=== PATIENT | female | born 2000 | race Caucasian/White ===

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

== ENCOUNTER 2018-01-04 21:30 | Emergency (ER) | payer BC | END 2018-01-04 22:25 | disposition left against medical advice (07) | LOC: ED 21:30 | DX: Z53.9 Procedure and treatment not carried out, unspecified reason (principal) ==

== ENCOUNTER 2018-01-09 15:16 | Emergency (ER) | payer BC ==
[2018-01-09] MEDS ORDERED: BACIGUENT PACKET TP ONE (15:28)
[2018-01-09] MEDS ORDERED: BACIGUENT PACKET ONE (15:31)
[2018-01-09 15:34] VITALS: BP 143/89; PULSE 75; O2SAT 98
--- NOTE | 2018-01-09 15:38 | ERPHSYRPT ---
- History of Present Illness Time Seen by Provider: 01/09/18 15:31 Source: patient Exam Limitations: no limitations Physician History: This is a 17-year-old white female she arrives with complaint of a burn to her distal left fourth finger radial aspect, 4 days ago She states today she was noticing drainage coming from the area feels like it is erythematous. Denies any other complaints. Patient states she burned herself on hot grease at home. Past medical history negative. Past surgical history tendon release left wrist. Social history negative. tetanus history less than 5 years Timing/Duration: day(s) (4 days ago) Severity: moderate Modifying Factors: Improves With: nothing Associated Symptoms: other (burn left fourth distal finger), No nausea, No vomiting, No abdominal pain, No shortness of breath, No heartburn, No diaphoresis, No cough, No chills, No chest pain, No fever, No headaches, No loss of appetite, No malaise, No rash, No syncope, No seizure, No weakness Allergies/Adverse Reactions: No Known Drug Allergies Allergy (Verified 05/28/17 18:19) Hx Tetanus, Diphtheria Vaccination/Date Given: Yes Hx Influenza Vaccination/Date Given: No Hx Pneumococcal Vaccination/Date Given: No - Review of Systems Constitutional: No Fever, No Chills Eyes: No Symptoms Ears, Nose, & Throat: No Symptoms Respiratory: No Cough, No Dyspnea Cardiac: No Chest Pain, No Edema, No Syncope Abdominal/Gastrointestinal: No Abdominal Pain, No Nausea, No Vomiting, No Diarrhea Genitourinary Symptoms: No Dysuria Musculoskeletal: No Back Pain, No Neck Pain Skin: Other (Burn left fourth distal finger 4 days old) Neurological: No Symptoms Psychological: No Symptoms Endocrine: No Symptoms All Other Systems: Reviewed and Negative - Past Medical History Pertinent Past Medical History: Yes Neurological History: No Pertinent History ENT History: No Pertinent History Cardiac History: No Pertinent History Respiratory History: No Pertinent History Endocrine Medical History: No Pertinent History Musculoskeletal History: No Pertinent History GI Medical History: No Pertinent History History: No Pertinent History Psycho-Social History: No Pertinent History Female Reproductive Disorders: No Pertinent History - Past Surgical History Past Surgical History: Yes Neuro Surgical History: No Pertinent History Cardiac: No Pertinent History Respiratory: No Pertinent History Gastrointestinal: Cholecystectomy Genitourinary: No Pertinent History Musculoskeletal: No Pertinent History Female Surgical History: No Pertinent History Other Surgical History: tendon release lt wrist - Social History Smoking Status: Former smoker How long have you smoked: 1yr Exposure to second hand smoke: Yes Drug Use: none Patient Lives Alone: No - Physical Exam General Appearance: no apparent distress, alert Eye Exam: PERRL/EOMI, eyes nml inspection Ears, Nose, Throat Exam: normal ENT inspection, TMs normal, pharynx normal, moist mucous membranes Neck Exam: normal inspection Respiratory Exam: normal breath sounds, lungs clear, No respiratory distress Cardiovascular Exam: regular rate/rhythm, normal heart sounds, normal peripheral pulses Gastrointestinal/Abdomen Exam: soft, normal bowel sounds, No tenderness, No mass Back Exam: normal inspection, normal range of motion, No CVA tenderness, No vertebral tenderness Extremity Exam: normal range of motion, other (left third distal finger with second-degree burn radial aspect previous vesicle has been removed slight erythema to the area.) Neurologic Exam: alert, oriented x 3, cooperative, normal mood/affect, nml cerebellar function, nml station & gait, sensation nml, No motor deficits Skin Exam: other (distal left third finger with second-degree burn mild erythema to the area burn located radial aspect overlying the distal phalanx) SpO2 Interpretation: normal (97%) - Course Nursing assessment & vital signs reviewed: Yes Ordered Tests: Active Orders 24 hr Category Date Time Status Wound Care STAT Care 01/09/18 15:28 Active Medication Summary Generic Name Dose Route Start Last Admin Trade Name Freq PRN Reason Stop Dose Admin Bacitracin Zinc 0.9 gm 01/09/18 15:28 Baciguent Packet TP 01/09/18 15:29 STAT ONE - Progress Progress: improved Progress Note: 01/09/18 15:35 This is a 17-year-old white female she arrives with complaint of a burn to her left third finger which she suffered 4 days ago on hot grease at home. Patient has full range of motion to all extremities. She has an approximately 1.51.5 cm area representing a second-degree burn on the radial aspect of her distal left third finger overlying the distal phalanx. She has mild erythema to the area she does state that she had had some drainage on this earlier today. Patient states that her tetanus is up-to-date last menstrual period approximately one half weeks ago. Will go ahead and have nurses clean the burn area, apply bacitracin and dress the burn area. Will place patient on Bactrim DS one orally twice a day for 10 days. Patient account continue placing bacitracin on the area. Keep area clean. Tylenol as needed for pain. - Departure Time of Disposition: 15:38 Departure Disposition: Home Clinical Impression: Second degree burn of finger of left hand Qualifiers: Encounter type: initial encounter Qualified Code(s): T23.222A - Burn of second degree of single left finger (nail) except thumb, initial encounter Condition: Fair Critical Care Time: No Referrals: DOCTOR,NO FAMILY [Primary Care Provider] - Additional Instructions: Return home. Clean area and apply bacitracin daily. Keep area clean. Bactrim DS as prescribed. Tylenol every 4 hours as needed for pain. Follow-up with your family doctor if symptoms no better in 48 hours become worse or persist longer than one week. Return for acute distress or for severe symptoms. Prescriptions: Smz/Tmp Ds Tablet [Bactrim Ds Tablet] 1 tab PO BID #20 tablet
== END 2018-01-09 15:53 | disposition home or self-care (01) ==
LOC: ED 15:16
DX: T23.222A Burn of second degree of single left finger (nail) except thumb, initial encounter (principal); X12.XXXA Contact with other hot fluids, initial encounter
CPT/HCPCS: 99283; A9270-GY

== ENCOUNTER 2018-02-09 22:04 | Emergency (ER) | payer BC ==
--- NOTE | 2018-02-09 22:56 | ERPHSYRPT ---
- History of Present Illness Time Seen by Provider: 02/09/18 22:51 Historian: patient, other (fiance) Exam Limitations: no limitations Patient Subjective Stated Complaint: Lower right sided abdominal pain Triage Nursing Assessment: Patient ambulated back to ED and transferred self to bed. Patient A+O X 3. Patient complains of lower right sided abdominal pain . Patient has been having pain for 2 days with vomiting and fever. Patient vomited before coming to ED. Patient fever this am was 102.0. Patient states she is having N/V. Abdomen noted to be soft and round with BS X 4. Physician History: The patient is a 17-year-old female with her fianc complaining that she has abdominal pain, nausea, vomiting, and diarrhea. The diarrhea is watery and has been going on for 3 days. The vomiting has been for 2 days. She also has intermittent fevers with temperature of up to 102. Her last menstrual period was December 17. [facility] and the test was negative. Her past medical history is significant for tonsillectomy, cholecystectomy. Timing/Duration: day(s) (2) Activities at Onset: none Quality: aching Abdominal Pain Onset Location: periumbilical Pain Radiation: no radiation Severity of Pain-Max: moderate Severity of Pain-Current: moderate Modifying Factors: Improves With: nothing Associated Symptoms: diarrhea, fever/chills, nausea, vomiting Previous symptoms: no prior history Allergies/Adverse Reactions: No Known Drug Allergies Allergy (Verified 02/09/18 22:22) Hx Tetanus, Diphtheria Vaccination/Date Given: No Hx Influenza Vaccination/Date Given: Yes Hx Pneumococcal Vaccination/Date Given: No Immunizations Up to Date: Yes - Review of Systems Eyes: No Symptoms Ears, Nose, & Throat: No Symptoms Respiratory: No Cough, No Dyspnea Cardiac: No Chest Pain, No Edema, No Syncope Abdominal/Gastrointestinal: Abdominal Pain, Nausea, Vomiting, Diarrhea Genitourinary Symptoms: No Dysuria Musculoskeletal: No Back Pain, No Neck Pain Skin: No Rash Neurological: No Dizziness, No Focal Weakness, No Sensory Changes Psychological: No Symptoms Endocrine: No Symptoms Hematologic/Lymphatic: No Symptoms Immunological/Allergic: No Symptoms All Other Systems: Reviewed and Negative - Past Medical History Pertinent Past Medical History: Yes Neurological History: No Pertinent History ENT History: No Pertinent History Cardiac History: No Pertinent History Respiratory History: No Pertinent History Endocrine Medical History: No Pertinent History Musculoskeletal History: No Pertinent History GI Medical History: No Pertinent History History: No Pertinent History Psycho-Social History: No Pertinent History Female Reproductive Disorders: No Pertinent History - Past Surgical History Past Surgical History: Yes Neuro Surgical History: No Pertinent History Cardiac: No Pertinent History Respiratory: No Pertinent History Gastrointestinal: Cholecystectomy Genitourinary: No Pertinent History Musculoskeletal: No Pertinent History Female Surgical History: No Pertinent History Other Surgical History: tendon release lt wrist - Social History Smoking Status: Never smoker How long have you smoked: 1yr Exposure to second hand smoke: Yes Drug Use: none Patient Lives Alone: No - Female History Hx Last Menstrual Period: December 17 Hx Now: No (Unsure) - Nursing Vital Signs Nursing Vital Signs: Initial Vital Signs Temperature 97.9 F 02/09/18 22:17 Pulse Rate 81 02/09/18 22:17 Respiratory Rate 18 02/09/18 22:17 Blood Pressure 154/77 02/09/18 22:17 O2 Sat by Pulse Oximetry 96 02/09/18 22:17 Pain Scale Pain Intensity 8 - Physical Exam General Appearance: mild distress, obese Eye Exam: PERRL/EOMI, eyes nml inspection Ears, Nose, Throat Exam: normal ENT inspection, pharynx normal, moist mucous membranes Neck Exam: normal inspection, non-tender, supple, full range of motion Respiratory Exam: normal breath sounds, lungs clear, No respiratory distress Cardiovascular Exam: regular rate/rhythm, normal heart sounds Gastrointestinal/Abdomen Exam: soft, tenderness (periumbilical) Pelvic Exam: not done Rectal Exam: not done Back Exam: normal inspection, normal range of motion, No CVA tenderness, No vertebral tenderness Extremity Exam: normal inspection, normal range of motion, pelvis stable Neurologic Exam: alert, oriented x 3, cooperative, normal mood/affect, nml cerebellar function, sensation nml, No motor deficits Skin Exam: normal color, warm, dry SpO2 Interpretation: normal SpO2: 96 Oxygen Delivery: Room Air - CT Exams Abdomen/Pelvis CT Interpretation: Negative, Tele-radiologist Report (per Dr Ahuja) Ordered Tests: Active Orders 24 hr Category Date Time Status Clean Catch Urine Specimen STAT Care 02/09/18 23:03 Active IV Insertion STAT Care 02/09/18 23:03 Active ABDOMEN AND PELVIS W/0 CONTRAS [CT] Stat Exams 02/09/18 23:04 Taken CBC W DIFF Stat Lab 02/09/18 22:45 Completed CMP Stat Lab 02/09/18 22:45 Completed HCG QUALITATIVE,SERUM Stat Lab 02/09/18 22:45 Completed LIPASE Stat Lab 02/09/18 22:45 Completed Lactic Acid Stat Lab 02/09/18 23:15 Completed UA W/RFX UR CULTURE Stat Lab 02/09/18 22:45 Completed Urine Triage Profile Stat Lab 02/09/18 22:45 Completed Medication Summary Discontinued Medications Generic Name Dose Route Start Last Admin Trade Name Antonyq PRN Reason Stop Dose Admin Famotidine 20 mg 02/09/18 23:03 02/09/18 23:37 Pepcid 20 Mg Vial IV 02/09/18 23:04 20 mg STAT ONE Administration Famotidine Confirm 02/09/18 23:35 Pepcid 20 Mg Vial Administered 02/09/18 23:36 Dose 20 mg IV .STK-MED ONE Sodium Chloride 1,000 mls @ 999 mls/hr 02/09/18 23:03 02/09/18 23:38 Sodium Chloride 0.9% 1000 Ml IV 02/10/18 00:03 999 mls/hr .Q1H1M STA Administration Sodium Chloride Confirm 02/09/18 23:35 Sodium Chloride 0.9% 1000 Ml Administered 02/09/18 23:36 Dose 1,000 mls @ ud .ROUTE .STK-MED ONE Morphine Sulfate 4 mg 02/09/18 23:03 02/09/18 23:37 Morphine Sulfate 4 Mg Inj IV 02/09/18 23:04 4 mg STAT ONE Administration Morphine Sulfate Confirm 02/09/18 23:35 Morphine Sulfate 4 Mg Inj Administered 02/09/18 23:36 Dose 4 mg .ROUTE .STK-MED ONE Promethazine HCl 12.5 mg 02/09/18 23:03 02/09/18 23:37 Phenergan 25 Mg Inj IV 02/09/18 23:04 12.5 mg STAT ONE Administration Promethazine HCl Confirm 02/09/18 23:35 Phenergan 25 Mg Inj Administered 02/09/18 23:36 Dose 25 mg .ROUTE .STK-MED ONE Lab/Rad Data: Laboratory Result Diagrams 02/09/18 22:45 02/09/18 22:45 Laboratory Results 02/09/18 02/09/18 02/09/18 Range/Units 23:15 22:45 22:45 WBC (4.0-10.5) K/mm3 RBC (4.1-5.4) M/mm3 Hgb (12.0-16.0) gm/dl Hct (35-47) % MCV (78-100) fl MCH (26-32) pg MCHC (32-36) g/dl RDW (11.5-14.0) % Plt Count (150-450) K/mm3 MPV (6-9.5) fl Gran % (36.0-66.0) % Eos # (Auto) (0-0.5) Absolute Lymphs (auto) (1.0-4.6) Absolute Monos (auto) (0.0-1.3) Lymphocytes % (24.0-44.0) % Monocytes % (0.0-12.0) % Eosinophils % (0.00-5.0) % Basophils % (0.0-0.4) % Absolute Granulocytes (1.4-6.9) Basophils # (0-0.4) Sodium (137-145) mmol/L Potassium (3.5-5.1) mmol/L Chloride (98-107) mmol/L Carbon Dioxide (22-30) mmol/L Anion Gap (5-15) MEQ/L BUN (7-17) mg/dL Creatinine (0.52-1.04) mg/dL Estimated GFR ML/MIN Glucose (74-106) mg/dL Lactic Acid 1.5 (0.4-2.0) Calcium (8.4-10.2) mg/dL Total Bilirubin (0.2-1.3) mg/dL AST (14-36) U/L ALT (0-35) U/L Alkaline Phosphatase (38-126) U/L Serum Total Protein (6.3-8.2) g/dL Albumin (3.5-5.0) g/dL Lipase (23-300) U/L Serum , Qual (Negative) Urine Color YELLOW (YELLOW) Urine Appearance SLIGHTLY CLOUDY (CLEAR) Urine pH 5.0 (5-6) Ur Specific [place] 1.017 (1.005-1.025) Urine Protein NEGATIVE (Negative) Urine Ketones NEGATIVE (NEGATIVE) Urine Blood NEGATIVE (0-5) Fabio/ul Urine Nitrite NEGATIVE (NEGATIVE) Urine Bilirubin NEGATIVE (NEGATIVE) Urine Urobilinogen NEGATIVE (0-1) mg/dL Ur Leukocyte Esterase NEGATIVE (NEGATIVE) Urine WBC (Auto) 0-2 (0-5) /HPF Urine RBC (Auto) NONE (0-2) /HPF U Epithel Cells (Auto) RARE (FEW) /HPF Urine Bacteria (Auto) RARE (NEGATIVE) /HPF Urine Mucus (Auto) SLIGHT (NEGATIVE) /HPF Urine Culture Reflexed NO (NO) Urine Glucose NEGATIVE (NEGATIVE) mg/dL Urine Opiates Level NEGATIVE (NEGATIVE) Ur Methadone NEGATIVE (NEGATIVE) Urine Barbiturates NEGATIVE (NEGATIVE) Ur Phencyclidine (PCP) NEGATIVE (NEGATIVE) Urine Amphetamine NEGATIVE (NEGATIVE) U Benzodiazepine Level NEGATIVE (NEGATIVE) Urine Cocaine NEGATIVE (NEGATIVE) Urine Marijuana (THC) NEGATIVE (NEGATIVE) 02/09/18 02/09/18 02/09/18 Range/Units 22:45 22:45 22:45 WBC 10.9 H (4.0-10.5) K/mm3 RBC 4.89 (4.1-5.4) M/mm3 Hgb 13.9 (12.0-16.0) gm/dl Hct 41.5 (35-47) % MCV 84.9 (78-100) fl MCH 28.4 (26-32) pg MCHC 33.5 (32-36) g/dl RDW 12.9 (11.5-14.0) % Plt Count 334 (150-450) K/mm3 MPV 10.5 H (6-9.5) fl Gran % 57.4 (36.0-66.0) % Eos # (Auto) 0.35 (0-0.5) Absolute Lymphs (auto) 3.62 (1.0-4.6) Absolute Monos (auto) 0.62 (0.0-1.3) Lymphocytes % 33.3 (24.0-44.0) % Monocytes % 5.7 (0.0-12.0) % Eosinophils % 3.2 (0.00-5.0) % Basophils % 0.4 (0.0-0.4) % Absolute Granulocytes 6.23 (1.4-6.9) Basophils # 0.04 (0-0.4) Sodium 140 (137-145) mmol/L Potassium 3.9 (3.5-5.1) mmol/L Chloride 105 (98-107) mmol/L Carbon Dioxide 23 (22-30) mmol/L Anion Gap 16.1 H (5-15) MEQ/L BUN 15 (7-17) mg/dL Creatinine 0.76 (0.52-1.04) mg/dL Estimated GFR > 60.0 ML/MIN Glucose 102 (74-106) mg/dL Lactic Acid (0.4-2.0) Calcium 9.7 (8.4-10.2) mg/dL Total Bilirubin 0.40 (0.2-1.3) mg/dL AST 29 (14-36) U/L ALT 26 (0-35) U/L Alkaline Phosphatase 81 (38-126) U/L Serum Total Protein 8.1 (6.3-8.2) g/dL Albumin 4.9 (3.5-5.0) g/dL Lipase 85 (23-300) U/L Serum , Qual NEGATIVE (Negative) Urine Color (YELLOW) Urine Appearance (CLEAR) Urine pH (5-6) Ur Specific [place] (1.005-1.025) Urine Protein (Negative) Urine Ketones (NEGATIVE) Urine Blood (0-5) Fabio/ul Urine Nitrite (NEGATIVE) Urine Bilirubin (NEGATIVE) Urine Urobilinogen (0-1) mg/dL Ur Leukocyte Esterase (NEGATIVE) Urine WBC (Auto) (0-5) /HPF Urine RBC (Auto) (0-2) /HPF U Epithel Cells (Auto) (FEW) /HPF Urine Bacteria (Auto) (NEGATIVE) /HPF Urine Mucus (Auto) (NEGATIVE) /HPF Urine Culture Reflexed (NO) Urine Glucose (NEGATIVE) mg/dL Urine Opiates Level (NEGATIVE) Ur Methadone (NEGATIVE) Urine Barbiturates (NEGATIVE) Ur Phencyclidine (PCP) (NEGATIVE) Urine Amphetamine (NEGATIVE) U Benzodiazepine Level (NEGATIVE) Urine Cocaine (NEGATIVE) Urine Marijuana (THC) (NEGATIVE) - Progress Progress: improved Counseled pt/family regarding: lab results, diagnosis, rad results - Departure Time of Disposition: 01:03 Departure Disposition: Home Clinical Impression: Gastroenteritis Condition: Stable Critical Care Time: No Referrals: DOCTOR,NO FAMILY [Primary Care Provider] - Additional Instructions: You have nausea, vomiting, and diarrhea (gastroenteritis). You were given famotidine 20 mg, morphine 4 mg, Phenergan 12 1/2 mg, and fluids by IV in the ER. Take Zofran 4 mg ODT every 6 hours as needed for nausea and vomiting. Start with a full liquid diet and advance slowly as tolerated. You were given a work excuse for 02/10/18. Follow-up with your primary medical doctor as needed. Your test was negative.
[2018-02-09] MEDS ORDERED: Phenergan 25 MG INJ IV ONE (23:03)
[2018-02-09] MEDS ORDERED: Sodium Chloride 0.9% 1000 ML 1,000 ML IV STA (23:03)
[2018-02-09] MEDS ORDERED: MORPHINE SULFATE 4 MG INJ IV ONE (23:03)
[2018-02-09] MEDS ORDERED: Pepcid 20 MG VIAL IV ONE ×2 (23:03→23:35)
[2018-02-09 23:23] LABS: BASOPHIL % 0.4 % (0.0-0.4); Basophil (Absolute #) 0.04 (0-0.4); Eosinophil % 3.2 % (0.00-5.0); Eosinophil (Absolute #) 0.35 (0-0.5); Granulocyte Absolute (ANC) 6.23 (1.4-6.9); Granulocytes % 57.4 % (36.0-66.0); Hematocrit 41.5 % (35-47); Hemoglobin 13.9 gm/dl (12.0-16.0); Lymphocyte (Absolute #) 3.62 (1.0-4.6); Lymphocytes % 33.3 % (24.0-44.0); Mean Cell Volume 84.9 fl (78-100); Mean Corpuscular Hemoglobin 28.4 pg (26-32); Mean Corpuscular Hgb Concent. 33.5 g/dl (32-36); Mean Platelet Volume 10.5 fl (6-9.5); Monocyte (Absolute #) 0.62 (0.0-1.3); Monocytes % 5.7 % (0.0-12.0); Platelet Count 334 K/mm3 (150-450); Red Blood Count 4.89 M/mm3 (4.1-5.4); Red Cell Distribution Width 12.9 % (11.5-14.0); White Blood Count 10.9 K/mm3 (4.0-10.5)
[2018-02-09] MEDS ORDERED: MORPHINE SULFATE 4 MG INJ ONE (23:35)
[2018-02-09] MEDS ORDERED: Phenergan 25 MG INJ ONE (23:35)
[2018-02-09] MEDS ORDERED: Sodium Chloride 0.9% 1000 ML 1,000 ML ONE (23:35)
[2018-02-09 23:39] LABS: ALBUMIN 4.9 g/dL (3.5-5.0); ALKALINE PHOSPHATASE 81 U/L (38-126); ANION GAP 16.1 MEQ/L (5-15); BLOOD UREA NITROGEN 15 mg/dL (7-17); CHLORIDE 105 mmol/L (98-107); Calcium 9.7 mg/dL (8.4-10.2); Carbon Dioxide 23 mmol/L (22-30); Creatinine 1 0.76 mg/dL (0.52-1.04); Glucose 102 mg/dL (74-106); LIPASE 85 U/L (23-300); Potassium 3.9 mmol/L (3.5-5.1); SGOT/AST 29 U/L (14-36); SGPT/ALT 26 U/L (0-35); SODIUM 140 mmol/L (137-145); Total Protein 8.1 g/dL (6.3-8.2)
[2018-02-09 23:42] LABS: Appearance SLIGHTLY CLOUDY (CLEAR); Bilirubin NEGATIVE (NEGATIVE); Blood NEGATIVE Ery/ul (0-5); Glucose NEGATIVE (NEGATIVE); Ketones NEGATIVE (NEGATIVE); Leukocyte Esterase NEGATIVE (NEGATIVE); Nitrite NEGATIVE (NEGATIVE); Protein,Urine Dip NEGATIVE (Negative); Specific Gravity 1.017 (1.005-1.025); Urobilinogen NEGATIVE mg/dL (0-1)
[2018-02-09 23:43] LABS: Amphetamine,Urine NEGATIVE (NEGATIVE); Barbiturate,Urine NEGATIVE (NEGATIVE); Benzodiazepine,Urine NEGATIVE (NEGATIVE); Cocaine,Urine NEGATIVE (NEGATIVE); Methadone,Urine NEGATIVE (NEGATIVE); Opiate,Urine NEGATIVE (NEGATIVE); PCP,Urine NEGATIVE (NEGATIVE); THC,Urine NEGATIVE (NEGATIVE)
[2018-02-09 23:52] VITALS: PULSE 65
[2018-02-10] MEDS ORDERED: ZOFRAN ODT 4 MG PO PRN (01:01)
[2018-02-10 01:02] VITALS: O2SAT 96
[2018-02-10 01:05] VITALS: BP 133/62
[2018-02-10] MEDS ORDERED: ZOFRAN ODT 4 MG ONE (01:08)
--- NOTE | 2018-02-11 00:14 | XRAY ---
Exam: CT of the abdomen and pelvis without IV contrast from 02/10/2018. CTDI: 23.68 Comparison: None. Indication: 17-year-old female with lower right side and periumbilical abdominal pain associated with nausea/vomiting and diarrhea. The patient also complains of fever. She has a history of prior cholecystectomy. Technique: Non-IV contrast axial images were obtained through the abdomen and pelvis. Reconstructed coronal and sagittal images were created and reviewed. Findings: The visualized lung bases appear clear. No posterior pleural fluid is seen. The heart size is normal. There is either abundant food or secretions within the stomach lumen. Correlate clinically. The liver appears of unremarkable size. Assessment of the solid organs is limited without the use of IV contrast. No definite liver mass or intrahepatic biliary duct distention is seen. Surgical clips consistent with prior cholecystectomy are seen. The spleen appears of unremarkable size. No splenic mass is seen. A small splenule is seen at the lower anterior margin of the spleen as an incidental note. The pancreas and adrenal glands appear normal. The kidneys appear of normal size and reveal no gross mass, hydronephrosis, or calculi. The abdominal aorta is of normal diameter. No abnormal retroperitoneal lymphadenopathy is seen. There is no free intraperitoneal air. No ventral abdominal wall hernia is seen. I see no findings of acute appendicitis within the right lower quadrant. No other acute inflammatory changes are seen within the right lower quadrant. Some scattered stool is seen throughout the colon. No bowel obstruction is seen. Minimal descending colon and sigmoid colon diverticulosis is seen without evidence of diverticulitis. The uterus is anteflexed. The ovaries are mildly prominent bilaterally. No definite ovarian cyst is seen. I cannot exclude a small amount of nonspecific fluid within the cul-de-sac. Consider further evaluation with a pelvic ultrasound if indicated. The urinary bladder is distended and appears unremarkable. No enlarged pelvic lymph nodes are seen. The pelvic sidewalls are clear. The skeleton reveals no acute fracture or aggressive bone lesion. Incidentally, moderate sized posterior disc protrusions are seen at L4-L5 and L5-S1 on the axial and sagittal images which is unusual in a patient of this age. Correlate clinically. Impression: 1. I see no CT findings to suggest acute appendicitis. 2. Both ovaries are mildly prominent, although no definite ovarian cyst is seen. I cannot exclude a small amount of free fluid within the cul-de-sac. This is nonspecific. Correlate clinically regarding the need for a pelvic ultrasound. 3. Minimal descending colon and sigmoid colon diverticulosis without evidence of diverticulitis. 4. Status post cholecystectomy. 5. No other acute process is seen within the abdomen or pelvis. I do note abundant secretions or food within the stomach lumen. 6. Moderate-sized posterior disc protrusions are seen at L4-L5 and L5-S1 which is somewhat unusual in a patient of this age. Correlate clinically.
== END 2018-02-10 01:24 | disposition home or self-care (01) ==
LOC: ED 22:04
DX: K52.9 Noninfective gastroenteritis and colitis, unspecified (principal); R10.33 Periumbilical pain; R11.2 Nausea with vomiting, unspecified
CPT/HCPCS: 36000; 36415; 74176; 80053; 80307; 81001; 81025; 83605; 83690; 85025; 96360; 96374; 96375; 99284; J2270; J2550; Q0162

== ENCOUNTER 2018-02-16 20:36 | Emergency (ER) | payer BC ==
[2018-02-16 20:44] VITALS: BP 159/96; O2SAT 100
--- NOTE | 2018-02-16 20:45 | ERPHSYRPT ---
- History of Present Illness Time Seen by Provider: 02/16/18 20:40 Source: patient, family Physician History: 17 y/o white female presents with "possible allergic reaction". pt has no known drug allergies. pt ate sugar cookie dough and then suddenly her tongue was swollen and she could not speak. no rash, no wheezing, no stridor. 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 pt denies difficulty swallowing and denies cough. Timing/Duration: today Severity: mild Associated Symptoms: No nausea, No vomiting, No abdominal pain, No shortness of breath, No cough, No fever, No headaches, No malaise, No rash, No syncope Allergies/Adverse Reactions: No Known Drug Allergies Allergy (Verified 02/09/18 22:22) Hx Tetanus, Diphtheria Vaccination/Date Given: No Hx Influenza Vaccination/Date Given: Yes Hx Pneumococcal Vaccination/Date Given: No - Review of Systems Constitutional: No Symptoms Eyes: No Symptoms Ears, Nose, & Throat: Other (sensation swollen tongue) Respiratory: No Symptoms Cardiac: No Symptoms Abdominal/Gastrointestinal: No Symptoms Genitourinary Symptoms: No Symptoms Musculoskeletal: No Symptoms Skin: No Symptoms Neurological: No Symptoms Psychological: No Symptoms Endocrine: No Symptoms Hematologic/Lymphatic: No Symptoms Immunological/Allergic: No Symptoms All Other Systems: Reviewed and Negative - Past Medical History Pertinent Past Medical History: Yes Neurological History: No Pertinent History ENT History: No Pertinent History Cardiac History: No Pertinent History Respiratory History: No Pertinent History Endocrine Medical History: No Pertinent History Musculoskeletal History: No Pertinent History GI Medical History: No Pertinent History History: No Pertinent History Psycho-Social History: No Pertinent History Female Reproductive Disorders: No Pertinent History - Past Surgical History Past Surgical History: Yes Neuro Surgical History: No Pertinent History Cardiac: No Pertinent History Respiratory: No Pertinent History Gastrointestinal: Cholecystectomy Genitourinary: No Pertinent History Musculoskeletal: No Pertinent History Female Surgical History: No Pertinent History Other Surgical History: tendon release lt wrist - Social History Smoking Status: Never smoker How long have you smoked: 1yr Exposure to second hand smoke: Yes Drug Use: none Patient Lives Alone: No - Physical Exam General Appearance: no apparent distress, alert, anxiety Eye Exam: PERRL/EOMI, eyes nml inspection Ears, Nose, Throat Exam: normal ENT inspection, pharynx normal, moist mucous membranes, other (no visible swollen tongue) Neck Exam: normal inspection, non-tender, supple, full range of motion, other ( no stridor) Respiratory Exam: normal breath sounds, lungs clear, No chest tenderness, No respiratory distress, No airway intact, No accessory muscle use, No rhonchi, No wheezing, No stridor Cardiovascular Exam: regular rate/rhythm, normal heart sounds, normal peripheral pulses Gastrointestinal/Abdomen Exam: soft, normal bowel sounds, No tenderness, No guarding, No rebound Pelvic Exam: not done Rectal Exam: not done Back Exam: normal inspection, normal range of motion, No CVA tenderness, No vertebral tenderness Extremity Exam: normal inspection, normal range of motion, pelvis stable Neurologic Exam: alert, oriented x 3, 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 return to ED if symptoms worsen Prescriptions: Prednisone 10 mg [Deltasone 10 mg] 10 mg PO TID #12 tablet Ranitidine HCl [Zantac] 150 mg PO BID #10 tablet
[2018-02-16] MEDS ORDERED: BENADRYL 25 MG CAPSULE PO ONE (20:52)
[2018-02-16] MEDS ORDERED: Pepcid 20 MG PO ONE (20:52)
[2018-02-16] MEDS ORDERED: DELTASONE 10 MG PO ONE (20:52)
[2018-02-16] MEDS ORDERED: Pepcid 20 MG ONE (20:59)
[2018-02-16] MEDS ORDERED: BENADRYL 25 MG CAPSULE ONE (20:59)
[2018-02-16] MEDS ORDERED: DELTASONE 20 MG ONE (20:59)
[2018-02-16 21:19] VITALS: PULSE 74
== END 2018-02-16 21:19 ==
LOC: ED 20:36
DX: T78.40XA Allergy, unspecified, initial encounter (principal)
CPT/HCPCS: 99283; A9270-GY

== ENCOUNTER 2018-02-21 16:03 | Emergency (ER) | payer BC ==
[2018-02-21] MEDS ORDERED: TORAdol 30 mg Injection IM ONE (16:53)
[2018-02-21] MEDS ORDERED: TORAdol 30 mg Injection ONE (16:56)
--- NOTE | 2018-02-21 16:57 | ERPHSYRPT ---
- History of Present Illness Time Seen by Provider: 02/21/18 16:48 Source: patient Exam Limitations: no limitations Patient Subjective Stated Complaint: PT states "The right side of my back hurts. It started about an hour ago, I sat down and it felt like a knot just below my ribs then spread down." Triage Nursing Assessment: Pt alert and oriented X 3, skin pt ambulates with an upright steady gait, able to speak in clear full sentences. Pt resting calmly and comfortably on the bed at this time. Physician History: 17-year-old white female arrives with complaint of pain in her right back described as sharp began just inferior to her ribs and radiating down the right side of her back. She denies any injury. Past medical history negative, past surgical history tendon release left wrist. 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 Timing/Duration: today Severity: moderate Modifying Factors: Improves With: nothing Associated Symptoms: No nausea, No vomiting, No abdominal pain, No shortness of breath, No heartburn, No diaphoresis, No cough, No chills, No chest pain, No fever, No headaches, No loss of appetite, No malaise, No rash, No syncope, No seizure, No weakness Allergies/Adverse Reactions: No Known Drug Allergies Allergy (Verified 02/09/18 22:22) Hx Tetanus, Diphtheria Vaccination/Date Given: Yes Hx Influenza Vaccination/Date Given: Yes Hx Pneumococcal Vaccination/Date Given: No Immunizations Up to Date: Yes - Review of Systems Constitutional: No Fever, No Chills Eyes: No Symptoms Ears, Nose, & Throat: No Symptoms Respiratory: No Cough, No Dyspnea Cardiac: No Chest Pain, No Edema, No Syncope Abdominal/Gastrointestinal: No Abdominal Pain, No Nausea, No Vomiting, No Diarrhea Genitourinary Symptoms: No Dysuria Musculoskeletal: Back Pain (pain right sided back pain just below ribs), No Neck Pain, No Deformity, No Fall, No Injury, No Joint Redness, No Joint Pain, No Joint Swelling, No Myalgias Skin: No Rash Neurological: No Dizziness, No Focal Weakness, No Sensory Changes Psychological: No Symptoms Endocrine: No Symptoms All Other Systems: Reviewed and Negative - Past Medical History Pertinent Past Medical History: Yes Neurological History: No Pertinent History ENT History: No Pertinent History Cardiac History: No Pertinent History Respiratory History: No Pertinent History Endocrine Medical History: No Pertinent History Musculoskeletal History: No Pertinent History GI Medical History: No Pertinent History History: No Pertinent History Psycho-Social History: No Pertinent History Female Reproductive Disorders: No Pertinent History - Past Surgical History Past Surgical History: Yes Neuro Surgical History: No Pertinent History Cardiac: No Pertinent History Respiratory: No Pertinent History Gastrointestinal: Cholecystectomy Genitourinary: No Pertinent History Musculoskeletal: No Pertinent History Female Surgical History: No Pertinent History Other Surgical History: tendon release lt wrist - Social History Smoking Status: Never smoker How long have you smoked: 1yr Exposure to second hand smoke: Yes Drug Use: none Patient Lives Alone: No - Female History Hx Last Menstrual Period: 02/20/2018 Hx Now: No - Nursing Vital Signs Nursing Vital Signs: Initial Vital Signs Temperature 98.1 F 02/21/18 16:12 Pulse Rate 62 02/21/18 16:12 Respiratory Rate 18 02/21/18 16:12 Blood Pressure 138/84 02/21/18 16:12 O2 Sat by Pulse Oximetry 100 02/21/18 16:12 Pain Scale Pain Intensity [Right Back] 10 Pain Intensity 9 - Physical Exam General Appearance: no apparent distress, alert Eye Exam: PERRL/EOMI, eyes nml inspection Ears, Nose, Throat Exam: normal ENT inspection, TMs normal, pharynx normal, moist mucous membranes Neck Exam: normal inspection, non-tender, supple, full range of motion Respiratory Exam: normal breath sounds, lungs clear, No respiratory distress Cardiovascular Exam: regular rate/rhythm, normal heart sounds, normal peripheral pulses Gastrointestinal/Abdomen Exam: soft, normal bowel sounds, No tenderness, No mass Back Exam: normal range of motion, other (pain with palpation right back thoracic region and lumbar region.) Extremity Exam: normal inspection, normal range of motion, pelvis stable Neurologic Exam: alert, oriented x 3, 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, 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, normal mood/affect, nml cerebellar function, nml station & gait, sensation nml, No motor deficits Skin Exam: normal color, warm, dry, No rash Lymphatic Exam: No adenopathy SpO2 Interpretation: normal (100%) SpO2: 100 Oxygen Delivery: Room Air Ordered Tests: Active Orders 24 hr Category Date Time Status CHEST 2 VIEWS (PA AND LAT) Stat Exams 02/21/18 18:53 Stop Req CULTURE,URINE Stat Lab 02/21/18 17:34 Received HCG QUALITATIVE,SERUM Stat Lab 02/21/18 17:10 Completed UA W/RFX UR CULTURE Stat Lab 02/21/18 17:34 Completed Urine Triage Profile Stat Lab 02/21/18 17:34 Completed Medication Summary Discontinued Medications Generic Name Dose Route Start Last Admin Trade Name Frances PRN Reason Stop Dose Admin Hydrocodone Bitart/Acetaminophen 2 tab 02/21/18 19:37 Garrison 5/325 Mg PO 02/21/18 19:38 SENT HOME W/ PATIENT ONE Ketorolac Tromethamine 60 mg 02/21/18 16:53 02/21/18 16:58 Toradol 30 Mg Injection IM 02/21/18 16:54 60 mg STAT ONE Administration Ketorolac Tromethamine Confirm 02/21/18 16:56 Toradol 30 Mg Injection Administered 02/21/18 16:57 Dose 60 mg .ROUTE .STK-MED ONE Trimethoprim/Sulfamethoxazole 1 tab 02/21/18 19:37 Bactrim Ds Tablet PO 02/21/18 19:38 STAT ONE Lab/Rad Data: Laboratory Results 02/21/18 02/21/18 02/21/18 Range/Units 17:34 17:34 17:10 Serum , Qual NEGATIVE (Negative) Urine Color YELLOW (YELLOW) Urine Appearance SLIGHTLY CLOUDY (CLEAR) Urine pH 6.0 (5-6) Ur Specific Frederick 1.025 (1.005-1.025) Urine Protein 30 (Negative) Urine Ketones NEGATIVE (NEGATIVE) Urine Blood LARGE (0-5) Fabio/ul Urine Nitrite NEGATIVE (NEGATIVE) Urine Bilirubin NEGATIVE (NEGATIVE) Urine Urobilinogen NEGATIVE (0-1) mg/dL Ur Leukocyte Esterase NEGATIVE (NEGATIVE) Urine WBC (Auto) 26-50 (0-5) /HPF Urine RBC (Auto) 51-100 (0-2) /HPF U Epithel Cells (Auto) RARE (FEW) /HPF Urine Bacteria (Auto) RARE (NEGATIVE) /HPF Unidentified Crystals 25-50 (NEGATIVE) /HPF Urine Mucus (Auto) SLIGHT (NEGATIVE) /HPF Urine Culture Reflexed YES (NO) Urine Glucose NEGATIVE (NEGATIVE) mg/dL Urine Opiates Level NEGATIVE (NEGATIVE) Ur Methadone NEGATIVE (NEGATIVE) Urine Barbiturates NEGATIVE (NEGATIVE) Ur Phencyclidine (PCP) NEGATIVE (NEGATIVE) Urine Amphetamine NEGATIVE (NEGATIVE) U Benzodiazepine Level NEGATIVE (NEGATIVE) Urine Cocaine NEGATIVE (NEGATIVE) Urine Marijuana (THC) NEGATIVE (NEGATIVE) - Progress Progress: improved Progress Note: 02/21/18 18:53 17-year-old white female arrives with complaint of pain in the right posterior thoracic region which began at rest he felt a ball in the area and began to have pain in the area she denies any injury. I have given the patient Toradol. HCG on the patient's is negative order chest patient. Urinalysis is ordered. 02/21/18 19:31 Patient with positive 26-50 wbc/hpf and 51-100 rbc/ hpf in her urine, patient on her menstrual period will place patient on bactrim and norco. - Departure Time of Disposition: 19:33 Departure Disposition: Home Clinical Impression: Back pain Qualifiers: Back pain location: thoracic back pain Chronicity: acute Back pain laterality: right Qualified Code(s): M54.6 - Pain in thoracic spine UTI (urinary tract infection) Qualifiers: Urinary tract infection type: site unspecified Hematuria presence: without hematuria Qualified Code(s): N39.0 - Urinary tract infection, site not specified Condition: Fair Critical Care Time: No Referrals: DOCTOR,NO FAMILY [Primary Care Provider] - Additional Instructions: Return home. Plenty of fluids. Garrison and Bactrim as prescribed. Follow-up with your family doctor return for acute distress or for severe symptoms. . Prescriptions: Hydrocodone/Acetaminophen [Garrison 5-325 Tablet] 1 tab PO Q4-6HPRN PRN #12 tablet MDD 6 tablets PRN Reason: Pain Smz/Tmp Ds Tablet [Bactrim Ds Tablet] 1 tab PO BID #20 tablet
[2018-02-21 18:52] LABS: Amphetamine,Urine NEGATIVE (NEGATIVE); Barbiturate,Urine NEGATIVE (NEGATIVE); Benzodiazepine,Urine NEGATIVE (NEGATIVE); Cocaine,Urine NEGATIVE (NEGATIVE); Methadone,Urine NEGATIVE (NEGATIVE); Opiate,Urine NEGATIVE (NEGATIVE); PCP,Urine NEGATIVE (NEGATIVE); THC,Urine NEGATIVE (NEGATIVE)
[2018-02-21 19:18] LABS: Appearance SLIGHTLY CLOUDY (CLEAR); Bilirubin NEGATIVE (NEGATIVE); Blood LARGE Ery/ul (0-5); Glucose NEGATIVE (NEGATIVE); Ketones NEGATIVE (NEGATIVE); Leukocyte Esterase NEGATIVE (NEGATIVE); Nitrite NEGATIVE (NEGATIVE); Protein,Urine Dip 30 (Negative); Specific Gravity 1.025 (1.005-1.025); Urobilinogen NEGATIVE mg/dL (0-1)
[2018-02-21] MEDS ORDERED: NORCO 5/325 MG PO ONE (19:37)
[2018-02-21] MEDS ORDERED: BACTRIM DS TABLET PO ONE ×2 (19:37→19:40)
[2018-02-21] MEDS ORDERED: NORCO 5/325 MG ONE ×2 (19:41→20:05)
[2018-02-21 20:15] VITALS: BP 125/62; PULSE 76; O2SAT 99
== END 2018-02-21 20:15 | disposition home or self-care (01) ==
LOC: ED 16:03
DX: M54.6 Pain in thoracic spine (principal); N39.0 Urinary tract infection, site not specified
CPT/HCPCS: 36415; 80307; 81001; 81025; 87086; 96372; 99284; J1885; A9270-GY

== ENCOUNTER 2018-04-05 08:27 | Day surgery (SDC) | payer BC, OTHER ==
[~2018-04-05 08:27] MED LIST: Lactated Ringers 1,000 ML IV SCH
[2018-04-05] MEDS ORDERED: DIPRIVAN 200 MG/20 ML IV ONE (08:28)
--- NOTE | 2018-04-05 08:37 | HP ---
DATE OF SURGERY: 04/05/2018 HISTORY OF PRESENT ILLNESS: She is a 17 year-old some problems with dysphagia. She has been on acid blockers. She had some inflammation on the upper GI study back in 2015 apparently. Family history negative for esophageal cancer or stomach cancer. No weight change recently. Problems with bread or meat getting stuck upper esophagus area. PAST MEDICAL HISTORY: Diabetes. PAST SURGICAL HISTORY: Wrist surgery. Cholecystectomy. Oophorectomy. MEDICATIONS: Metformin. ALLERGIES: NKDA. FAMILY HISTORY: Heart disease. Polycystic ovarian syndrome. Negative for esophageal cancer or stomach cancer. SOCIAL HISTORY: No smoking or alcohol abuse. REVIEW OF SYSTEMS: Twelve systems reviewed per admission assessment. No chest pain or palpitations other systems negative or noncontributory as above and per preadmission questionnaire. PHYSICAL EXAMINATION: GENERAL: No acute distress. HEENT: Sclerae nonicteric. NECK: No JVD. CHEST: Equal excursion, nonlabored breathing. CVS: Regular rate and rhythm. ABDOMEN: Soft. No peritoneal signs. EXTREMITIES: No significant edema. NEURO: Alert, oriented, moving extremities symmetrically. No gross motor deficits noted. RECTAL: Deferred timed to endoscopy exam. IMPRESSION: Dysphagia and some reflux. She is in need of EGD possible biopsy, possible dilatation. Shown the risk sheet, explained the procedure in detail but not limited to bleeding or infection, risk of bowel injury or perforation possibly requiring open procedure, risk of missed or nondiagnosis or incomplete exam possibility of dilatation performed and if improves her situation she may need it done again down the road. She understands as well as the possibility if she has more functional problem that dilatation may not help. She may need other further work up, studies or referrals. She understands as well as remote risk of perforation possibly requiring open procedure or transfer for stent placement. She understands all the above but not limited to, will proceed with EGD, possible biopsy, possible dilatation as an outpatient.
[2018-04-05 12:01] VITALS: PULSE 68; O2SAT 99
[2018-04-05 12:24] VITALS: BP 139/88
--- NOTE | 2018-04-05 15:39 | OP ---
SURGERY DATE/TIME: 04/05/2018 1029 PREOPERATIVE DIAGNOSIS: Dysphagia. POSTOPERATIVE DIAGNOSES: 1) Proximal esophageal narrowing and spasm. 2) Minimal to mild gastritis. 3) Distal esophagitis. PROCEDURES: 1) EGD with cold biopsy of the small bowel to evaluate for celiac sprue. 2) Cold biopsy of the antrum to evaluate for Helicobacter pylori. 3) Cold biopsy distal esophagus to evaluate for esophagitis. 4) Proximal esophageal balloon dilation proximal esophageal narrowing (size 20 balloon dilator). SURGEON: Dr. Silvino Rob. ANESTHESIA: MAC. ESTIMATED BLOOD LOSS: Minimal. INDICATIONS: As noted above. Risks and benefits explained in detail and not limited to and consent obtained. DESCRIPTION OF PROCEDURE AND FINDINGS: The patient is taken to the operating room. MAC anesthesia introduced. After official time out and no disagreement with planned procedure, bite block positioned. Video gastroscope easily passed in the oropharynx. She had a tight area in the proximal esophagus. There was no obvious mass to biopsy. It was felt this would benefit from dilating at the end of the procedure. The scope was just able to be passed through there but it was felt this would benefit from dilatation given her symptoms in this area at the end of the procedure. The scope passed down through the distal esophagus through the patent pylorus to the junction of the second and third portion of the duodenum. Given her symptom complaints and a little bit of flattening of the mucosa of the small bowel felt she warranted biopsy for celiac sprue. Cold biopsy was accomplished and good hemostasis noted, to evaluate for celiac sprue. The scope pulled back into the stomach. She had some minimal to mild chronic gastritis versus gastropathy. Cold biopsy taken for TIESHA-test to evaluate Helicobacter pylori. Good hemostasis noted. On retroflex there is no evidence of any significant hiatal hernia. Gastroesophageal junction fairly snug against the scope. Scope is straightened and pulled back. Gastroesophageal junction noted to be about 38 cm. Distal esophagus short segment with some distal esophagitis. Cold biopsy taken for further evaluation. Good hemostasis noted. There is no evidence of any masses. Scope pulled back up to proximal esophagus again to this symptomatic narrowed area where she is having her symptoms. There was no obvious mass to biopsy but it was felt this would benefit from dilatation. Therefore the scope passed back down in the stomach. Balloon catheter carefully advanced under direct vision and then pulled back up to the narrowed area proximal esophagus where it was gradually inflated first stage for 45 seconds size 18, second stage for 45 seconds size 19 for 45 seconds, final stage size 20 balloon dilator for 2 minutes. The balloon was then released and withdrawn. Scope much more easily passed through this area down into the stomach. It was gradually withdrawn. Good hemostasis noted at the biopsy site. There was no evidence of any issues secondary to dilatation at the esophageal dilatation site. No evidence of any full thickness issues or injury. The scope is withdrawn. The patient tolerated the procedure well. Findings discussed with the family out in the waiting area.
== END 2018-04-05 12:10 | disposition home or self-care (01) ==
LOC: SDC 08:27
PROVIDERS: ATTEND Surgery
DX: K29.70 Gastritis, unspecified, without bleeding (principal); K20.9 Esophagitis, unspecified; K22.2 Esophageal obstruction; K22.4 Dyskinesia of esophagus; R13.10 Dysphagia, unspecified
CPT/HCPCS: 84703; 87081; 88305; C1726; J2704

== ENCOUNTER 2018-07-18 01:17 | Emergency (ER) | payer OTHER ==
[2018-07-18] MEDS ORDERED: Sodium Chloride 0.9% 1000 ML 1,000 ML IV STA (01:49)
--- NOTE | 2018-07-18 01:52 | ERPHSYRPT ---
- History of Present Illness Time Seen by Provider: 07/18/18 01:46 Historian: patient Exam Limitations: no limitations Patient Subjective Stated Complaint: pt is alert and oriented. pt is ambulatory with a steady gait. pt comes in with c/o abd pain that started "13.5 hours ago" and has progressively gotten worse. pt states that the pain is in her lower center of her abdomen. pt abd is soft and tender to touch at umbulicus. pt bowel sounds present x4 pt denies abnormal stools. Triage Nursing Assessment: see above Physician History: 18-year-old white female with history of polycystic ovary disease arrives with complaint of suprapubic abdominal pain described as sharp going on for 13-1/2 hours denies vomiting denies diarrhea denies urinary symptoms. Past medical history is remarkable for polycystic ovary disease. Past surgical history includes cholecystectomy tendon repair release on the left wrist Social history denies tobacco alcohol or illicit drug use. Timing/Duration: today (13-1/2 hours) Activities at Onset: none Quality: cramping, sharpness Abdominal Pain Onset Location: suprapubic Pain Radiation: no radiation Severity of Pain-Max: moderate Severity of Pain-Current: moderate Modifying Factors: Improves With: nothing Associated Symptoms: No back, No chest pain, No diaphoresis, No diarrhea, No fever/chills, No fatigue, No headache, No heartburn, No loss of appetite, No nausea, No neck pain, No rash, No shortness of breath, No syncope, No vomiting, No weakness Previous symptoms: no prior history Allergies/Adverse Reactions: No Known Drug Allergies Allergy (Verified 04/05/18 08:49) Home Medications: Metformin HCl 500 mg [Glucophage 500 MG] 500 mg PO BIDWM 03/26/18 [History ] Hx Tetanus, Diphtheria Vaccination/Date Given: Yes Hx Influenza Vaccination/Date Given: Yes Hx Pneumococcal Vaccination/Date Given: No Immunizations Up to Date: Yes - Review of Systems Constitutional: No Fever, No Chills Eyes: No Symptoms Ears, Nose, & Throat: No Symptoms Respiratory: No Cough, No Dyspnea Cardiac: No Chest Pain, No Edema, No Syncope Abdominal/Gastrointestinal: Abdominal Pain (suprapubic abdominal pain) Genitourinary Symptoms: No Dysuria Musculoskeletal: No Back Pain, No Neck Pain Skin: No Rash Neurological: No Dizziness, No Focal Weakness, No Sensory Changes Psychological: No Symptoms Endocrine: No Symptoms All Other Systems: Reviewed and Negative - Past Medical History Pertinent Past Medical History: Yes Neurological History: No Pertinent History ENT History: No Pertinent History Cardiac History: No Pertinent History Respiratory History: No Pertinent History Endocrine Medical History: No Pertinent History Musculoskeletal History: No Pertinent History GI Medical History: No Pertinent History History: No Pertinent History Psycho-Social History: No Pertinent History Female Reproductive Disorders: No Pertinent History Other Medical History: PCOS-hormone imbalance - Past Surgical History Past Surgical History: Yes Neuro Surgical History: No Pertinent History Cardiac: No Pertinent History Respiratory: No Pertinent History Gastrointestinal: Cholecystectomy Genitourinary: No Pertinent History Musculoskeletal: Other Female Surgical History: No Pertinent History Other Surgical History: tendon release lt wrist. toenail removed. tendon released,egd - Social History Smoking Status: Never smoker How long have you smoked: 1yr Exposure to second hand smoke: No Drug Use: none Patient Lives Alone: No - Female History Hx Last Menstrual Period: 04/29/18 Hx Now: No - Nursing Vital Signs Nursing Vital Signs: Initial Vital Signs Temperature 98.4 F 07/18/18 01:37 Pulse Rate 77 07/18/18 01:37 Respiratory Rate 18 07/18/18 01:37 Blood Pressure 129/80 07/18/18 01:37 O2 Sat by Pulse Oximetry 99 07/18/18 01:37 Pain Scale Pain Intensity 10 - Physical Exam General Appearance: mild distress, alert Eye Exam: PERRL/EOMI, eyes nml inspection Ears, Nose, Throat Exam: normal ENT inspection, pharynx normal, moist mucous membranes Neck Exam: normal inspection, non-tender, supple, full range of motion Respiratory Exam: normal breath sounds, lungs clear, No respiratory distress Cardiovascular Exam: regular rate/rhythm, normal heart sounds, capillary refill <2 sec Gastrointestinal/Abdomen Exam: soft, normal bowel sounds, tenderness ( suprapubic tenderness), No distention, No mass, No guarding, No ecchymosis, No pulsatile mass, No rebound, No hernia, No hepatomegaly, No organomegaly, No splenomegaly Back Exam: normal inspection, normal range of motion, No CVA tenderness, No vertebral tenderness Extremity Exam: normal inspection, normal range of motion, pelvis stable Neurologic Exam: alert, oriented x 3, cooperative, 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 No acute abdominal findings 2. Small amount of nonspecific pelvic free fluid. Relatively prominent ovaries not very different from previous exam.) Ordered Tests: Active Orders 24 hr Category Date Time Status IV Insertion STAT Care 07/18/18 01:49 Active ABDOMEN AND PELVIS W/0 CONTRAS [CT] Stat Exams 07/18/18 02:35 Taken AMYLASE Stat Lab 07/18/18 02:04 Completed CBC W DIFF Stat Lab 07/18/18 02:04 Completed CMP Stat Lab 07/18/18 02:04 Completed HCG QUALITATIVE,SERUM Stat Lab 07/18/18 02:04 Completed LIPASE Stat Lab 07/18/18 02:04 Completed UA W/RFX UR CULTURE Stat Lab 07/18/18 02:34 Completed Medication Summary Discontinued Medications Generic Name Dose Route Start Last Admin Trade Name Freq PRN Reason Stop Dose Admin Hydrocodone Bitart/Acetaminophen 2 tab 07/18/18 04:29 07/18/18 04:38 [place] 5/325 Mg PO 07/18/18 04:30 2 tab SENT HOME W/ PATIENT ONE Administration Hydrocodone Bitart/Acetaminophen Confirm 07/18/18 04:34 [place] 5/325 Mg Administered 07/18/18 04:35 Dose 2 tab .ROUTE .STK-MED ONE Sodium Chloride 1,000 mls @ 999 mls/hr 07/18/18 01:49 07/18/18 02:26 Sodium Chloride 0.9% 1000 Ml IV 07/18/18 02:49 999 mls/hr .Q1H1M STA Administration Sodium Chloride Confirm 07/18/18 02:22 Sodium Chloride 0.9% 1000 Ml Administered 07/18/18 02:23 Dose 1,000 mls @ ud .ROUTE .STK-MED ONE Ketorolac Tromethamine 30 mg 07/18/18 04:24 07/18/18 04:28 Toradol 30 Mg Injection IV 07/18/18 04:25 30 mg STAT ONE Administration Ketorolac Tromethamine Confirm 07/18/18 04:26 Toradol 30 Mg Injection Administered 07/18/18 04:27 Dose 30 mg .ROUTE .STK-MED ONE Lab/Rad Data: Laboratory Result Diagrams 07/18/18 02:04 07/18/18 02:04 Laboratory Results 07/18/18 07/18/18 07/18/18 Range/Units 02:34 02:04 02:04 WBC (4.0-10.5) K/mm3 RBC (4.1-5.4) M/mm3 Hgb (12.0-16.0) gm/dl Hct (35-47) % MCV (78-100) fl MCH (26-32) pg MCHC (32-36) g/dl RDW (11.5-14.0) % Plt Count (150-450) K/mm3 MPV (6-9.5) fl Gran % (36.0-66.0) % Eos # (Auto) (0-0.5) Absolute Lymphs (auto) (1.0-4.6) Absolute Monos (auto) (0.0-1.3) Lymphocytes % (24.0-44.0) % Monocytes % (0.0-12.0) % Eosinophils % (0.00-5.0) % Basophils % (0.0-0.4) % Absolute Granulocytes (1.4-6.9) Basophils # (0-0.4) Sodium 143 (137-145) mmol/L Potassium 3.8 (3.5-5.1) mmol/L Chloride 106 (98-107) mmol/L Carbon Dioxide 25 (22-30) mmol/L Anion Gap 16.1 H (5-15) MEQ/L BUN 14 (7-17) mg/dL Creatinine 1.43 H (0.52-1.04) mg/dL Estimated GFR 49.7 ML/MIN Glucose 98 (74-106) mg/dL Calcium 9.3 (8.4-10.2) mg/dL Total Bilirubin 0.20 (0.2-1.3) mg/dL AST 26 (14-36) U/L ALT 31 (0-35) U/L Alkaline Phosphatase 77 (38-126) U/L Serum Total Protein 7.4 (6.3-8.2) g/dL Albumin 4.2 (3.5-5.0) g/dL Amylase 44 (30-110) U/L Lipase 61 (23-300) U/L Serum , Qual NEGATIVE (Negative) Urine Color YELLOW (YELLOW) Urine Appearance SLIGHTLY CLOUDY (CLEAR) Urine pH 7.0 (5-6) Ur Specific [place] 1.029 (1.005-1.025) Urine Protein NEGATIVE (Negative) Urine Ketones NEGATIVE (NEGATIVE) Urine Blood NEGATIVE (0-5) Fabio/ul Urine Nitrite NEGATIVE (NEGATIVE) Urine Bilirubin NEGATIVE (NEGATIVE) Urine Urobilinogen NEGATIVE (0-1) mg/dL Ur Leukocyte Esterase NEGATIVE (NEGATIVE) Urine WBC (Auto) 3-5 (0-5) /HPF Urine RBC (Auto) 0-2 (0-2) /HPF U Epithel Cells (Auto) RARE (FEW) /HPF Urine Bacteria (Auto) RARE (NEGATIVE) /HPF Urine Mucus (Auto) SLIGHT (NEGATIVE) /HPF Urine Culture Reflexed NO (NO) Urine Glucose NEGATIVE (NEGATIVE) mg/dL 07/18/18 Range/Units 02:04 WBC 11.5 H (4.0-10.5) K/mm3 RBC 4.63 (4.1-5.4) M/mm3 Hgb 13.5 (12.0-16.0) gm/dl Hct 40.2 (35-47) % MCV 86.8 (78-100) fl MCH 29.2 (26-32) pg MCHC 33.6 (32-36) g/dl RDW 12.9 (11.5-14.0) % Plt Count 313 (150-450) K/mm3 MPV 10.2 H (6-9.5) fl Gran % 55.5 (36.0-66.0) % Eos # (Auto) 0.36 (0-0.5) Absolute Lymphs (auto) 3.90 (1.0-4.6) Absolute Monos (auto) 0.79 (0.0-1.3) Lymphocytes % 33.9 (24.0-44.0) % Monocytes % 6.9 (0.0-12.0) % Eosinophils % 3.1 (0.00-5.0) % Basophils % 0.6 (0.0-0.4) % Absolute Granulocytes 6.40 (1.4-6.9) Basophils # 0.07 (0-0.4) Sodium (137-145) mmol/L Potassium (3.5-5.1) mmol/L Chloride (98-107) mmol/L Carbon Dioxide (22-30) mmol/L Anion Gap (5-15) MEQ/L BUN (7-17) mg/dL Creatinine (0.52-1.04) mg/dL Estimated GFR ML/MIN Glucose (74-106) mg/dL Calcium (8.4-10.2) mg/dL Total Bilirubin (0.2-1.3) mg/dL AST (14-36) U/L ALT (0-35) U/L Alkaline Phosphatase (38-126) U/L Serum Total Protein (6.3-8.2) g/dL Albumin (3.5-5.0) g/dL Amylase (30-110) U/L Lipase (23-300) U/L Serum , Qual (Negative) Urine Color (YELLOW) Urine Appearance (CLEAR) Urine pH (5-6) Ur Specific [place] (1.005-1.025) Urine Protein (Negative) Urine Ketones (NEGATIVE) Urine Blood (0-5) Fabio/ul Urine Nitrite (NEGATIVE) Urine Bilirubin (NEGATIVE) Urine Urobilinogen (0-1) mg/dL Ur Leukocyte Esterase (NEGATIVE) Urine WBC (Auto) (0-5) /HPF Urine RBC (Auto) (0-2) /HPF U Epithel Cells (Auto) (FEW) /HPF Urine Bacteria (Auto) (NEGATIVE) /HPF Urine Mucus (Auto) (NEGATIVE) /HPF Urine Culture Reflexed (NO) Urine Glucose (NEGATIVE) mg/dL - Progress Progress: improved Progress Note: 07/18/18 04:24 18-year-old white female with history of polycystic ovary disease arrives with complaint of suprapubic abdominal pain she states states she is not vomiting at this time not nauseous. Patient given 1 L of normal saline. Patient with a white count 11.5 hemoglobin 13.5 hematocrit 40.2 platelets 313 Chemistry sodium 143 potassium 3.8 chloride 106 bicarbonate 25 BUN 14 creatinine 1.43 glucose 98 total bilirubin 0.2 amylase 44 lipase 61 hCG is negative urinalysis unremarkable. Patient had CT of the abdomen impression 1 no acute abdominal findings to small amount of nonspecific elevate free fluid. Relatively prominent ovaries not very difference from previous exam. Plan we'll go ahead and give patient Toradol 30 mg IV. Will plan discharge with [place] prescription . 07/18/18 06:20 - Departure Departure Disposition: Home Clinical Impression: Suprapubic abdominal pain Condition: Fair Critical Care Time: No Referrals: SKYLAR PARSON [Primary Care Provider] - Instructions: Acute Pelvic Pain (DC) Additional Instructions: Return home. Plenty of fluids. Clear fluids only 24-48 hours if abdominal pain. [place] as prescribed. Follow-up with your family doctor if symptoms worse, no better in 24-48 hours or persist longer than 72 hours. Return for acute distress or for severe symptoms. Prescriptions: Hydrocodone/APAP 5-325 Tab^^^ [[place] 5-325 Tablet^^^] 1 tab PO Q6HPRN PRN #10 tablet MDD 6 PRN Reason: Pain
[2018-07-18 02:08] LABS: BASOPHIL % 0.6 % (0.0-0.4); Basophil (Absolute #) 0.07 (0-0.4); Eosinophil % 3.1 % (0.00-5.0); Eosinophil (Absolute #) 0.36 (0-0.5); Granulocytes % 55.5 % (36.0-66.0); Hematocrit 40.2 % (35-47); Hemoglobin 13.5 gm/dl (12.0-16.0); Lymphocytes % 33.9 % (24.0-44.0); Mean Cell Volume 86.8 fl (78-100); Mean Corpuscular Hemoglobin 29.2 pg (26-32); Mean Corpuscular Hgb Concent. 33.6 g/dl (32-36); Mean Platelet Volume 10.2 fl (6-9.5); Monocyte (Absolute #) 0.79 (0.0-1.3); Monocytes % 6.9 % (0.0-12.0); Platelet Count 313 K/mm3 (150-450); Red Blood Count 4.63 M/mm3 (4.1-5.4); Red Cell Distribution Width 12.9 % (11.5-14.0); White Blood Count 11.5 K/mm3 (4.0-10.5)
[2018-07-18] MEDS ORDERED: Sodium Chloride 0.9% 1000 ML 1,000 ML ONE (02:22)
[2018-07-18 02:31] LABS: ALBUMIN 4.2 g/dL (3.5-5.0); ANION GAP 16.1 MEQ/L (5-15); BILIRUBIN,TOTAL 0.2 mg/dL (0.2-1.3); Calcium 9.3 mg/dL (8.4-10.2); Creatinine 1 1.43 mg/dL (0.52-1.04); Potassium 3.8 mmol/L (3.5-5.1); Total Protein 7.4 g/dL (6.3-8.2)
[2018-07-18 02:44] LABS: Appearance SLIGHTLY CLOUDY (CLEAR); Bacteria RARE /HPF (NEGATIVE); Bilirubin NEGATIVE (NEGATIVE); Blood NEGATIVE Ery/ul (0-5); Epithelial Cells RARE /HPF (FEW); Glucose NEGATIVE (NEGATIVE); Ketones NEGATIVE (NEGATIVE); Leukocyte Esterase NEGATIVE (NEGATIVE); Mucus SLIGHT /HPF (NEGATIVE); Nitrite NEGATIVE (NEGATIVE); Protein,Urine Dip NEGATIVE (Negative); RBC 0-2 /HPF (0-2); Specific Gravity 1.029 (1.005-1.025); Urobilinogen NEGATIVE mg/dL (0-1)
[2018-07-18] MEDS ORDERED: TORAdol 30 mg Injection IV ONE (04:24)
[2018-07-18] MEDS ORDERED: TORAdol 30 mg Injection ONE (04:26)
[2018-07-18] MEDS ORDERED: NORCO 5/325 MG PO ONE (04:29)
[2018-07-18] MEDS ORDERED: NORCO 5/325 MG ONE (04:34)
[2018-07-18 04:47] VITALS: BP 121/77; PULSE 74
[2018-07-18 06:23] VITALS: O2SAT 99
--- NOTE | 2018-07-18 08:23 | XRAY ---
Indication: Lower abdomen pain. Elevated WBC. Multiple contiguous axial images obtained through the abdomen and pelvis without contrast as ordered. Comparison: February 10, 2018. Lung bases are clear. Heart is not enlarged. Stomach is distended with food/fluid. Noncontrasted stomach and bowel loops appear nonobstructed. Normal appendix. Again minimal sigmoid diverticulosis. Again small cul-de-sac fluid presumed physiologic from rupture/leaking cyst. No free air. Again cholecystectomy. Remaining liver, pancreas, spleen, adrenal glands, kidneys, ureters, bladder, uterus, and aorta appear unremarkable for noncontrast exam. Osseous structures intact again with lower lumbar degenerative disc disease. No ventral or inguinal hernias. Impression: 1. Again cul-de-sac fluid presumed physiologic. 2. Sigmoid diverticulosis without diverticulitis. 3. Remaining CT abdomen/pelvis without contrast exam is negative. Comment: Preliminary interpretation was made by [facility]. No critical discrepancy. CTDI 28.13
== END 2018-07-18 04:40 | disposition home or self-care (01) ==
LOC: ED 01:17
DX: R10.30 Lower abdominal pain, unspecified (principal); E28.2 Polycystic ovarian syndrome
CPT/HCPCS: 36000; 36415; 74176; 80053; 81001; 81025; 82150; 83690; 85025; 96360; 96374; 99284; J1885; A9270-GY

== ENCOUNTER 2018-07-29 10:09 | Emergency (ER) | payer OTHER ==
[2018-07-29] MEDS ORDERED: TORAdol 30 mg Injection IV ONE (10:27)
[2018-07-29] MEDS ORDERED: Zofran 4 MG/2 ML VIAL IV ONE (10:27)
[2018-07-29] MEDS ORDERED: Sodium Chloride 0.9% 1000 ML 1,000 ML IV STA (10:27)
--- NOTE | 2018-07-29 10:30 | ERPHSYRPT ---
- History of Present Illness Time Seen by Provider: 07/29/18 10:28 Historian: patient Patient Subjective Stated Complaint: Pt states "For the past 11 days I have been having abdominal pain." Triage Nursing Assessment: Pt presented through the front door, alert and oriented X 3, skin pwd. Pt ambualtes with an upright steady gait, able to speak in clear full sentences. PT sitting on bed calmly. Physician History: mild right flank cramps, nonrad for one day, +NV, no fever, no injury Allergies/Adverse Reactions: No Known Drug Allergies Allergy (Verified 04/05/18 08:49) Home Medications: Metformin HCl 500 mg [Glucophage 500 MG] 500 mg PO BIDWM 03/26/18 [History ] Hx Tetanus, Diphtheria Vaccination/Date Given: No Hx Influenza Vaccination/Date Given: Yes Hx Pneumococcal Vaccination/Date Given: No Immunizations Up to Date: Yes - Review of Systems Constitutional: No Fever Eyes: No Eye Redness Ears, Nose, & Throat: No Mouth Pain Respiratory: No Dyspnea Cardiac: No Chest Pain Abdominal/Gastrointestinal: Abdominal Pain, Nausea, Vomiting Skin: No Rash Neurological: No Dizziness - Past Medical History Pertinent Past Medical History: Yes Neurological History: No Pertinent History ENT History: No Pertinent History Cardiac History: No Pertinent History Respiratory History: No Pertinent History Endocrine Medical History: No Pertinent History Musculoskeletal History: No Pertinent History GI Medical History: No Pertinent History History: No Pertinent History Psycho-Social History: No Pertinent History Female Reproductive Disorders: No Pertinent History Other Medical History: PCOS-hormone imbalance - Past Surgical History Past Surgical History: Yes Neuro Surgical History: No Pertinent History Cardiac: No Pertinent History Respiratory: No Pertinent History Gastrointestinal: Cholecystectomy Genitourinary: No Pertinent History Musculoskeletal: Other Female Surgical History: No Pertinent History Other Surgical History: tendon release lt wrist. toenail removed. tendon released,egd - Social History Smoking Status: Never smoker How long have you smoked: 1yr Exposure to second hand smoke: No Drug Use: none Patient Lives Alone: No - Female History Hx Last Menstrual Period: 07/27/2018 Hx Now: No - Nursing Vital Signs Nursing Vital Signs: Initial Vital Signs Temperature 98.1 F 07/29/18 10:13 Pulse Rate 77 07/29/18 10:13 Respiratory Rate 16 07/29/18 10:13 Blood Pressure 154/71 07/29/18 10:13 O2 Sat by Pulse Oximetry 100 07/29/18 10:13 Pain Scale Pain Intensity 10 - Physical Exam General Appearance: no apparent distress Eye Exam: eyes nml inspection Ears, Nose, Throat Exam: moist mucous membranes Neck Exam: normal inspection Respiratory Exam: normal breath sounds Cardiovascular Exam: regular rate/rhythm Gastrointestinal/Abdomen Exam: soft, tenderness, No rebound Extremity Exam: normal inspection Neurologic Exam: alert, oriented x 3 Skin Exam: normal color, warm, dry SpO2 Interpretation: normal SpO2: 100 - Course Nursing assessment & vital signs reviewed: Yes - CT Exams Abdomen/Pelvis CT Interpretation: Negative, Discussed w/radiologist Ordered Tests: Active Orders 24 hr Category Date Time Status IV Insertion STAT Care 07/29/18 10:27 Active ABDOMEN AND PELVIS W/0 CONTRAS [CT] Stat Exams 07/29/18 10:50 Completed CBC W DIFF Stat Lab 07/29/18 10:40 Completed CMP Stat Lab 07/29/18 10:40 Completed CULTURE,URINE Stat Lab 07/29/18 10:20 Received HCG,QUALITATIVE URINE Stat Lab 07/29/18 10:20 Completed LIPASE Stat Lab 07/29/18 10:40 Completed UA W/RFX UR CULTURE Stat Lab 07/29/18 10:20 Completed Medication Summary Discontinued Medications Generic Name Dose Route Start Last Admin Trade Name Antonyq PRN Reason Stop Dose Admin Sodium Chloride 1,000 mls @ 999 mls/hr 07/29/18 10:27 07/29/18 10:43 Sodium Chloride 0.9% 1000 Ml IV 07/29/18 11:27 999 mls/hr .Q1H1M STA Administration Sodium Chloride Confirm 07/29/18 10:41 Sodium Chloride 0.9% 1000 Ml Administered 07/29/18 10:42 Dose 1,000 mls @ ud .ROUTE .STK-MED ONE Ketorolac Tromethamine 30 mg 07/29/18 10:27 07/29/18 10:43 Toradol 30 Mg Injection IV 07/29/18 10:28 30 mg STAT ONE Administration Ketorolac Tromethamine Confirm 07/29/18 10:41 Toradol 30 Mg Injection Administered 07/29/18 10:42 Dose 30 mg .ROUTE .STK-MED ONE Ondansetron HCl 4 mg 07/29/18 10:27 07/29/18 10:43 Zofran 4 Mg/2 Ml Vial IV 07/29/18 10:28 4 mg STAT ONE Administration Ondansetron HCl Confirm 07/29/18 10:41 Zofran 4 Mg/2 Ml Vial Administered 07/29/18 10:42 Dose 4 mg .ROUTE .STK-MED ONE Lab/Rad Data: Laboratory Result Diagrams 07/29/18 10:40 07/29/18 10:40 Laboratory Results 07/29/18 07/29/18 07/29/18 Range/Units 10:40 10:40 10:20 WBC 6.7 (4.0-10.5) K/mm3 RBC 4.61 (4.1-5.4) M/mm3 Hgb 13.1 (12.0-16.0) gm/dl Hct 39.8 (35-47) % MCV 86.3 (78-100) fl MCH 28.4 (26-32) pg MCHC 32.9 (32-36) g/dl RDW 12.5 (11.5-14.0) % Plt Count 302 (150-450) K/mm3 MPV 9.6 H (6-9.5) fl Gran % 54.1 (36.0-66.0) % Eos # (Auto) 0.26 (0-0.5) Absolute Lymphs (auto) 2.29 (1.0-4.6) Absolute Monos (auto) 0.47 (0.0-1.3) Lymphocytes % 34.3 (24.0-44.0) % Monocytes % 7.0 (0.0-12.0) % Eosinophils % 3.9 (0.00-5.0) % Basophils % 0.7 (0.0-0.4) % Absolute Granulocytes 3.60 (1.4-6.9) Basophils # 0.05 (0-0.4) Sodium 140 (137-145) mmol/L Potassium 4.2 (3.5-5.1) mmol/L Chloride 105 (98-107) mmol/L Carbon Dioxide 25 (22-30) mmol/L Anion Gap 14.4 (5-15) MEQ/L BUN 13 (7-17) mg/dL Creatinine 0.80 (0.52-1.04) mg/dL Estimated GFR > 60.0 ML/MIN Glucose 98 (74-106) mg/dL Calcium 9.1 (8.4-10.2) mg/dL Total Bilirubin 0.40 (0.2-1.3) mg/dL AST 24 (14-36) U/L ALT 30 (0-35) U/L Alkaline Phosphatase 79 (38-126) U/L Serum Total Protein 7.2 (6.3-8.2) g/dL Albumin 4.1 (3.5-5.0) g/dL Lipase 53 (23-300) U/L Urine Color (YELLOW) Urine Appearance (CLEAR) Urine pH (5-6) Ur Specific [place] (1.005-1.025) Urine Protein (Negative) Urine Ketones (NEGATIVE) Urine Blood (0-5) Fabio/ul Urine Nitrite (NEGATIVE) Urine Bilirubin (NEGATIVE) Urine Urobilinogen (0-1) mg/dL Ur Leukocyte Esterase (NEGATIVE) Urine WBC (Auto) (0-5) /HPF Urine RBC (Auto) (0-2) /HPF U Epithel Cells (Auto) (FEW) /HPF Urine Bacteria (Auto) (NEGATIVE) /HPF Urine Culture Reflexed (NO) Urine Glucose (NEGATIVE) mg/dL Urine HCG, Qual NEGATIVE (Negative) 07/29/18 Range/Units 10:20 WBC (4.0-10.5) K/mm3 RBC (4.1-5.4) M/mm3 Hgb (12.0-16.0) gm/dl Hct (35-47) % MCV (78-100) fl MCH (26-32) pg MCHC (32-36) g/dl RDW (11.5-14.0) % Plt Count (150-450) K/mm3 MPV (6-9.5) fl Gran % (36.0-66.0) % Eos # (Auto) (0-0.5) Absolute Lymphs (auto) (1.0-4.6) Absolute Monos (auto) (0.0-1.3) Lymphocytes % (24.0-44.0) % Monocytes % (0.0-12.0) % Eosinophils % (0.00-5.0) % Basophils % (0.0-0.4) % Absolute Granulocytes (1.4-6.9) Basophils # (0-0.4) Sodium (137-145) mmol/L Potassium (3.5-5.1) mmol/L Chloride (98-107) mmol/L Carbon Dioxide (22-30) mmol/L Anion Gap (5-15) MEQ/L BUN (7-17) mg/dL Creatinine (0.52-1.04) mg/dL Estimated GFR ML/MIN Glucose (74-106) mg/dL Calcium (8.4-10.2) mg/dL Total Bilirubin (0.2-1.3) mg/dL AST (14-36) U/L ALT (0-35) U/L Alkaline Phosphatase (38-126) U/L Serum Total Protein (6.3-8.2) g/dL Albumin (3.5-5.0) g/dL Lipase (23-300) U/L Urine Color RED (YELLOW) Urine Appearance CLOUDY (CLEAR) Urine pH 7.0 (5-6) Ur Specific [place] 1.019 (1.005-1.025) Urine Protein 30 (Negative) Urine Ketones NEGATIVE (NEGATIVE) Urine Blood LARGE (0-5) Fabio/ul Urine Nitrite NEGATIVE (NEGATIVE) Urine Bilirubin NEGATIVE (NEGATIVE) Urine Urobilinogen NEGATIVE (0-1) mg/dL Ur Leukocyte Esterase NEGATIVE (NEGATIVE) Urine WBC (Auto) 0-2 (0-5) /HPF Urine RBC (Auto) >101 (0-2) /HPF U Epithel Cells (Auto) RARE (FEW) /HPF Urine Bacteria (Auto) FEW (NEGATIVE) /HPF Urine Culture Reflexed YES (NO) Urine Glucose NEGATIVE (NEGATIVE) mg/dL Urine HCG, Qual (Negative) - Progress Progress: improved Progress Note: 07/29/18 11:46 see your doctor, return if worse, differential includes occult renal stone, uti , early appendicitis, keflex, zofran, oral fluids, rest - Departure Departure Disposition: Home Clinical Impression: UTI (urinary tract infection) Qualifiers: Urinary tract infection type: acute cystitis Hematuria presence: with hematuria Qualified Code(s): N30.01 - Acute cystitis with hematuria Condition: Stable Critical Care Time: No Referrals: SKYLAR PARSON [Primary Care Provider] - Instructions: Acute Abdomen (Belly Pain), Adult (DC) Prescriptions: Ondansetron ODT 4 MG [Zofran Odt 4 mg] 4 mg PO Q6H PRN PRN 3 Days #10 tab.rapdis PRN Reason: Nausea/Vomiting Cephalexin 250 mg/5 ml Susp [Keflex 250 mg/5 ml Susp] 5 ml PO QID #100 bottle
[2018-07-29] MEDS ORDERED: Sodium Chloride 0.9% 1000 ML 1,000 ML ONE (10:41)
[2018-07-29] MEDS ORDERED: TORAdol 30 mg Injection ONE (10:41)
[2018-07-29] MEDS ORDERED: Zofran 4 MG/2 ML VIAL ONE (10:41)
[2018-07-29 10:42] LABS: BASOPHIL % 0.7 % (0.0-0.4); Basophil (Absolute #) 0.05 (0-0.4); Eosinophil % 3.9 % (0.00-5.0); Eosinophil (Absolute #) 0.26 (0-0.5); Granulocytes % 54.1 % (36.0-66.0); Hematocrit 39.8 % (35-47); Hemoglobin 13.1 gm/dl (12.0-16.0); Lymphocyte (Absolute #) 2.29 (1.0-4.6); Lymphocytes % 34.3 % (24.0-44.0); Mean Cell Volume 86.3 fl (78-100); Mean Corpuscular Hemoglobin 28.4 pg (26-32); Mean Corpuscular Hgb Concent. 32.9 g/dl (32-36); Mean Platelet Volume 9.6 fl (6-9.5); Monocyte (Absolute #) 0.47 (0.0-1.3); Platelet Count 302 K/mm3 (150-450); Red Blood Count 4.61 M/mm3 (4.1-5.4); Red Cell Distribution Width 12.5 % (11.5-14.0); White Blood Count 6.7 K/mm3 (4.0-10.5)
[2018-07-29 10:49] LABS: Appearance CLOUDY (CLEAR); Bacteria FEW /HPF (NEGATIVE); Bilirubin NEGATIVE (NEGATIVE); Blood LARGE Ery/ul (0-5); Epithelial Cells RARE /HPF (FEW); Glucose NEGATIVE (NEGATIVE); Ketones NEGATIVE (NEGATIVE); Leukocyte Esterase NEGATIVE (NEGATIVE); Nitrite NEGATIVE (NEGATIVE); Protein,Urine Dip 30 (Negative); RBC >101 /HPF (0-2); Specific Gravity 1.019 (1.005-1.025); Urobilinogen NEGATIVE mg/dL (0-1); WBC 0-2 /HPF (0-5)
[2018-07-29 10:53] LABS: ALBUMIN 4.1 g/dL (3.5-5.0); ALKALINE PHOSPHATASE 79 U/L (38-126); ANION GAP 14.4 MEQ/L (5-15); BLOOD UREA NITROGEN 13 mg/dL (7-17); CHLORIDE 105 mmol/L (98-107); Calcium 9.1 mg/dL (8.4-10.2); Carbon Dioxide 25 mmol/L (22-30); Glucose 98 mg/dL (74-106); LIPASE 53 U/L (23-300); Potassium 4.2 mmol/L (3.5-5.1); SGOT/AST 24 U/L (14-36); SGPT/ALT 30 U/L (0-35); SODIUM 140 mmol/L (137-145); Total Protein 7.2 g/dL (6.3-8.2)
--- NOTE | 2018-07-29 11:36 | XRAY ---
Indication: Abdomen pain, nausea, vomiting, and diarrhea. Multiple contiguous axial images obtained through the abdomen and pelvis without contrast as ordered. Comparison: February 10, 2018 and July 18, 2018. Lung bases remain clear. Heart is not enlarged. Noncontrasted stomach and bowel loops remain nonobstructed with normal appearing appendix and mild scattered colonic diverticulosis. Stable cholecystectomy. Again tiny cul-de-sac fluid probably from rupture/leaking cyst. No free air. Remaining liver, pancreas, spleen, adrenal glands, kidneys, ureters, bladder, uterus, and aorta appear unremarkable for noncontrast exam. Osseous structures intact. Impression: 1. Again tiny cul-de-sac fluid presumed physiologic from rupture/leaking cyst. 2. Stable diverticulosis without diverticulitis. 3. Remaining CT abdomen/pelvis without contrast exam is again negative. CT DI 23.68
[2018-07-29 11:55] VITALS: BP 120/68; PULSE 65; O2SAT 99
== END 2018-07-29 12:05 | disposition home or self-care (01) ==
LOC: ED 10:09
DX: N30.01 Acute cystitis with hematuria (principal)
CPT/HCPCS: 36000; 36415; 74176; 80053; 81001; 83690; 84703; 85025; 87086; 96360; 96374; 96375; 99284; J1885; J2405

== ENCOUNTER 2018-08-28 23:05 | Emergency (ER) | payer OTHER ==
--- NOTE | 2018-08-28 23:28 | ERPHSYRPT ---
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 not better despite ice. Occurred: just prior to arrival, hours ago (1) Reason for Fall: fell from standing pos Injuries/Pain Location: upper extremity (right hand) Loss of Consciousness: no loss of consciousness Quality: aching Severity of Pain-Max: mild Severity of Pain-Current: mild Modifying Factors: Improves With: movement Associated Symptoms (Fall): extremity injury (right hand) Allergies/Adverse Reactions: No Known Drug Allergies Allergy (Verified 08/28/18 23:28) Hx Tetanus, Diphtheria Vaccination/Date Given: No Hx Influenza Vaccination/Date Given: Yes Hx Pneumococcal Vaccination/Date Given: No - Review of Systems Constitutional: No Symptoms Eyes: No Symptoms Ears, Nose, & Throat: No Symptoms Respiratory: No Symptoms Cardiac: No Symptoms Abdominal/Gastrointestinal: No Symptoms Genitourinary Symptoms: No Symptoms Musculoskeletal: Fall, Injury (right hand) Skin: No Symptoms Neurological: No Symptoms Psychological: No Symptoms Endocrine: No Symptoms Hematologic/Lymphatic: No Symptoms Immunological/Allergic: No Symptoms All Other Systems: Reviewed and Negative - Past Medical History Pertinent Past Medical History: Yes Neurological History: No Pertinent History ENT History: No Pertinent History Cardiac History: No Pertinent History Respiratory History: No Pertinent History Endocrine Medical History: No Pertinent History Musculoskeletal History: No Pertinent History GI Medical History: No Pertinent History History: No Pertinent History Psycho-Social History: No Pertinent History Female Reproductive Disorders: No Pertinent History Other Medical History: PCOS-hormone imbalance - Past Surgical History Past Surgical History: Yes Neuro Surgical History: No Pertinent History Cardiac: No Pertinent History Respiratory: No Pertinent History Gastrointestinal: Cholecystectomy Genitourinary: No Pertinent History Musculoskeletal: Other Female Surgical History: No Pertinent History Other Surgical History: tendon release lt wrist. toenail removed. tendon released,egd - Social History Smoking Status: Never smoker How long have you smoked: 1yr Exposure to second hand smoke: No Drug Use: none Patient Lives Alone: No - Nursing Vital Signs Nursing Vital Signs: Initial Vital Signs Temperature 99.5 F 08/28/18 23:28 Pulse Rate 89 08/28/18 23:28 Respiratory Rate 18 08/28/18 23:28 Blood Pressure 135/78 08/28/18 23:28 O2 Sat by Pulse Oximetry 97 08/28/18 23:28 Pain Scale Pain Intensity 10 - [place] Coma Score Best Eye Response (Josemanuel): (4) open spontaneously Best Verbal Response ([place]): (5) oriented Best Motor Response ([place]): (6) obeys commands Josemanuel Total: 15 - Physical Exam General Appearance: no apparent distress, alert, anxiety Head Injury: no evidence of injury, No Pretty's Sign, No contusions, No lacerations, No swelling, No tenderness Eye Exam: PERRL/EOMI, eyes nml inspection ENT Exam: airway nml, nml ext.inspection Neck Exam: supple, trachea midline, full range of motion, normal alignment Respiratory/Chest Exam: No chest tenderness Gastrointestinal Exam: No tenderness Rectal Exam: not done Extremity Exam: normal inspection, normal range of motion, tenderness (soft tissue dorsal aspect right hand) Neurologic Exam: alert, oriented x 3, cooperative, claims adjuster II-XII nml as tested, normal mood/affect, nml cerebellar function, nml station & gait Skin Exam: normal color, warm, dry SpO2 Interpretation: normal O2 Delivery: Room Air Ordered Tests: Active Orders 24 hr Category Date Time Status HAND (MINIMUM 3 VIEWS) Stat Exams 08/28/18 23:38 Ordered - Progress Progress: improved, pain not gone completely, re-examined Progress Note: 08/29/18 00:01 xray right hand-no acute fx or dislocation Counseled pt/family regarding: diagnosis, need for follow-up, rad results - Departure Departure Disposition: Home Clinical Impression: Hand contusion Condition: Stable Critical Care Time: No Referrals: SKYLAR PARSON [Primary Care Provider] - Additional Instructions: tylenol and ibuprofen for pain. ice pack to area 3 times daily for 2 days. follow up with primary doctor for persistent pain.
[2018-08-28 23:37] VITALS: BP 135/78; PULSE 89; O2SAT 97
--- NOTE | 2018-08-29 08:46 | XRAY ---
Indication: Pain/swelling following fall. Comparison: May 28, 2017. 3 views of the right hand obtained. Again no bony, articular, or soft tissue abnormalities.
== END 2018-08-29 00:21 | disposition home or self-care (01) ==
LOC: ED 23:05
DX: S60.221A Contusion of right hand, initial encounter (principal); W19.XXXA Unspecified fall, initial encounter; Y92.9 Unspecified place or not applicable
CPT/HCPCS: 73130; 99283

== ENCOUNTER 2018-11-03 22:57 | Emergency (ER) | payer MEDICAID, OTHER | END 2018-11-04 02:00 | disposition home or self-care (01) | LOC: ED 22:57 ==

== ENCOUNTER 2018-11-06 21:30 | Emergency (ER) | payer MEDICAID ==
[2018-11-06] MEDS ORDERED: Pepcid 20 MG VIAL IV ONE ×2 (21:52→22:31)
[2018-11-06] MEDS ORDERED: Zofran 4 MG/2 ML VIAL IV ONE (21:52)
[2018-11-06] MEDS ORDERED: Sodium Chloride 0.9% 1000 ML 1,000 ML IV STA (21:52)
--- NOTE | 2018-11-06 22:01 | ERPHSYRPT ---
- History of Present Illness Time Seen by Provider: 11/06/18 21:45 Historian: patient Exam Limitations: no limitations Patient Subjective Stated Complaint: pt states she had suddenl onset pain in lt upper abd and vomited 1 time. states she has had intermittent lt side abd pain for 1 yr. Triage Nursing Assessment: pt alert and oreinted, answers questions approp. pt ambulatoryw ith steady gait noted. respirations nonlabored with lungs cta. skin pinkw arm and dry. abd soft and non tender to light palpation. bowel sounds present x4 quads. no emesis at this time. Physician History: Pt was seen here with abdominal pain 3 days ago, diagnosed with UTI, given prescription for antibiotic, but she did not fill it, because of lack of resources. She started she started c/o more severe pain in her LUQ, vomited several times and developed SOB today after vomiting. She denies fever, chills, not vomiting blood or coffee ground material, no urinary complaints, but had some diarrhea. She had similar abdominal pain and vomiting several times over the past one year. Timing/Duration: day(s) (5) Activities at Onset: none Quality: cramping, sharpness Abdominal Pain Onset Location: LUQ Pain Radiation: back Severity of Pain-Max: severe Severity of Pain-Current: severe Modifying Factors: Improves With: nothing Associated Symptoms: diarrhea, nausea, shortness of breath, vomiting Previous symptoms: same symptoms as today Allergies/Adverse Reactions: morphine Adverse Reaction (Mild, Verified 11/06/18 21:44) Vomiting Home Medications: No Reportable Medications [No Reported Medications] 11/06/18 [History] Hx Tetanus, Diphtheria Vaccination/Date Given: Yes Hx Influenza Vaccination/Date Given: Yes Hx Pneumococcal Vaccination/Date Given: No Immunizations Up to Date: Yes - Review of Systems Constitutional: No Symptoms Ears, Nose, & Throat: No Symptoms Respiratory: Dyspnea Cardiac: No Symptoms Abdominal/Gastrointestinal: Abdominal Pain, Nausea, Vomiting, Diarrhea Musculoskeletal: No Symptoms Skin: No Symptoms Neurological: No Symptoms All Other Systems: Reviewed and Negative - Past Medical History Pertinent Past Medical History: Yes Neurological History: No Pertinent History ENT History: No Pertinent History Cardiac History: No Pertinent History Respiratory History: No Pertinent History Endocrine Medical History: No Pertinent History Musculoskeletal History: No Pertinent History GI Medical History: No Pertinent History History: No Pertinent History Psycho-Social History: No Pertinent History Female Reproductive Disorders: No Pertinent History Other Medical History: PCOS-hormone imbalance - Past Surgical History Past Surgical History: Yes Neuro Surgical History: No Pertinent History Cardiac: No Pertinent History Respiratory: No Pertinent History Gastrointestinal: Cholecystectomy Genitourinary: No Pertinent History Musculoskeletal: Other Female Surgical History: No Pertinent History Other Surgical History: tendon release lt wrist. toenail removed. tendon released,egd - Social History Smoking Status: Never smoker How long have you smoked: 1yr Exposure to second hand smoke: Yes Drug Use: none Patient Lives Alone: No - Female History Hx Last Menstrual Period: oct 20, 2018 Hx Now: No - Nursing Vital Signs Nursing Vital Signs: Initial Vital Signs Temperature 98.1 F 11/06/18 21:35 Pulse Rate 63 11/06/18 21:35 Respiratory Rate 16 11/06/18 21:35 Blood Pressure 123/79 11/06/18 21:35 O2 Sat by Pulse Oximetry 99 11/06/18 21:35 Pain Scale Pain Intensity 10 - Physical Exam General Appearance: no apparent distress Eye Exam: eyes nml inspection Ears, Nose, Throat Exam: normal ENT inspection, moist mucous membranes Neck Exam: normal inspection, non-tender, supple, No JVD Respiratory Exam: normal breath sounds, lungs clear, airway intact, No chest tenderness, No respiratory distress Cardiovascular Exam: regular rate/rhythm, normal heart sounds, normal peripheral pulses, No murmur Gastrointestinal/Abdomen Exam: soft, normal bowel sounds, tenderness (LUQ. mod. severe), No distention, No mass, No guarding, No ecchymosis, No rebound, No organomegaly Back Exam: normal inspection, CVA tenderness (left), No vertebral tenderness Extremity Exam: normal inspection, No calf tenderness, No karson's sign, No pedal edema Neurologic Exam: alert, oriented x 3 Skin Exam: normal color, warm, dry, No rash, No petechiae, No cyanosis, No diaphoresis Lymphatic Exam: No adenopathy SpO2 Interpretation: normal SpO2: 99 O2 Delivery: Room Air - Course Nursing assessment & vital signs reviewed: Yes EKG Interpreted by Me: RATE (48/min), Sinus Devan, NORMAL AXIS, NORMAL QRS, Non- specific ST Changes - CT Exams Abdomen/Pelvis CT Interpretation: Tele-radiologist Report, Other (pyelonephritis, L4-5 and L5- S1 canal stenosis, and disc protrusions.) Ordered Tests: Active Orders 24 hr Category Date Time Status EKG-ER Only STAT Care 11/06/18 21:52 Active IV Insertion STAT Care 11/06/18 21:52 Active ABDOMEN AND PELVIS W/0 CONTRAS [CT] Stat Exams 11/06/18 23:18 Taken CBC W DIFF Stat Lab 11/06/18 22:34 Completed CMP Stat Lab 11/06/18 22:34 Completed CULTURE,URINE Stat Lab 11/06/18 22:34 Received D-DIMER QUANTITATION Stat Lab 11/06/18 22:52 Completed HCG,QUALITATIVE URINE Stat Lab 11/06/18 22:34 Completed LIPASE Stat Lab 11/06/18 22:34 Completed Lactic Acid Stat Lab 11/06/18 22:24 Completed NT PRO BNP Stat Lab 11/06/18 22:52 Completed PROTIME WITH INR Stat Lab 11/06/18 22:34 Completed TROPONIN Q3H Lab 11/06/18 22:34 Completed TROPONIN Q3H Lab 11/07/18 01:00 Ordered TROPONIN Q3H Lab 11/07/18 04:00 Ordered TROPONIN Q3H Lab 11/07/18 07:00 Ordered TROPONIN Q3H Lab 11/07/18 10:00 Ordered UA W/RFX UR CULTURE Stat Lab 11/06/18 22:34 Completed Urine Triage Profile Stat Lab 11/06/18 22:34 Completed Medication Summary Generic Name Dose Route Start Last Admin Trade Name Freq PRN Reason Stop Dose Admin Ceftriaxone Sodium/Dextrose 1 g in 50 mls @ 100 mls/hr 11/07/18 01:04 Rocephin 1 Gm-D5w 50 Ml Bag IV 11/07/18 01:33 STAT STA Discontinued Medications Generic Name Dose Route Start Last Admin Trade Name Freq PRN Reason Stop Dose Admin Famotidine 20 mg 11/06/18 21:52 11/06/18 22:39 Pepcid 20 Mg Vial IV 11/06/18 21:53 20 mg STAT ONE Administration Famotidine Confirm 11/06/18 22:31 Pepcid 20 Mg Vial Administered 11/06/18 22:32 Dose 20 mg IV .STK-MED ONE Sodium Chloride 1,000 mls @ 999 mls/hr 11/06/18 21:52 11/06/18 22:38 Sodium Chloride 0.9% 1000 Ml IV 11/06/18 22:52 999 mls/hr .Q1H1M STA Administration Sodium Chloride Confirm 11/06/18 22:31 Sodium Chloride 0.9% 1000 Ml Administered 11/06/18 22:32 Dose 1,000 mls @ ud .ROUTE .STK-MED ONE Ondansetron HCl 4 mg 11/06/18 21:52 11/06/18 22:39 Zofran 4 Mg/2 Ml Vial IV 11/06/18 21:53 4 mg STAT ONE Administration Ondansetron HCl Confirm 11/06/18 22:30 Zofran 4 Mg/2 Ml Vial Administered 11/06/18 22:31 Dose 4 mg .ROUTE .STK-MED ONE Lab/Rad Data: Laboratory Result Diagrams 11/06/18 22:34 11/06/18 22:34 Laboratory Results 11/06/18 11/06/18 11/06/18 Range/Units 22:52 22:52 22:34 WBC (4.0-10.5) K/mm3 RBC (4.1-5.4) M/mm3 Hgb (12.0-16.0) gm/dl Hct (35-47) % MCV (78-100) fl MCH (26-32) pg MCHC (32-36) g/dl RDW (11.5-14.0) % Plt Count (150-450) K/mm3 MPV (6-9.5) fl Gran % (36.0-66.0) % Eos # (Auto) (0-0.5) Absolute Lymphs (auto) (1.0-4.6) Absolute Monos (auto) (0.0-1.3) Lymphocytes % (24.0-44.0) % Monocytes % (0.0-12.0) % Eosinophils % (0.00-5.0) % Basophils % (0.0-0.4) % Absolute Granulocytes (1.4-6.9) Basophils # (0-0.4) PT (9.95-12.35) SECONDS INR (0.8-3.0) D-Dimer < 215 L (215-500) ng/mL Sodium (137-145) mmol/L Potassium (3.5-5.1) mmol/L Chloride (98-107) mmol/L Carbon Dioxide (22-30) mmol/L Anion Gap (5-15) MEQ/L BUN (7-17) mg/dL Creatinine (0.52-1.04) mg/dL Estimated GFR ML/MIN Glucose (74-106) mg/dL Lactic Acid (0.4-2.0) Calcium (8.4-10.2) mg/dL Total Bilirubin (0.2-1.3) mg/dL AST (14-36) U/L ALT (0-35) U/L Alkaline Phosphatase (38-126) U/L Troponin I (0.000-0.034) ng/mL NT-Pro-B Natriuret Pep 64.1 (0-450) pg/mL Serum Total Protein (6.3-8.2) g/dL Albumin (3.5-5.0) g/dL Lipase (23-300) U/L Urine Color (YELLOW) Urine Appearance (CLEAR) Urine pH (5-6) Ur Specific Dexter (1.005-1.025) Urine Protein (Negative) Urine Ketones (NEGATIVE) Urine Blood (0-5) Fabio/ul Urine Nitrite (NEGATIVE) Urine Bilirubin (NEGATIVE) Urine Urobilinogen (0-1) mg/dL Ur Leukocyte Esterase (NEGATIVE) Urine WBC (Auto) (0-5) /HPF Urine RBC (Auto) (0-2) /HPF U Epithel Cells (Auto) (FEW) /HPF Urine Bacteria (Auto) (NEGATIVE) /HPF Amorphous Crystals (NEGATIVE) /HPF Urine Mucus (Auto) (NEGATIVE) /HPF Urine Culture Reflexed (NO) Urine Glucose (NEGATIVE) mg/dL Urine HCG, Qual NEGATIVE (Negative) Urine Opiates Level (NEGATIVE) Ur Methadone (NEGATIVE) Urine Barbiturates (NEGATIVE) Ur Phencyclidine (PCP) (NEGATIVE) Urine Amphetamine (NEGATIVE) U Benzodiazepine Level (NEGATIVE) Urine Cocaine (NEGATIVE) Urine Marijuana (THC) (NEGATIVE) 11/06/18 11/06/18 11/06/18 Range/Units 22:34 22:34 22:34 WBC (4.0-10.5) K/mm3 RBC (4.1-5.4) M/mm3 Hgb (12.0-16.0) gm/dl Hct (35-47) % MCV (78-100) fl MCH (26-32) pg MCHC (32-36) g/dl RDW (11.5-14.0) % Plt Count (150-450) K/mm3 MPV (6-9.5) fl Gran % (36.0-66.0) % Eos # (Auto) (0-0.5) Absolute Lymphs (auto) (1.0-4.6) Absolute Monos (auto) (0.0-1.3) Lymphocytes % (24.0-44.0) % Monocytes % (0.0-12.0) % Eosinophils % (0.00-5.0) % Basophils % (0.0-0.4) % Absolute Granulocytes (1.4-6.9) Basophils # (0-0.4) PT (9.95-12.35) SECONDS INR (0.8-3.0) D-Dimer (215-500) ng/mL Sodium (137-145) mmol/L Potassium (3.5-5.1) mmol/L Chloride (98-107) mmol/L Carbon Dioxide (22-30) mmol/L Anion Gap (5-15) MEQ/L BUN (7-17) mg/dL Creatinine (0.52-1.04) mg/dL Estimated GFR ML/MIN Glucose (74-106) mg/dL Lactic Acid (0.4-2.0) Calcium (8.4-10.2) mg/dL Total Bilirubin (0.2-1.3) mg/dL AST (14-36) U/L ALT (0-35) U/L Alkaline Phosphatase (38-126) U/L Troponin I < 0.012 (0.000-0.034) ng/mL NT-Pro-B Natriuret Pep (0-450) pg/mL Serum Total Protein (6.3-8.2) g/dL Albumin (3.5-5.0) g/dL Lipase (23-300) U/L Urine Color VICKY (YELLOW) Urine Appearance CLOUDY (CLEAR) Urine pH 5.0 (5-6) Ur Specific Dexter 1.033 (1.005-1.025) Urine Protein 30 (Negative) Urine Ketones TRACE (NEGATIVE) Urine Blood NEGATIVE (0-5) Fabio/ul Urine Nitrite NEGATIVE (NEGATIVE) Urine Bilirubin NEGATIVE (NEGATIVE) Urine Urobilinogen 2 (0-1) mg/dL Ur Leukocyte Esterase TRACE (NEGATIVE) Urine WBC (Auto) 6-10 (0-5) /HPF Urine RBC (Auto) 3-5 (0-2) /HPF U Epithel Cells (Auto) MODERATE (FEW) /HPF Urine Bacteria (Auto) RARE (NEGATIVE) /HPF Amorphous Crystals FEW (NEGATIVE) /HPF Urine Mucus (Auto) MODERATE (NEGATIVE) /HPF Urine Culture Reflexed YES (NO) Urine Glucose NEGATIVE (NEGATIVE) mg/dL Urine HCG, Qual (Negative) Urine Opiates Level NEGATIVE (NEGATIVE) Ur Methadone NEGATIVE (NEGATIVE) Urine Barbiturates NEGATIVE (NEGATIVE) Ur Phencyclidine (PCP) NEGATIVE (NEGATIVE) Urine Amphetamine NEGATIVE (NEGATIVE) U Benzodiazepine Level NEGATIVE (NEGATIVE) Urine Cocaine NEGATIVE (NEGATIVE) Urine Marijuana (THC) NEGATIVE (NEGATIVE) 11/06/18 11/06/18 11/06/18 Range/Units 22:34 22:34 22:34 WBC 8.6 (4.0-10.5) K/mm3 RBC 4.64 (4.1-5.4) M/mm3 Hgb 13.2 (12.0-16.0) gm/dl Hct 39.2 (35-47) % MCV 84.5 (78-100) fl MCH 28.4 (26-32) pg MCHC 33.7 (32-36) g/dl RDW 12.7 (11.5-14.0) % Plt Count 282 (150-450) K/mm3 MPV 10.9 H (6-9.5) fl Gran % 54.6 (36.0-66.0) % Eos # (Auto) 0.32 (0-0.5) Absolute Lymphs (auto) 2.98 (1.0-4.6) Absolute Monos (auto) 0.58 (0.0-1.3) Lymphocytes % 34.7 (24.0-44.0) % Monocytes % 6.7 (0.0-12.0) % Eosinophils % 3.7 (0.00-5.0) % Basophils % 0.3 (0.0-0.4) % Absolute Granulocytes 4.69 (1.4-6.9) Basophils # 0.03 (0-0.4) PT 12.1 (9.95-12.35) SECONDS INR 1.07 (0.8-3.0) D-Dimer (215-500) ng/mL Sodium 142 (137-145) mmol/L Potassium 3.8 (3.5-5.1) mmol/L Chloride 108 H (98-107) mmol/L Carbon Dioxide 24 (22-30) mmol/L Anion Gap 13.3 (5-15) MEQ/L BUN 16 (7-17) mg/dL Creatinine 1.10 H (0.52-1.04) mg/dL Estimated GFR > 60.0 ML/MIN Glucose 90 (74-106) mg/dL Lactic Acid (0.4-2.0) Calcium 9.6 (8.4-10.2) mg/dL Total Bilirubin 0.40 (0.2-1.3) mg/dL AST 29 (14-36) U/L ALT 35 (0-35) U/L Alkaline Phosphatase 66 (38-126) U/L Troponin I (0.000-0.034) ng/mL NT-Pro-B Natriuret Pep (0-450) pg/mL Serum Total Protein 7.6 (6.3-8.2) g/dL Albumin 4.5 (3.5-5.0) g/dL Lipase 154 (23-300) U/L Urine Color (YELLOW) Urine Appearance (CLEAR) Urine pH (5-6) Ur Specific Dexter (1.005-1.025) Urine Protein (Negative) Urine Ketones (NEGATIVE) Urine Blood (0-5) Fabio/ul Urine Nitrite (NEGATIVE) Urine Bilirubin (NEGATIVE) Urine Urobilinogen (0-1) mg/dL Ur Leukocyte Esterase (NEGATIVE) Urine WBC (Auto) (0-5) /HPF Urine RBC (Auto) (0-2) /HPF U Epithel Cells (Auto) (FEW) /HPF Urine Bacteria (Auto) (NEGATIVE) /HPF Amorphous Crystals (NEGATIVE) /HPF Urine Mucus (Auto) (NEGATIVE) /HPF Urine Culture Reflexed (NO) Urine Glucose (NEGATIVE) mg/dL Urine HCG, Qual (Negative) Urine Opiates Level (NEGATIVE) Ur Methadone (NEGATIVE) Urine Barbiturates (NEGATIVE) Ur Phencyclidine (PCP) (NEGATIVE) Urine Amphetamine (NEGATIVE) U Benzodiazepine Level (NEGATIVE) Urine Cocaine (NEGATIVE) Urine Marijuana (THC) (NEGATIVE) 11/06/18 Range/Units 22:24 WBC (4.0-10.5) K/mm3 RBC (4.1-5.4) M/mm3 Hgb (12.0-16.0) gm/dl Hct (35-47) % MCV (78-100) fl MCH (26-32) pg MCHC (32-36) g/dl RDW (11.5-14.0) % Plt Count (150-450) K/mm3 MPV (6-9.5) fl Gran % (36.0-66.0) % Eos # (Auto) (0-0.5) Absolute Lymphs (auto) (1.0-4.6) Absolute Monos (auto) (0.0-1.3) Lymphocytes % (24.0-44.0) % Monocytes % (0.0-12.0) % Eosinophils % (0.00-5.0) % Basophils % (0.0-0.4) % Absolute Granulocytes (1.4-6.9) Basophils # (0-0.4) PT (9.95-12.35) SECONDS INR (0.8-3.0) D-Dimer (215-500) ng/mL Sodium (137-145) mmol/L Potassium (3.5-5.1) mmol/L Chloride (98-107) mmol/L Carbon Dioxide (22-30) mmol/L Anion Gap (5-15) MEQ/L BUN (7-17) mg/dL Creatinine (0.52-1.04) mg/dL Estimated GFR ML/MIN Glucose (74-106) mg/dL Lactic Acid 0.9 (0.4-2.0) Calcium (8.4-10.2) mg/dL Total Bilirubin (0.2-1.3) mg/dL AST (14-36) U/L ALT (0-35) U/L Alkaline Phosphatase (38-126) U/L Troponin I (0.000-0.034) ng/mL NT-Pro-B Natriuret Pep (0-450) pg/mL Serum Total Protein (6.3-8.2) g/dL Albumin (3.5-5.0) g/dL Lipase (23-300) U/L Urine Color (YELLOW) Urine Appearance (CLEAR) Urine pH (5-6) Ur Specific Dexter (1.005-1.025) Urine Protein (Negative) Urine Ketones (NEGATIVE) Urine Blood (0-5) Fabio/ul Urine Nitrite (NEGATIVE) Urine Bilirubin (NEGATIVE) Urine Urobilinogen (0-1) mg/dL Ur Leukocyte Esterase (NEGATIVE) Urine WBC (Auto) (0-5) /HPF Urine RBC (Auto) (0-2) /HPF U Epithel Cells (Auto) (FEW) /HPF Urine Bacteria (Auto) (NEGATIVE) /HPF Amorphous Crystals (NEGATIVE) /HPF Urine Mucus (Auto) (NEGATIVE) /HPF Urine Culture Reflexed (NO) Urine Glucose (NEGATIVE) mg/dL Urine HCG, Qual (Negative) Urine Opiates Level (NEGATIVE) Ur Methadone (NEGATIVE) Urine Barbiturates (NEGATIVE) Ur Phencyclidine (PCP) (NEGATIVE) Urine Amphetamine (NEGATIVE) U Benzodiazepine Level (NEGATIVE) Urine Cocaine (NEGATIVE) Urine Marijuana (THC) (NEGATIVE) - Progress Progress: improved Progress Note: 11/07/18 01:11 Pt states, she feels better, did not vomit, no fever, or severe pain, reviewed her CT and lab results, discussed, she was given IV saline bolus and Zofran, also 1 g Rocephin IV, and dsharged home, encouraged to start her antibiotic today, follow up with her physician in 2-3 days. Counseled pt/family regarding: lab results, diagnosis, need for follow-up, rad results - Departure Departure Disposition: Home Clinical Impression: Pyelonephritis Condition: Stable Critical Care Time: No Referrals: SKYLAR PARSON [Primary Care Provider] - Instructions: Urinary Tract Infection, Adult (DC) Additional Instructions: Rest x 2-3 days, drink plenty of fluids, and follow up with your physician start taking antibiotics as directed today also Zofran ODT as needed, follow up with your physician in 2-3 days and return if severe pain, vomiting, fever> 102 F!
[2018-11-06] MEDS ORDERED: Zofran 4 MG/2 ML VIAL ONE (22:30)
[2018-11-06] MEDS ORDERED: Sodium Chloride 0.9% 1000 ML 1,000 ML ONE (22:31)
[2018-11-06 22:39] LABS: BASOPHIL % 0.3 % (0.0-0.4); Basophil (Absolute #) 0.03 (0-0.4); Eosinophil % 3.7 % (0.00-5.0); Eosinophil (Absolute #) 0.32 (0-0.5); Granulocyte Absolute (ANC) 4.69 (1.4-6.9); Granulocytes % 54.6 % (36.0-66.0); Hematocrit 39.2 % (35-47); Hemoglobin 13.2 gm/dl (12.0-16.0); Lymphocyte (Absolute #) 2.98 (1.0-4.6); Lymphocytes % 34.7 % (24.0-44.0); Mean Cell Volume 84.5 fl (78-100); Mean Corpuscular Hemoglobin 28.4 pg (26-32); Mean Corpuscular Hgb Concent. 33.7 g/dl (32-36); Mean Platelet Volume 10.9 fl (6-9.5); Monocyte (Absolute #) 0.58 (0.0-1.3); Monocytes % 6.7 % (0.0-12.0); Platelet Count 282 K/mm3 (150-450); Red Blood Count 4.64 M/mm3 (4.1-5.4); Red Cell Distribution Width 12.7 % (11.5-14.0); White Blood Count 8.6 K/mm3 (4.0-10.5)
[2018-11-06 22:45] LABS: INR 1.07 (0.8-3.0); PROTIME 12.1 SECONDS (9.95-12.35)
[2018-11-06 22:47] LABS: Amourphous Crystal FEW /HPF (NEGATIVE); Appearance CLOUDY (CLEAR); Bacteria RARE /HPF (NEGATIVE); Bilirubin NEGATIVE (NEGATIVE); Blood NEGATIVE Ery/ul (0-5); Epithelial Cells MODERATE /HPF (FEW); Glucose NEGATIVE (NEGATIVE); Ketones TRACE (NEGATIVE); Leukocyte Esterase TRACE (NEGATIVE); Mucus MODERATE /HPF (NEGATIVE); Nitrite NEGATIVE (NEGATIVE); Protein,Urine Dip 30 (Negative); Specific Gravity 1.033 (1.005-1.025); Urobilinogen 2 mg/dL (0-1)
[2018-11-06 22:49] LABS: ALBUMIN 4.5 g/dL (3.5-5.0); ALKALINE PHOSPHATASE 66 U/L (38-126); ANION GAP 13.3 MEQ/L (5-15); BLOOD UREA NITROGEN 16 mg/dL (7-17); CHLORIDE 108 mmol/L (98-107); Calcium 9.6 mg/dL (8.4-10.2); Carbon Dioxide 24 mmol/L (22-30); Glucose 90 mg/dL (74-106); LIPASE 154 U/L (23-300); Potassium 3.8 mmol/L (3.5-5.1); SGOT/AST 29 U/L (14-36); SGPT/ALT 35 U/L (0-35); SODIUM 142 mmol/L (137-145); Total Protein 7.6 g/dL (6.3-8.2)
[2018-11-06 22:59] LABS: Amphetamine,Urine NEGATIVE (NEGATIVE); Barbiturate,Urine NEGATIVE (NEGATIVE); Benzodiazepine,Urine NEGATIVE (NEGATIVE); Cocaine,Urine NEGATIVE (NEGATIVE); Methadone,Urine NEGATIVE (NEGATIVE); Opiate,Urine NEGATIVE (NEGATIVE); PCP,Urine NEGATIVE (NEGATIVE); THC,Urine NEGATIVE (NEGATIVE)
[2018-11-07] MEDS ORDERED: ROCEPHIN 1 Gm-D5w 50 ml Bag** 1 G/50 ML IVPB IV STA (01:04)
[2018-11-07] MEDS ORDERED: ROCEPHIN 1 Gm-D5w 50 ml Bag** 1 G/50 ML IVPB IV ONE (01:09)
[2018-11-07 01:17] VITALS: BP 131/84; PULSE 64; O2SAT 100
--- NOTE | 2018-11-07 07:04 | XRAY ---
Indication: Left upper quadrant pain with nausea, vomiting, and diarrhea. Multiple contiguous axial images obtained through the abdomen and pelvis without contrast as ordered. Comparison: July 29, 2018. Lung bases again clear. Heart is not enlarged. Stomach is distended with food/fluid. Noncontrasted stomach and bowel loops appear nonobstructed. Normal appendix. There is now mild scattered colonic fecal debris greatest in the ascending and transverse colon. Again tiny cul-de-sac fluid presumed physiologic and previous cholecystectomy. No walled off fluid collection or free air. Remaining liver, pancreas, spleen, adrenal glands, kidneys, ureters, bladder, uterus, and aorta appear unremarkable for noncontrast exam. Osseous structures intact. No ventral or inguinal hernias. Impression: 1. Tiny cul-de-sac fluid presumed physiologic.. 2. Mild fecal stasis without obstruction. 3. Remaining CT abdomen/pelvis without contrast is negative. Comment: Preliminary interpretation was made by C. No critical discrepancy. CTDI 23.68
== END 2018-11-07 01:40 | disposition home or self-care (01) ==
LOC: ED 21:30
DX: N12 Tubulo-interstitial nephritis, not specified as acute or chronic (principal)
CPT/HCPCS: 36000; 36415; 74176; 80053; 80307; 81001; 83605; 83690; 83880; 84484; 84703; 85025; 85379; 85610; 87086; 93005; 96360; 96365; 96374; 96375; 99284; J0696; J2405

== ENCOUNTER 2019-09-19 21:09 | Emergency (ER) | payer BC ==
[2019-09-19] MEDS ORDERED: TORAdol 30 mg Injection IM ONE (22:10)
[2019-09-19] MEDS ORDERED: TORAdol 30 mg Injection ONE (22:11)
--- NOTE | 2019-09-19 22:29 | ERPHSYRPT ---
- History of Present Illness Time Seen by Provider: 09/19/19 21:24 Historian: patient Exam Limitations: no limitations Patient Subjective Stated Complaint: pt states that she woke up from a nap, pt states that she felt a pop in her chest, after pt states that she is unable to catch her breath, pt states that she fells like she is drowning Triage Nursing Assessment: pt ambulated into the er, pt is axo x3, pt c/o pain to sternum, pt states 10/10 pain, c/o SOB, rt posterior lobe wheezing, vitals wnl Physician History: 19 years old female presented in the ER with chief complaint of sternal pain started prior to arrival while she was watching TV and felt a popping in her sternum. She described this is as dull to sharp pain, moderate intensity, aggravated with movements of the chest, palpation and is having some difficulty breathing as well , better with being still. Denies any palpitations. No cough fever or chills reported. Denies any lower extremity swelling, long travel or history of blood clots. Timing/Duration: hour(s), sudden, worse Activities at Onset: rest Quality: dullness, sharpness Location: central Chest Pain Radiation: no radiation Severity of Pain-Max: moderate Severity of Pain-Current: moderate Modifying Factors: Improves With: breathing, movement, palpation Associated Symptoms: shortness of breath Prior Chest Pain/Cardiac Workup: no prior chest pain Nitro Today/Relief: no nitro taken today Aspirin Treatment Today: no aspirin today Allergies/Adverse Reactions: morphine Adverse Reaction (Mild, Verified 09/19/19 21:15) Vomiting Hx Tetanus, Diphtheria Vaccination/Date Given: Yes Hx Influenza Vaccination/Date Given: No Hx Pneumococcal Vaccination/Date Given: No Immunizations Up to Date: Yes Travel Risk - International Travel Have you traveled outside of the country in past 3 weeks: No - Coronavirus Screening Are you exhibiting any of the following symptoms?: Yes Close contact with a COVID-19 positive Pt in past 14-21 Days: No - Review of Systems Constitutional: No Symptoms Eyes: No Symptoms Ears, Nose, & Throat: No Symptoms Respiratory: No Symptoms Cardiac: Chest Pain Abdominal/Gastrointestinal: No Symptoms Genitourinary Symptoms: No Symptoms Musculoskeletal: No Symptoms Skin: No Symptoms Neurological: No Symptoms Psychological: Anxiety Endocrine: No Symptoms Hematologic/Lymphatic: No Symptoms Immunological/Allergic: No Symptoms - Past Medical History Pertinent Past Medical History: Yes Neurological History: No Pertinent History ENT History: No Pertinent History Cardiac History: No Pertinent History Respiratory History: No Pertinent History Endocrine Medical History: No Pertinent History Musculoskeletal History: No Pertinent History GI Medical History: GERD History: No Pertinent History Psycho-Social History: No Pertinent History Female Reproductive Disorders: No Pertinent History Other Medical History: PCOS-hormone imbalance - Past Surgical History Past Surgical History: Yes Neuro Surgical History: No Pertinent History Cardiac: No Pertinent History Respiratory: No Pertinent History Gastrointestinal: Cholecystectomy Genitourinary: No Pertinent History Musculoskeletal: Other Female Surgical History: No Pertinent History Other Surgical History: tendon release lt wrist. toenail removed. tendon released,egd - Social History Smoking Status: Former smoker How long have you smoked: 1yr Exposure to second hand smoke: Yes Drug Use: none Patient Lives Alone: No - Female History Hx Last Menstrual Period: 09/15/19 Hx Now: No - Nursing Vital Signs Nursing Vital Signs: Initial Vital Signs Temperature 98.4 F 09/19/19 21:17 Pulse Rate 100 H 09/19/19 21:17 Respiratory Rate 20 09/19/19 21:17 Blood Pressure 133/87 09/19/19 21:17 O2 Sat by Pulse Oximetry 98 09/19/19 21:17 Pain Scale Pain Intensity [Chest] 10 Pain Intensity 10 - Physical Exam General Appearance: no apparent distress Eye Exam: PERRL/EOMI, eyes nml inspection Ears, Nose, Throat Exam: normal ENT inspection, pharynx normal Neck Exam: normal inspection, non-tender, supple, full range of motion Respiratory Exam: normal breath sounds, chest tenderness (Anterior sternum and minimal tenderness around parasternal area. No crepitus), lungs clear Cardiovascular Exam: regular rate/rhythm, normal heart sounds Gastrointestinal/Abdomen Exam: soft, No tenderness Back Exam: normal inspection, normal range of motion Extremity Exam: normal inspection, No karson's sign, No inflammation, No joint swelling, No swelling, No tenderness Neurologic Exam: alert, oriented x 3, cooperative Skin Exam: normal color SpO2 Interpretation: normal SpO2: 99 O2 Delivery: Room Air Ordered Tests: Active Orders 24 hr Category Date Time Status CHEST 2 VIEWS (PA AND LAT) Stat Exams 09/19/19 21:26 Taken HCG,QUALITATIVE URINE Stat Lab 09/19/19 21:24 Completed Medication Summary Discontinued Medications Generic Name Dose Route Start Last Admin Trade Name Frances PRN Reason Stop Dose Admin Ketorolac Tromethamine 30 mg 09/19/19 22:10 09/19/19 22:12 Toradol 30 Mg Injection IM 09/19/19 22:11 30 mg STAT ONE Administration Ketorolac Tromethamine Confirm 09/19/19 22:11 Toradol 30 Mg Injection Administered 09/19/19 22:12 Dose 30 mg .ROUTE .STK-MED ONE Lab/Rad Data: Laboratory Results 09/19/19 Range/Units 21:24 Urine HCG, Qual NEGATIVE (Negative) - Progress Progress: improved Air Movement: good Progress Note: 09/19/19 22:51 She is given Toradol and on reevaluation pain is much better. She has reproducible pain/tenderness in the sternum. Rule out fracture sternum/ribs. No pneumo thorax. I believe she has strained her anterior chest wall. Recommended taking Tylenol ibuprofen and outpatient follow-up. Blood Culture(s) Obtained: No Antibiotics given: No Counseled pt/family regarding: diagnosis, need for follow-up, rad results - Departure Departure Disposition: Home Clinical Impression: Anterior chest wall pain Condition: Stable Critical Care Time: No Referrals: SKYLAR PARSON [Primary Care Provider] - (1-2 days for re evaluation) Instructions: Costochondritis (DC) Additional Instructions: Take Tylenol/ibuprofen as needed. Do deep breathing exercises. Follow-up with primary care for reevaluation. Return to ER for worsening pain/shortness of breath.
[2019-09-19 22:56] VITALS: BP 118/88; PULSE 86; O2SAT 97
--- NOTE | 2019-09-20 08:46 | XRAY ---
Exam: Two-view chest from 09/19/2019. Comparison: Two-view chest from 03/25/2017. Indication: 19-year-old female with difficulty breathing, chest congestion, shortness of breath. Findings: Upright PA and lateral chest films are submitted for evaluation. The heart size and contour are normal. The lizz and mediastinal structures appear unremarkable. The lungs are adequately inflated. There appears to be a small calcified granuloma within the superior segment of a lower lobe on the lateral radiograph representing no change. No air space infiltrates, vascular congestion, pneumothorax, or pleural effusion is seen. No acute osseous process is seen. Surgical clips consistent with prior cholecystectomy are seen within the right upper quadrant of the abdomen. Impression: 1. No acute cardiopulmonary disease is seen, no change from 03/25/2017.
== END 2019-09-19 23:02 | disposition home or self-care (01) ==
LOC: ED 21:09
DX: R07.89 Other chest pain (principal)
CPT/HCPCS: 71046; 84703; 96372; 99284; J1885

== ENCOUNTER 2019-10-30 23:07 | Emergency (ER) | payer BC ==
--- NOTE | 2019-10-30 23:12 | ERPHSYRPT ---
- History of Present Illness Time Seen by Provider: 10/30/19 23:12 Source: patient Exam Limitations: no limitations Physician History: This is a 19-year-old white female who is taking Wellbutrin and trazodone medication. She is allergic to morphine. Patient presents with 4-day history of intermittent rectal bleeding with bowel movements. She states that the bleeding is significant and compares it to her menstrual period. Patient denies fever. Patient denies cough she denies chest pain. She has had no diarrhea. She has no history of any hemorrhoid disease. She is never had anything like this before. She denies any instrumentation. Severity: mild Modifying Factors: Improves With: other (Bowel movement brings it on.) Associated Symptoms: abdominal pain (Described as pelvic pressure) Allergies/Adverse Reactions: morphine Adverse Reaction (Mild, Verified 09/19/19 21:15) Vomiting Hx Tetanus, Diphtheria Vaccination/Date Given: Yes Hx Influenza Vaccination/Date Given: No Hx Pneumococcal Vaccination/Date Given: No Travel Risk - International Travel Have you traveled outside of the country in past 3 weeks: No - Coronavirus Screening Are you exhibiting any of the following symptoms?: No Close contact with a COVID-19 positive Pt in past 14-21 Days: No - Review of Systems Constitutional: No Symptoms Eyes: No Symptoms Ears, Nose, & Throat: No Symptoms Respiratory: No Symptoms Cardiac: No Symptoms Abdominal/Gastrointestinal: Abdominal Pain (Described as pelvic pressure), Other (Rectal bleeding with bowel movement) Genitourinary Symptoms: No Symptoms Musculoskeletal: No Symptoms Skin: No Symptoms Neurological: No Symptoms Psychological: No Symptoms Endocrine: No Symptoms Hematologic/Lymphatic: No Symptoms Immunological/Allergic: No Symptoms All Other Systems: Reviewed and Negative - Past Medical History Pertinent Past Medical History: Yes Neurological History: No Pertinent History ENT History: No Pertinent History Cardiac History: No Pertinent History Respiratory History: No Pertinent History Endocrine Medical History: No Pertinent History Musculoskeletal History: No Pertinent History GI Medical History: GERD History: No Pertinent History Psycho-Social History: No Pertinent History Female Reproductive Disorders: No Pertinent History Other Medical History: PCOS-hormone imbalance - Past Surgical History Past Surgical History: Yes Neuro Surgical History: No Pertinent History Cardiac: No Pertinent History Respiratory: No Pertinent History Gastrointestinal: Cholecystectomy Genitourinary: No Pertinent History Musculoskeletal: Other Female Surgical History: No Pertinent History Other Surgical History: tendon release lt wrist. toenail removed. tendon released,egd - Social History Smoking Status: Former smoker How long have you smoked: 1yr Exposure to second hand smoke: Yes Drug Use: none Patient Lives Alone: No - Nursing Vital Signs Nursing Vital Signs: Initial Vital Signs Temperature 98.2 F 10/30/19 23:21 Pulse Rate 86 10/30/19 23:21 Respiratory Rate 16 10/30/19 23:21 Blood Pressure 152/95 10/30/19 23:21 O2 Sat by Pulse Oximetry 100 10/30/19 23:21 Pain Scale Pain Intensity 5 - Physical Exam General Appearance: no apparent distress, alert, anxiety, obese Eye Exam: PERRL/EOMI, eyes nml inspection Ears, Nose, Throat Exam: normal ENT inspection, moist mucous membranes Neck Exam: normal inspection, non-tender, supple, full range of motion Respiratory Exam: normal breath sounds, lungs clear, airway intact, No chest tenderness, No respiratory distress Cardiovascular Exam: regular rate/rhythm, normal heart sounds, normal peripheral pulses Gastrointestinal/Abdomen Exam: soft, normal bowel sounds, tenderness (Mild bilateral lower quadrant tenderness with palpation), guarding, No rebound Pelvic Exam: not done Back Exam: normal inspection, normal range of motion, No CVA tenderness, No vertebral tenderness Extremity Exam: normal inspection, normal range of motion, pelvis stable Neurologic Exam: alert, oriented x 3, cooperative, mold setter II-XII nml as tested, normal mood/affect, nml cerebellar function, nml station & gait, sensation nml Skin Exam: normal color, warm, dry Lymphatic Exam: No adenopathy SpO2 Interpretation: normal O2 Delivery: Room Air - Course Nursing assessment & vital signs reviewed: Yes Ordered Tests: Active Orders 24 hr Category Date Time Status IV Insertion STAT Care 10/30/19 23:47 Active ABDOMEN AND PELVIS W/0 CONTRAS [CT] Stat Exams 10/31/19 00:30 Taken AMYLASE Stat Lab 10/30/19 23:59 Completed CBC W DIFF Stat Lab 10/30/19 23:59 Completed CMP Stat Lab 10/30/19 23:59 Completed HCG QUALITATIVE,SERUM Stat Lab 10/30/19 23:59 Completed LIPASE Stat Lab 10/30/19 23:59 Completed Lactic Acid Stat Lab 10/30/19 23:47 Completed PROTIME WITH INR Stat Lab 10/30/19 23:59 Completed UA W/RFX UR CULTURE Stat Lab 10/31/19 00:13 Completed Lab/Rad Data: Laboratory Result Diagrams 10/30/19 23:59 10/30/19 23:59 Laboratory Results 10/31/19 10/30/19 10/30/19 Range/Units 00:13 23:59 23:59 WBC (4.0-10.5) K/mm3 RBC (4.1-5.4) M/mm3 Hgb (12.0-16.0) gm/dl Hct (35-47) % MCV (78-100) fl MCH (26-32) pg MCHC (32-36) g/dl RDW (11.5-14.0) % Plt Count (150-450) K/mm3 MPV (7.5-11.0) fl Gran % (36.0-66.0) % Eos # (Auto) (0-0.5) Absolute Lymphs (auto) (1.0-4.6) Absolute Monos (auto) (0.0-1.3) Lymphocytes % (24.0-44.0) % Monocytes % (0.0-12.0) % Eosinophils % (0.00-5.0) % Basophils % (0.0-0.4) % Absolute Granulocytes (1.4-6.9) Basophils # (0-0.4) PT 12.3 (9.95-12.35) SECONDS INR 1.09 (0.8-3.0) Sodium (137-145) mmol/L Potassium (3.5-5.1) mmol/L Chloride (98-107) mmol/L Carbon Dioxide (22-30) mmol/L Anion Gap (5-15) MEQ/L BUN (7-17) mg/dL Creatinine (0.52-1.04) mg/dL Estimated GFR ML/MIN Glucose (74-106) mg/dL Lactic Acid (0.4-2.0) Calcium (8.4-10.2) mg/dL Total Bilirubin (0.2-1.3) mg/dL AST (14-36) U/L ALT (0-35) U/L Alkaline Phosphatase (38-126) U/L Serum Total Protein (6.3-8.2) g/dL Albumin (3.5-5.0) g/dL Amylase (30-110) U/L Lipase (23-300) U/L Serum , Qual NEGATIVE (Negative) Urine Color YELLOW (YELLOW) Urine Appearance SLIGHTLY CLOUDY (CLEAR) Urine pH 6.0 (5-6) Ur Specific [place] 1.028 (1.005-1.025) Urine Protein NEGATIVE (Negative) Urine Ketones NEGATIVE (NEGATIVE) Urine Blood NEGATIVE (0-5) Fabio/ul Urine Nitrite NEGATIVE (NEGATIVE) Urine Bilirubin NEGATIVE (NEGATIVE) Urine Urobilinogen 2 (0-1) mg/dL Ur Leukocyte Esterase TRACE (NEGATIVE) Urine WBC (Auto) 0-2 (0-5) /HPF Urine RBC (Auto) NONE (0-2) /HPF U Epithel Cells (Auto) FEW (FEW) /HPF Urine Bacteria (Auto) NONE (NEGATIVE) /HPF Urine Mucus (Auto) SLIGHT (NEGATIVE) /HPF Urine Culture Reflexed NO (NO) Urine Glucose NEGATIVE (NEGATIVE) mg/dL 10/30/19 10/30/19 10/30/19 Range/Units 23:59 23:59 23:47 WBC 8.7 (4.0-10.5) K/mm3 RBC 4.47 (4.1-5.4) M/mm3 Hgb 12.7 (12.0-16.0) gm/dl Hct 38.8 (35-47) % MCV 86.8 (78-100) fl MCH 28.4 (26-32) pg MCHC 32.7 (32-36) g/dl RDW 12.8 (11.5-14.0) % Plt Count 299 (150-450) K/mm3 MPV 10.7 (7.5-11.0) fl Gran % 54.0 (36.0-66.0) % Eos # (Auto) 0.25 (0-0.5) Absolute Lymphs (auto) 3.09 (1.0-4.6) Absolute Monos (auto) 0.60 (0.0-1.3) Lymphocytes % 35.7 (24.0-44.0) % Monocytes % 6.9 (0.0-12.0) % Eosinophils % 2.9 (0.00-5.0) % Basophils % 0.5 (0.0-0.4) % Absolute Granulocytes 4.67 (1.4-6.9) Basophils # 0.04 (0-0.4) PT (9.95-12.35) SECONDS INR (0.8-3.0) Sodium 140 (137-145) mmol/L Potassium 3.9 (3.5-5.1) mmol/L Chloride 107 (98-107) mmol/L Carbon Dioxide 24 (22-30) mmol/L Anion Gap 12.5 (5-15) MEQ/L BUN 16 (7-17) mg/dL Creatinine 0.79 (0.52-1.04) mg/dL Estimated GFR > 60.0 ML/MIN Glucose 116 H (74-106) mg/dL Lactic Acid 1.3 (0.4-2.0) Calcium 9.0 (8.4-10.2) mg/dL Total Bilirubin 0.30 (0.2-1.3) mg/dL AST 32 (14-36) U/L ALT 42 H (0-35) U/L Alkaline Phosphatase 73 (38-126) U/L Serum Total Protein 7.3 (6.3-8.2) g/dL Albumin 4.3 (3.5-5.0) g/dL Amylase 48 (30-110) U/L Lipase 75 (23-300) U/L Serum , Qual (Negative) Urine Color (YELLOW) Urine Appearance (CLEAR) Urine pH (5-6) Ur Specific [place] (1.005-1.025) Urine Protein (Negative) Urine Ketones (NEGATIVE) Urine Blood (0-5) Fabio/ul Urine Nitrite (NEGATIVE) Urine Bilirubin (NEGATIVE) Urine Urobilinogen (0-1) mg/dL Ur Leukocyte Esterase (NEGATIVE) Urine WBC (Auto) (0-5) /HPF Urine RBC (Auto) (0-2) /HPF U Epithel Cells (Auto) (FEW) /HPF Urine Bacteria (Auto) (NEGATIVE) /HPF Urine Mucus (Auto) (NEGATIVE) /HPF Urine Culture Reflexed (NO) Urine Glucose (NEGATIVE) mg/dL - Progress Progress: unchanged Progress Note: 10/31/19 01:08 CAT scan of the abdomen and pelvis shows a small amount of free fluid in the pelvis that is likely physiologic. Otherwise there is no acute findings present. Counseled pt/family regarding: lab results, diagnosis, need for follow-up, rad results - Departure Departure Disposition: Home Clinical Impression: Rectal bleeding Condition: Stable Critical Care Time: No Referrals: SKYLAR PARSON [Primary Care Provider] - Additional Instructions: Drink plenty of fluids. Follow-up with your primary care doctor today by phone to arrange for follow-up appointment for further management and possible referral to a forest fire management officer.
[2019-10-31 00:14] LABS: Absolute Neutrophil Ct (ANC) 4.67 (1.4-6.9); BASOPHIL % 0.5 % (0.0-0.4); Basophil (Absolute #) 0.04 (0-0.4); Eosinophil % 2.9 % (0.00-5.0); Eosinophil (Absolute #) 0.25 (0-0.5); Hematocrit 38.8 % (35-47); Hemoglobin 12.7 gm/dl (12.0-16.0); Lymphocyte (Absolute #) 3.09 (1.0-4.6); Lymphocytes % 35.7 % (24.0-44.0); Mean Cell Volume 86.8 fl (78-100); Mean Corpuscular Hemoglobin 28.4 pg (26-32); Mean Corpuscular Hgb Concent. 32.7 g/dl (32-36); Mean Platelet Volume 10.7 fl (7.5-11.0); Monocytes % 6.9 % (0.0-12.0); Platelet Count 299 K/mm3 (150-450); Red Blood Count 4.47 M/mm3 (4.1-5.4); Red Cell Distribution Width 12.8 % (11.5-14.0); White Blood Count 8.7 K/mm3 (4.0-10.5)
[2019-10-31 00:24] LABS: INR 1.09 (0.8-3.0); PROTIME 12.3 SECONDS (9.95-12.35)
[2019-10-31 00:28] LABS: ALBUMIN 4.3 g/dL (3.5-5.0); ALKALINE PHOSPHATASE 73 U/L (38-126); AMYLASE 48 U/L (30-110); ANION GAP 12.5 MEQ/L (5-15); BLOOD UREA NITROGEN 16 mg/dL (7-17); CHLORIDE 107 mmol/L (98-107); Carbon Dioxide 24 mmol/L (22-30); Creatinine 1 0.79 mg/dL (0.52-1.04); Glucose 116 mg/dL (74-106); LIPASE 75 U/L (23-300); Potassium 3.9 mmol/L (3.5-5.1); SGOT/AST 32 U/L (14-36); SGPT/ALT 42 U/L (0-35); SODIUM 140 mmol/L (137-145); Total Protein 7.3 g/dL (6.3-8.2)
[2019-10-31 00:52] LABS: Appearance SLIGHTLY CLOUDY (CLEAR); Bilirubin NEGATIVE (NEGATIVE); Blood NEGATIVE Ery/ul (0-5); Epithelial Cells FEW /HPF (FEW); Glucose NEGATIVE (NEGATIVE); Ketones NEGATIVE (NEGATIVE); Leukocyte Esterase TRACE (NEGATIVE); Mucus SLIGHT /HPF (NEGATIVE); Nitrite NEGATIVE (NEGATIVE); Protein,Urine Dip NEGATIVE (Negative); Specific Gravity 1.028 (1.005-1.025); Urobilinogen 2 mg/dL (0-1); WBC 0-2 /HPF (0-5)
[2019-10-31 01:23] VITALS: BP 140/78; PULSE 80; O2SAT 99
--- NOTE | 2019-10-31 09:38 | XRAY ---
Indication: Rectal bleeding with bowel movements. Multiple contiguous axial images obtained through the abdomen and pelvis without contrast as ordered. Comparison: November 06, 2018 Lung bases remaining clear. Heart is is not enlarged. Stomach is distended with food/fluid. Noncontrasted stomach and bowel loops appear nonobstructed. Normal appendix. Again mild diffuse scattered colonic fecal debris throughout. Again tiny cul-de-sac fluid presumed physiologic. No free air. Stable cholecystectomy. Remaining liver, pancreas, spleen, adrenal glands, kidneys, ureters, bladder, uterus, and aorta appear unremarkable for noncontrast exam. Osseous structures intact. No ventral or inguinal hernias. Impression: 1. Again mild diffuse fecal stasis and tiny cul-de-sac physiologic fluid. 2. Remaining CT abdomen/pelvis without contrast exam is negative. Comment: Preliminary interpretation was made by [facility]. No critical discrepancy.
== END 2019-10-31 01:25 | disposition home or self-care (01) ==
LOC: ED 23:07
DX: K62.5 Hemorrhage of anus and rectum (principal)
CPT/HCPCS: 36415; 74176; 80053; 81001; 81025; 82150; 83605; 83690; 85025; 85610; 99284

== ENCOUNTER 2020-01-14 20:57 | Emergency (ER) | payer SELFPAY ==
--- NOTE | 2020-01-14 21:35 | ERPHSYRPT ---
- History of Present Illness Time Seen by Provider: 01/14/20 21:33 Historian: patient Exam Limitations: no limitations Patient Subjective Stated Complaint: pt states that she began to have rt belly pain 1 hour prior to coming into the hospital, pt states that she is 8-9 weeks , pt states that she does have morning sickness Triage Nursing Assessment: pt ambulated into the er; pt is axo x3; c/o abd pain; states 8/10 pain to RLQ; abd is round, soft, tender with palpation; clear lung sounds in all lobes; heart tones clear; urine is cloudy and farhana; 8-9 weeks ; N/V; hypertensive Timing/Duration: today, other (started one hour ago) Activities at Onset: none Quality: cramping Abdominal Pain Onset Location: RLQ Pain Radiation: no radiation Severity of Pain-Max: moderate Severity of Pain-Current: mild Modifying Factors: Improves With: nothing Associated Symptoms: other (she is and told the nurse that she was not having any bleeding, possibly the nurse indicated to her that she may not get an US done if there is no vaginal bleeding, so when I talked to her later, her story changed to that she had some vaginal bleeding earlier this evening, resolved. ) Previous symptoms: no prior history, other (this is first ) Allergies/Adverse Reactions: morphine Adverse Reaction (Mild, Verified 01/14/20 21:13) Vomiting Home Medications: Vits W-Ca,Fe,FA(<1Mg) [] 1 each PO DAILY 01/14/20 [History] Hx Tetanus, Diphtheria Vaccination/Date Given: No (unknown) Hx Influenza Vaccination/Date Given: No Hx Pneumococcal Vaccination/Date Given: No Travel Risk - International Travel Have you traveled outside of the country in past 3 weeks: No - Coronavirus Screening Are you exhibiting any of the following symptoms?: No Close contact with a COVID-19 positive Pt in past 14-21 Days: No - Review of Systems Constitutional: No Symptoms Eyes: No Symptoms Ears, Nose, & Throat: No Symptoms Respiratory: No Symptoms Cardiac: No Symptoms Abdominal/Gastrointestinal: Abdominal Pain (RLQ pelvic area) Genitourinary Symptoms: (8-9 weeks), Vaginal Bleeding (mild - resolved), No Vaginal Discharge Musculoskeletal: No Symptoms Skin: No Symptoms Neurological: No Symptoms Psychological: No Symptoms Endocrine: No Symptoms Hematologic/Lymphatic: No Symptoms Immunological/Allergic: No Symptoms All Other Systems: Reviewed and Negative - Past Medical History Pertinent Past Medical History: Yes Neurological History: No Pertinent History ENT History: No Pertinent History Cardiac History: No Pertinent History Respiratory History: No Pertinent History Endocrine Medical History: No Pertinent History Musculoskeletal History: No Pertinent History GI Medical History: GERD History: No Pertinent History Psycho-Social History: No Pertinent History Female Reproductive Disorders: No Pertinent History Other Medical History: PMHX: DEPRESSION. SX HX CHOLECYSTECTOMY, TENDON RELEASE LEFT WRIST. - Past Surgical History Past Surgical History: Yes Neuro Surgical History: No Pertinent History Cardiac: No Pertinent History Respiratory: No Pertinent History Gastrointestinal: Cholecystectomy Genitourinary: No Pertinent History Musculoskeletal: Other Female Surgical History: No Pertinent History Other Surgical History: tendon release lt wrist. toenail removed. tendon released,egd - Social History Smoking Status: Former smoker How long have you smoked: 1yr Exposure to second hand smoke: Yes Drug Use: none Patient Lives Alone: No Significant Family History: no pertinent family hx - Female History Hx Now: Yes (8-9 weeks) - Nursing Vital Signs Nursing Vital Signs: Initial Vital Signs Temperature 98.2 F 01/14/20 21:14 Pulse Rate 76 01/14/20 21:14 Respiratory Rate 16 01/14/20 21:14 Blood Pressure 147/80 01/14/20 21:14 O2 Sat by Pulse Oximetry 99 01/14/20 21:14 Pain Scale Pain Intensity 3 - Physical Exam General Appearance: no apparent distress, anxiety, obese Eye Exam: PERRL/EOMI Ears, Nose, Throat Exam: normal ENT inspection Neck Exam: normal inspection Respiratory Exam: normal breath sounds Cardiovascular Exam: regular rate/rhythm Gastrointestinal/Abdomen Exam: soft, normal bowel sounds Pelvic Exam: not done, other (patient declined) Rectal Exam: deferred Back Exam: normal inspection Extremity Exam: normal inspection Neurologic Exam: alert, oriented x 3 Skin Exam: normal color SpO2 Interpretation: normal SpO2: 99 O2 Delivery: Room Air - Course Nursing assessment & vital signs reviewed: Yes - Radiology Ultrasound Exam OB Ultrasound: Other (Normal IUP at 8-9 weeks EGA) Ordered Tests: Active Orders 24 hr Category Date Time Status OB <14 WKS 1ST GESTATION [US] Routine Exams 01/15/20 01:10 Taken CBC W DIFF Stat Lab 01/14/20 21:35 Completed CMP Stat Lab 01/14/20 21:35 Completed HCG, Quantitative (Inhouse) Stat Lab 01/14/20 21:56 Completed UA W/RFX UR CULTURE Stat Lab 01/14/20 21:35 Completed Lab/Rad Data: Laboratory Result Diagrams 01/14/20 21:35 01/14/20 21:35 Laboratory Results 01/14/20 01/14/20 01/14/20 Range/Units 21:56 21:35 21:35 WBC (4.0-10.5) K/mm3 RBC (4.1-5.4) M/mm3 Hgb (12.0-16.0) gm/dl Hct (35-47) % MCV (78-100) fl MCH (26-32) pg MCHC (32-36) g/dl RDW (11.5-14.0) % Plt Count (150-450) K/mm3 MPV (7.5-11.0) fl Gran % (36.0-66.0) % Eos # (Auto) (0-0.5) Absolute Lymphs (auto) (1.0-4.6) Absolute Monos (auto) (0.0-1.3) Lymphocytes % (24.0-44.0) % Monocytes % (0.0-12.0) % Eosinophils % (0.00-5.0) % Basophils % (0.0-0.4) % Absolute Granulocytes (1.4-6.9) Basophils # (0-0.4) Sodium 136 L (137-145) mmol/L Potassium 3.9 (3.5-5.1) mmol/L Chloride 107 (98-107) mmol/L Carbon Dioxide 19 L (22-30) mmol/L Anion Gap 13.1 (5-15) MEQ/L BUN 7 (7-17) mg/dL Creatinine 0.57 (0.52-1.04) mg/dL Estimated GFR > 60.0 ML/MIN Glucose 128 H (74-106) mg/dL Calcium 9.4 (8.4-10.2) mg/dL Total Bilirubin 0.30 (0.2-1.3) mg/dL AST 20 (14-36) U/L ALT 18 (0-35) U/L Alkaline Phosphatase 60 (38-126) U/L Serum Total Protein 7.4 (6.3-8.2) g/dL Albumin 4.4 (3.5-5.0) g/dL Beta HCG, Quant 743326 mIU/ml Urine Color YELLOW (YELLOW) Urine Appearance SLIGHTLY CLOUDY (CLEAR) Urine pH 5.0 (5-6) Ur Specific [place] 1.026 (1.005-1.025) Urine Protein NEGATIVE (Negative) Urine Ketones NEGATIVE (NEGATIVE) Urine Blood NEGATIVE (0-5) Fabio/ul Urine Nitrite NEGATIVE (NEGATIVE) Urine Bilirubin NEGATIVE (NEGATIVE) Urine Urobilinogen 2 (0-1) mg/dL Ur Leukocyte Esterase NEGATIVE (NEGATIVE) Urine WBC (Auto) 3-5 (0-5) /HPF Urine RBC (Auto) 0-2 (0-2) /HPF U Epithel Cells (Auto) RARE (FEW) /HPF Urine Bacteria (Auto) RARE (NEGATIVE) /HPF Calcium Oxalate Crystal >100 (NEGATIVE) /HPF Urine Mucus (Auto) MODERATE (NEGATIVE) /HPF Urine Culture Reflexed NO (NO) Urine Glucose NEGATIVE (NEGATIVE) mg/dL 01/14/20 Range/Units 21:35 WBC 14.2 H (4.0-10.5) K/mm3 RBC 4.61 (4.1-5.4) M/mm3 Hgb 13.3 (12.0-16.0) gm/dl Hct 39.6 (35-47) % MCV 85.9 (78-100) fl MCH 28.9 (26-32) pg MCHC 33.6 (32-36) g/dl RDW 12.9 (11.5-14.0) % Plt Count 347 (150-450) K/mm3 MPV 10.6 (7.5-11.0) fl Gran % 67.3 H (36.0-66.0) % Eos # (Auto) 0.40 (0-0.5) Absolute Lymphs (auto) 3.33 (1.0-4.6) Absolute Monos (auto) 0.85 (0.0-1.3) Lymphocytes % 23.5 L (24.0-44.0) % Monocytes % 6.0 (0.0-12.0) % Eosinophils % 2.8 (0.00-5.0) % Basophils % 0.4 (0.0-0.4) % Absolute Granulocytes 9.53 H (1.4-6.9) Basophils # 0.05 (0-0.4) Sodium (137-145) mmol/L Potassium (3.5-5.1) mmol/L Chloride (98-107) mmol/L Carbon Dioxide (22-30) mmol/L Anion Gap (5-15) MEQ/L BUN (7-17) mg/dL Creatinine (0.52-1.04) mg/dL Estimated GFR ML/MIN Glucose (74-106) mg/dL Calcium (8.4-10.2) mg/dL Total Bilirubin (0.2-1.3) mg/dL AST (14-36) U/L ALT (0-35) U/L Alkaline Phosphatase (38-126) U/L Serum Total Protein (6.3-8.2) g/dL Albumin (3.5-5.0) g/dL Beta HCG, Quant mIU/ml Urine Color (YELLOW) Urine Appearance (CLEAR) Urine pH (5-6) Ur Specific [place] (1.005-1.025) Urine Protein (Negative) Urine Ketones (NEGATIVE) Urine Blood (0-5) Fabio/ul Urine Nitrite (NEGATIVE) Urine Bilirubin (NEGATIVE) Urine Urobilinogen (0-1) mg/dL Ur Leukocyte Esterase (NEGATIVE) Urine WBC (Auto) (0-5) /HPF Urine RBC (Auto) (0-2) /HPF U Epithel Cells (Auto) (FEW) /HPF Urine Bacteria (Auto) (NEGATIVE) /HPF Calcium Oxalate Crystal (NEGATIVE) /HPF Urine Mucus (Auto) (NEGATIVE) /HPF Urine Culture Reflexed (NO) Urine Glucose (NEGATIVE) mg/dL - Progress Progress: improved, re-examined Progress Note: 01/15/20 01:08 EST Normal US. The pain miraculously resolved when the patient was told that she had a normal US. She had come in only on hour after pain started, never a sig. pain, misled staff on vaginal bleeding, all in order to obtain a US late on a Thursday night. Counseled pt/family regarding: lab results, diagnosis, need for follow-up, rad results - Departure Departure Disposition: Home Clinical Impression: Threatened affecting intrauterine Condition: Stable Critical Care Time: No Referrals: SKYLAR PARSON [Primary Care Provider] - Instructions: Threatened Miscarriage (DC) Additional Instructions: Home for rest. Tylenol for pain. Follow-up with your OB
[2020-01-14 21:39] LABS: Absolute Neutrophil Ct (ANC) 9.53 (1.4-6.9); BASOPHIL % 0.4 % (0.0-0.4); Basophil (Absolute #) 0.05 (0-0.4); Eosinophil % 2.8 % (0.00-5.0); Hematocrit 39.6 % (35-47); Hemoglobin 13.3 gm/dl (12.0-16.0); Lymphocyte (Absolute #) 3.33 (1.0-4.6); Lymphocytes % 23.5 % (24.0-44.0); Mean Cell Volume 85.9 fl (78-100); Mean Corpuscular Hemoglobin 28.9 pg (26-32); Mean Corpuscular Hgb Concent. 33.6 g/dl (32-36); Mean Platelet Volume 10.6 fl (7.5-11.0); Monocyte (Absolute #) 0.85 (0.0-1.3); Neutrophil % 67.3 % (36.0-66.0); Platelet Count 347 K/mm3 (150-450); Red Blood Count 4.61 M/mm3 (4.1-5.4); Red Cell Distribution Width 12.9 % (11.5-14.0); White Blood Count 14.2 K/mm3 (4.0-10.5)
[2020-01-14 21:44] LABS: Appearance SLIGHTLY CLOUDY (CLEAR); Bacteria RARE /HPF (NEGATIVE); Bilirubin NEGATIVE (NEGATIVE); Blood NEGATIVE Ery/ul (0-5); Calcium Oxalate Crystals >100 /HPF (NEGATIVE); Epithelial Cells RARE /HPF (FEW); Glucose NEGATIVE (NEGATIVE); Ketones NEGATIVE (NEGATIVE); Leukocyte Esterase NEGATIVE (NEGATIVE); Mucus MODERATE /HPF (NEGATIVE); Nitrite NEGATIVE (NEGATIVE); Protein,Urine Dip NEGATIVE (Negative); RBC 0-2 /HPF (0-2); Specific Gravity 1.026 (1.005-1.025); Urobilinogen 2 mg/dL (0-1)
[2020-01-14 21:50] LABS: ALBUMIN 4.4 g/dL (3.5-5.0); ALKALINE PHOSPHATASE 60 U/L (38-126); ANION GAP 13.1 MEQ/L (5-15); BLOOD UREA NITROGEN 7 mg/dL (7-17); CHLORIDE 107 mmol/L (98-107); Calcium 9.4 mg/dL (8.4-10.2); Carbon Dioxide 19 mmol/L (22-30); Creatinine 1 0.57 mg/dL (0.52-1.04); EST GLOMERULAR FILTRATION RATE > 60.0 ML/MIN; Glucose 128 mg/dL (74-106); Potassium 3.9 mmol/L (3.5-5.1); SGOT/AST 20 U/L (14-36); SGPT/ALT 18 U/L (0-35); SODIUM 136 mmol/L (137-145); Total Protein 7.4 g/dL (6.3-8.2)
[2020-01-15 01:27] VITALS: BP 118/74; PULSE 84; O2SAT 98
--- NOTE | 2020-01-15 08:59 | XRAY ---
Indication: Right pelvic pain. First trimester . Two-dimensional transabdominal early OB ultrasound performed. Comparison: None There is a single intrauterine gestational sac with presence of a single pole and yolk sac. Mean crown-rump length measures 2.13 cm corresponding to 8 weeks 5 days. heart rate 161 BPM. No abnormal subchorionic hemorrhage. Left and right ovaries are unremarkable with incidental 1.6 cm right ovary corpus luteal cyst. No suspicious adnexal mass or free fluid. Impression: Single viable intrauterine measuring 8 weeks 5 days. Expected date of confinement is August 21, 2020. Nothing acute. Comment: Preliminary report was given.
== END 2020-01-15 01:31 | disposition home or self-care (01) ==
LOC: ED 20:57
DX: O20.0 Threatened abortion (principal); Z3A.09 9 weeks gestation of pregnancy
CPT/HCPCS: 36415; 76801; 80053; 81001; 84702; 85025; 99284

== ENCOUNTER 2020-04-24 07:43 | Emergency (ER) | payer BC ==
[2020-04-24 08:32] LABS: Absolute Neutrophil Ct (ANC) 8.49 (1.4-6.9); BASOPHIL % 0.4 % (0.0-0.4); Basophil (Absolute #) 0.04 (0-0.4); Eosinophil % 1.8 % (0.00-5.0); Hematocrit 36.2 % (35-47); Hemoglobin 11.4 gm/dl (12.0-16.0); Lymphocyte (Absolute #) 1.91 (1.0-4.6); Lymphocytes % 16.9 % (24.0-44.0); Mean Corpuscular Hemoglobin 27.1 pg (26-32); Mean Corpuscular Hgb Concent. 31.5 g/dl (32-36); Mean Platelet Volume 10.2 fl (7.5-11.0); Monocyte (Absolute #) 0.65 (0.0-1.3); Monocytes % 5.8 % (0.0-12.0); Neutrophil % 75.1 % (36.0-66.0); Platelet Count 312 K/mm3 (150-450); Red Blood Count 4.21 M/mm3 (4.1-5.4); Red Cell Distribution Width 12.8 % (11.5-14.0); White Blood Count 11.3 K/mm3 (4.0-10.5)
--- NOTE | 2020-04-24 08:38 | ERPHSYRPT ---
- History of Present Illness Time Seen by Provider: 04/24/20 08:00 Source: patient Exam Limitations: no limitations Patient Subjective Stated Complaint: Pt c/o of ongoing cough, pain in the right leg and pain in the LUQ, pain in the leg has been for approx 2 weeks and her abdomen for about 3 days Triage Nursing Assessment: Pt brought to the ER by her , unable to obtain EKG within 10 minutes due to electrodes would not adhere to the patient, hypertensive, tachycardic, rates overall pain as 7/10, pain in abdomen comes and goes, pulses normal, skin n/w/d, dry unproductive cough, doesn't appear to be in any distress Physician History: Patient is a 19-year-old female who is currently 23 weeks presents to our ED with multiple complaints. Patient complains of cough, dizziness, leg pain, shortness of breath, left upper quadrant abdominal pain. Patient states her cough started approximately 3 to 4 days ago. Patient went to an urgent care and was told that she had reflux. Cough persisted. Yesterday she had a slight headache. This morning she awoke with dizziness right leg pain. Office c onstant. Dizziness resolved. Right leg pain is constant. Abdominal pain is intermittent. Her left upper quadrant abdominal pain is rated 7 out of 10. Otherwise no specific worsening or improving factors. Patient is otherwise healthy. Her [facility] physician is in [place]. No nausea vomiting or diaphoresis. No diarrhea. No rash. No trauma. No fever. Patient symptoms are mild to moderate in intensity. She voices no other complaints or concerns at this time. Timing/Duration: day(s) (3 days ago) Severity: moderate Modifying Factors: Improves With: nothing Associated Symptoms: abdominal pain, shortness of breath Allergies/Adverse Reactions: morphine Adverse Reaction (Mild, Verified 04/24/20 08:16) Vomiting Hx Tetanus, Diphtheria Vaccination/Date Given: No (unknown) Hx Influenza Vaccination/Date Given: No Hx Pneumococcal Vaccination/Date Given: No Travel Risk - International Travel Have you traveled outside of the country in past 3 weeks: No - Coronavirus Screening Are you exhibiting any of the following symptoms?: Yes Symptoms: Cough: New Onset Close contact with a COVID-19 positive Pt in past 14-21 Days: No - Review of Systems Constitutional: No Symptoms, No Fever, No Chills Eyes: No Symptoms Ears, Nose, & Throat: No Symptoms Respiratory: No Symptoms, No Cough, No Dyspnea Cardiac: No Symptoms, No Chest Pain, No Edema, No Syncope Abdominal/Gastrointestinal: No Symptoms, No Abdominal Pain, No Nausea, No Vomiting, No Diarrhea Genitourinary Symptoms: No Symptoms, No Dysuria Musculoskeletal: No Symptoms, No Back Pain, No Neck Pain Skin: No Symptoms, No Rash Neurological: No Symptoms, No Dizziness, No Focal Weakness, No Sensory Changes Psychological: No Symptoms Endocrine: No Symptoms Hematologic/Lymphatic: No Symptoms Immunological/Allergic: No Symptoms All Other Systems: Reviewed and Negative - Past Medical History Pertinent Past Medical History: Yes Neurological History: No Pertinent History ENT History: No Pertinent History Cardiac History: No Pertinent History Respiratory History: No Pertinent History Endocrine Medical History: No Pertinent History Musculoskeletal History: No Pertinent History GI Medical History: GERD History: No Pertinent History Psycho-Social History: No Pertinent History Female Reproductive Disorders: No Pertinent History Other Medical History: PMHX: DEPRESSION. SX HX CHOLECYSTECTOMY, TENDON RELEASE LEFT WRIST. - Past Surgical History Past Surgical History: Yes Neuro Surgical History: No Pertinent History Cardiac: No Pertinent History Respiratory: No Pertinent History Gastrointestinal: Cholecystectomy Genitourinary: No Pertinent History Musculoskeletal: Other Female Surgical History: No Pertinent History Other Surgical History: tendon release lt wrist. toenail removed. tendon released,egd - Social History Smoking Status: Former smoker How long have you smoked: 1yr Exposure to second hand smoke: Yes Drug Use: none Patient Lives Alone: No Significant Family History: no pertinent family hx - Female History Hx Now: Yes Expected Date of Delivery: 08/17/20 - Nursing Vital Signs Nursing Vital Signs: Initial Vital Signs Temperature 98.0 F 04/24/20 07:59 Pulse Rate 92 H 04/24/20 07:59 Respiratory Rate 32 H 04/24/20 07:59 Blood Pressure 143/84 04/24/20 07:59 O2 Sat by Pulse Oximetry 98 04/24/20 07:59 Pain Scale Pain Intensity 7 - Physical Exam General Appearance: no apparent distress, alert, other (Hirsutism, patient appears to be mildly tachypneic. Otherwise no acute distress. Nontoxic- appearing) Eye Exam: PERRL/EOMI, eyes nml inspection Ears, Nose, Throat Exam: normal ENT inspection, TMs normal, pharynx normal, moist mucous membranes Neck Exam: normal inspection, non-tender, supple, full range of motion Respiratory Exam: normal breath sounds, lungs clear, No respiratory distress Cardiovascular Exam: regular rate/rhythm, normal heart sounds, normal peripheral pulses Gastrointestinal/Abdomen Exam: soft, normal bowel sounds, other (Tenderness to palpation left upper quadrant.), No tenderness, No mass Back Exam: normal inspection, normal range of motion, No CVA tenderness, No vertebral tenderness Extremity Exam: normal inspection, normal range of motion, pelvis stable, other (Positive Homans' sign right lower extremity. Extremity neurovascular intact distally.) Neurologic Exam: alert, oriented x 3, cooperative, normal mood/affect, nml cerebellar function, nml station & gait, sensation nml, No motor deficits Skin Exam: normal color, warm, dry, No rash Lymphatic Exam: No adenopathy SpO2 Interpretation: normal SpO2: 99 O2 Delivery: Room Air - Course Nursing assessment & vital signs reviewed: Yes EKG Interpreted by Me: RATE (88), Sinus Rhythm, NORMAL AXIS, NORMAL INTERVALS - Radiology Exams Chest X-ray Interpretation: Teleradiologist Report (Clear lung mcneill. No cardiomegaly. Bony thorax intact. No new or acute findings.) - CT Exams Chest CT Interpretation: Tele-radiologist Report (Pulmonary embolus. No acute pulmonary abnormalities. Incidental small hiatal hernia.) - Radiology Ultrasound Exam OB Ultrasound: tele radiology report (Single viable intrauterine with mean gestational age of 24 weeks 6 days. Normal progression of no new acute findings. Heart rate is 147.) Venous Lower Extremity Ultrasound: tele radiology report (Venous duplex right lower extremity is negative for DVT.) Ordered Tests: Active Orders 24 hr Category Date Time Status Nurse Researcher STAT Care 04/24/20 08:07 Active EKG-ER Only STAT Care 04/24/20 08:06 Active IV Insertion STAT Care 04/24/20 08:06 Active Pulse Oximetry (ED) STAT Care 04/24/20 08:06 Active CHEST 1 VIEW (PORTABLE) Stat Exams 04/24/20 08:07 Completed CHEST WITH CONTRAST [CT] Stat Exams 04/24/20 10:08 Completed OB >14 WKS 1st GESTATION [US] Stat Exams 04/24/20 08:29 Completed VENOUS UNILAT/LIMITED EXTREMIT [US] Stat Exams 04/24/20 09:45 Completed CBC W DIFF Stat Lab 04/24/20 08:20 Completed CMP Stat Lab 04/24/20 08:20 Completed D-DIMER QUANTITATIVE Stat Lab 04/24/20 08:20 Completed INFLUENZA A+B MIA Stat Lab 04/24/20 09:50 Completed TROPONIN Q3H Lab 04/24/20 08:20 Completed TROPONIN Q3H Lab 04/24/20 11:07 Received TROPONIN Q3H Lab 04/24/20 14:15 Ordered TROPONIN Q3H Lab 04/24/20 17:15 Ordered TROPONIN Q3H Lab 04/24/20 20:15 Ordered UA W/RFX UR CULTURE Stat Lab 04/24/20 09:39 Completed Medication Summary Discontinued Medications Generic Name Dose Route Start Last Admin Trade Name Freq PRN Reason Stop Dose Admin Nitrofurantoin Macrocrystals 100 mg 04/24/20 11:37 04/24/20 11:38 Macrobid 100mg Capsule PO 04/24/20 11:38 100 mg STAT ONE Administration Nitrofurantoin Macrocrystals Confirm 04/24/20 11:37 Macrobid 100mg Capsule Administered 04/24/20 11:38 Dose 100 mg .ROUTE .[facility] ONE Lab/Rad Data: Laboratory Result Diagrams 04/24/20 08:20 04/24/20 08:20 Laboratory Results 04/24/20 04/24/20 04/24/20 Range/Units 09:50 09:39 08:20 WBC (4.0-10.5) K/mm3 RBC (4.1-5.4) M/mm3 Hgb (12.0-16.0) gm/dl Hct (35-47) % MCV (78-100) fl MCH (26-32) pg MCHC (32-36) g/dl RDW (11.5-14.0) % Plt Count (150-450) K/mm3 MPV (7.5-11.0) fl Gran % (36.0-66.0) % Eos # (Auto) (0-0.5) Absolute Lymphs (auto) (1.0-4.6) Absolute Monos (auto) (0.0-1.3) Lymphocytes % (24.0-44.0) % Monocytes % (0.0-12.0) % Eosinophils % (0.00-5.0) % Basophils % (0.0-0.4) % Absolute Granulocytes (1.4-6.9) Basophils # (0-0.4) D-Dimer (215-500) ng/mL Sodium (137-145) mmol/L Potassium (3.5-5.1) mmol/L Chloride (98-107) mmol/L Carbon Dioxide (22-30) mmol/L Anion Gap (5-15) MEQ/L BUN (7-17) mg/dL Creatinine (0.52-1.04) mg/dL Estimated GFR ML/MIN Glucose (74-106) mg/dL Calcium (8.4-10.2) mg/dL Total Bilirubin (0.2-1.3) mg/dL AST (14-36) U/L ALT (0-35) U/L Alkaline Phosphatase (38-126) U/L Troponin I < 0.012 (0.000-0.034) ng/mL Serum Total Protein (6.3-8.2) g/dL Albumin (3.5-5.0) g/dL Urine Color YELLOW (YELLOW) Urine Appearance SLIGHTLY CLOUDY (CLEAR) Urine pH 6.0 (5-6) Ur Specific [place] 1.021 (1.005-1.025) Urine Protein NEGATIVE (Negative) Urine Ketones TRACE (NEGATIVE) Urine Blood NEGATIVE (0-5) Fabio/ul Urine Nitrite NEGATIVE (NEGATIVE) Urine Bilirubin NEGATIVE (NEGATIVE) Urine Urobilinogen 2 (0-1) mg/dL Ur Leukocyte Esterase NEGATIVE (NEGATIVE) Urine WBC (Auto) 6-10 (0-5) /HPF Urine RBC (Auto) 0-2 (0-2) /HPF U Epithel Cells (Auto) FEW (FEW) /HPF Urine Bacteria (Auto) RARE (NEGATIVE) /HPF Urine Mucus (Auto) SLIGHT (NEGATIVE) /HPF Urine Culture Reflexed NO (NO) Urine Glucose 150 (NEGATIVE) mg/dL Influenza Type A Ag NEGATIVE (NEGATIVE) Influenza Type B Ag NEGATIVE (NEGATIVE) 04/24/20 04/24/20 04/24/20 Range/Units 08:20 08:20 08:20 WBC 11.3 H (4.0-10.5) K/mm3 RBC 4.21 (4.1-5.4) M/mm3 Hgb 11.4 L (12.0-16.0) gm/dl Hct 36.2 (35-47) % MCV 86.0 (78-100) fl MCH 27.1 (26-32) pg MCHC 31.5 L (32-36) g/dl RDW 12.8 (11.5-14.0) % Plt Count 312 (150-450) K/mm3 MPV 10.2 (7.5-11.0) fl Gran % 75.1 H (36.0-66.0) % Eos # (Auto) 0.20 (0-0.5) Absolute Lymphs (auto) 1.91 (1.0-4.6) Absolute Monos (auto) 0.65 (0.0-1.3) Lymphocytes % 16.9 L (24.0-44.0) % Monocytes % 5.8 (0.0-12.0) % Eosinophils % 1.8 (0.00-5.0) % Basophils % 0.4 (0.0-0.4) % Absolute Granulocytes 8.49 H (1.4-6.9) Basophils # 0.04 (0-0.4) D-Dimer 966 H* (215-500) ng/mL Sodium 135 L (137-145) mmol/L Potassium 3.8 (3.5-5.1) mmol/L Chloride 107 (98-107) mmol/L Carbon Dioxide 19 L (22-30) mmol/L Anion Gap 12.9 (5-15) MEQ/L BUN 4 L (7-17) mg/dL Creatinine 0.49 L (0.52-1.04) mg/dL Estimated GFR > 60.0 ML/MIN Glucose 149 H (74-106) mg/dL Calcium 9.1 (8.4-10.2) mg/dL Total Bilirubin 0.30 (0.2-1.3) mg/dL AST 16 (14-36) U/L ALT 12 (0-35) U/L Alkaline Phosphatase 94 (38-126) U/L Troponin I (0.000-0.034) ng/mL Serum Total Protein 6.7 (6.3-8.2) g/dL Albumin 3.6 (3.5-5.0) g/dL Urine Color (YELLOW) Urine Appearance (CLEAR) Urine pH (5-6) Ur Specific [place] (1.005-1.025) Urine Protein (Negative) Urine Ketones (NEGATIVE) Urine Blood (0-5) Fabio/ul Urine Nitrite (NEGATIVE) Urine Bilirubin (NEGATIVE) Urine Urobilinogen (0-1) mg/dL Ur Leukocyte Esterase (NEGATIVE) Urine WBC (Auto) (0-5) /HPF Urine RBC (Auto) (0-2) /HPF U Epithel Cells (Auto) (FEW) /HPF Urine Bacteria (Auto) (NEGATIVE) /HPF Urine Mucus (Auto) (NEGATIVE) /HPF Urine Culture Reflexed (NO) Urine Glucose (NEGATIVE) mg/dL Influenza Type A Ag (NEGATIVE) Influenza Type B Ag (NEGATIVE) - Progress Progress: improved Progress Note: 04/24/20 08:41 [facility] evaluated patient bedside. 04/24/20 11:36 04/24/20 11:37 ultrasound right lower extremity negative for DVT. D-dimer positive. The need for CT a chest was discussed with OB Dr. Brown who agreed that a CTA chest was indicated. Risks and benefits of obtaining a CTA chest versus not obtaining a CTA as were discussed with patient. She agreed to move forward with a CTA chest. Missing a pulmonary embolism could be potentially fatal to mother and therefore fetus. CTA chest negative for PE. Patient ambulated in our ED. o2 Sat was 97% specifically. Heart rate max 104. There was no symptoms or signs of dyspnea. Case discussed with patient's [facility] physician's nurse practitioner. They will see patient this week. Patient will call today to schedule an appointment. Patient's [facility] physician is Dr. Aldridge. Nurse practitioner caring for patient is Kristie. UA suggestive of UTI. Patient received a dose of Macrobid in our ED. A prescription for the same will be provided. Patient will receive an outpatient Covid test. This was conveyed to nurse practitioner who will follow up with patient. Discussed with : oTm Will see patient in: other Counseled pt/family regarding: lab results, diagnosis, need for follow-up, rad results - Departure Departure Disposition: Home Clinical Impression: UTI (urinary tract infection), Hiatal hernia Condition: Stable Critical Care Time: No Referrals: SKYLAR PARSON [Primary Care Provider] - Prescriptions: Nitrofurantoin Monohyd/M-Cryst [Macrobid 100 mg Capsule] 100 mg PO BID 7 Days #14 capsule
[2020-04-24 08:42] LABS: ALBUMIN 3.6 g/dL (3.5-5.0); ALKALINE PHOSPHATASE 94 U/L (38-126); ANION GAP 12.9 MEQ/L (5-15); BLOOD UREA NITROGEN 4 mg/dL (7-17); CHLORIDE 107 mmol/L (98-107); Calcium 9.1 mg/dL (8.4-10.2); Carbon Dioxide 19 mmol/L (22-30); Creatinine 1 0.49 mg/dL (0.52-1.04); EST GLOMERULAR FILTRATION RATE > 60.0 ML/MIN; Glucose 149 mg/dL (74-106); Potassium 3.8 mmol/L (3.5-5.1); SGOT/AST 16 U/L (14-36); SGPT/ALT 12 U/L (0-35); SODIUM 135 mmol/L (137-145); Total Protein 6.7 g/dL (6.3-8.2)
--- NOTE | 2020-04-24 08:46 | XRAY ---
Indication: Short of breath. Comparison: September 19, 2019. Portable chest less inflated and remains clear. Heart is not enlarged. Bony thorax intact. No new/acute findings.
--- NOTE | 2020-04-24 09:51 | XRAY ---
Indication: Right calf pain. Two-dimensional sonogram and color Doppler imaging of the major venous vessels of the right leg was performed. Comparison: None No thrombus seen in the examined deep venous vessels of the right leg including greater saphenous vein. Veins demonstrate normal compressibility. Venous waveforms are normal with and without augmentation. Targeted ultrasound of the calf is negative for focal solid/cystic mass or abnormal fluid collection. Impression: Right leg negative for DVT.
--- NOTE | 2020-04-24 09:53 | XRAY ---
Indication: viability. 2-dimensional limited OB ultrasound performed. Comparison: January 15, 2020. Again there is a single viable intrauterine currently in breech presentation. heart rate 147 BPM. BPD measures 5.87 cm corresponding to 24 weeks 0 days. HC measures 23.18 cm corresponding to 25 weeks 1 day. AC measures 21.25 cm corresponding to 25 weeks 5 days. FL measures 4.46 cm corresponding to 24 weeks 5 days. Impression: Again single viable intrauterine patency with mean gestational age 24 weeks 6 days. Normal progression of . No new/acute findings.
[2020-04-24 09:54] LABS: Appearance SLIGHTLY CLOUDY (CLEAR); Bacteria RARE /HPF (NEGATIVE); Bilirubin NEGATIVE (NEGATIVE); Blood NEGATIVE Ery/ul (0-5); Epithelial Cells FEW /HPF (FEW); Glucose 150 mg/dL (NEGATIVE); Ketones TRACE (NEGATIVE); Leukocyte Esterase NEGATIVE (NEGATIVE); Mucus SLIGHT /HPF (NEGATIVE); Nitrite NEGATIVE (NEGATIVE); Protein,Urine Dip NEGATIVE (Negative); RBC 0-2 /HPF (0-2); Specific Gravity 1.021 (1.005-1.025); Urobilinogen 2 mg/dL (0-1)
[2020-04-24 10:21] LABS: INFLUENZA A NEGATIVE (NEGATIVE); INFLUENZA B NEGATIVE (NEGATIVE)
--- NOTE | 2020-04-24 11:10 | XRAY ---
Indication: Short of breath and cough. 24 weeks 6 days . Right leg negative for DVT. Elevated d-dimer. Multiple contiguous axial images obtained through the chest using 80 cc Isovue 370 contrast and PE protocol. Comparison: None Ordering clinician Dr. Carmona was made aware of IV contrast administration in this patient. He requested exam be performed. Patient consent also obtained. There is adequate opacification of the pulmonary arteries to include the lobar and segmental branches. No pulmonary embolus. Heart is not enlarged. Aorta is normal in course and caliber. No pathologic mediastinal/hilar lymphadenopathy. Small hiatal hernia. Lungs are inflated and clear. Bony thorax intact. Limited upper abdomen demonstrates cholecystotomy clips. Impression: 1. Negative pulmonary embolus. No acute cardiopulmonary abnormalities. 2. Incidental small hiatal hernia.
[2020-04-24 11:21] VITALS: O2SAT 99
[2020-04-24] MEDS ORDERED: Macrobid 100MG Capsule PO ONE (11:37)
[2020-04-24] MEDS ORDERED: Macrobid 100MG Capsule ONE (11:37)
[2020-04-24 11:40] VITALS: BP 141/90; PULSE 89
== END 2020-04-24 11:54 | disposition home or self-care (01) ==
LOC: ED 07:43
DX: R05 Cough (principal); M79.604 Pain in right leg; R10.12 Left upper quadrant pain; N39.0 Urinary tract infection, site not specified; K44.9 Diaphragmatic hernia without obstruction or gangrene; Z3A.23 23 weeks gestation of pregnancy; I10 Essential (primary) hypertension; R00.0 Tachycardia, unspecified; R06.02 Shortness of breath
CPT/HCPCS: 36000; 36415; 71045; 71260; 76805; 80053; 81001; 84484; 85025; 85379; 87400; 93005; 93041; 93971; 94760; 99284; U0003; A9270-GY

== ENCOUNTER 2020-04-24 20:35 | Emergency (ER) | payer BC ==
[2020-04-24] MEDS ORDERED: VENTOLIN COMMON CANISTER IH STA (21:17)
[2020-04-24 21:39] VITALS: O2SAT 98
[2020-04-24] MEDS ORDERED: Ventolin Hfa MDI IH ONE ×2 (22:00→22:02)
--- NOTE | 2020-04-24 22:09 | ERPHSYRPT ---
- History of Present Illness Time Seen by Provider: 04/24/20 20:45 Source: patient Exam Limitations: no limitations Patient Subjective Stated Complaint: pt states while laying down her shortness of breath got worse tonight while laying down. Triage Nursing Assessment: pt alert and oriented, answers questions approp. pt ambulatory with steady gait noted. skin warm and dry. respirations nonlabored with lungs cta. perippheral pulses wnl. cap refill wnl. Physician History: Patient is a 19-year-old female presents to our ED for evaluation of shortness of breath while laying flat. Patient was in our ED earlier today for the same. Patient had a complete work-up including full laboratory work-up chest x-ray and CT scan. Work-up was negative for PE. After evaluation and observation in our ED patient symptoms resolved. She ambulated throughout our ED with normal oxygen saturations and did not have shortness of breath. Patient went home and went to lay down. As she was laying flat she felt short of breath and return to our ED. No chest pain. No nausea vomiting or diaphoresis. No fever. No leg swelling. Symptoms are mild to moderate in intensity. She voices no other complaints at this time. Patient states he has a history of asthma. However she has not used albuterol since she was a child. Patient is wondering whether or not this would help her symptoms. Timing/Duration: today Severity: moderate Modifying Factors: Improves With: other (Lying flat reproduces shortness of breath.) Associated Symptoms: denies symptoms Allergies/Adverse Reactions: morphine Adverse Reaction (Mild, Verified 04/24/20 20:56) Vomiting Hx Tetanus, Diphtheria Vaccination/Date Given: Yes (unknown) Hx Influenza Vaccination/Date Given: Yes Hx Pneumococcal Vaccination/Date Given: No Immunizations Up to Date: Yes Travel Risk - International Travel Have you traveled outside of the country in past 3 weeks: No - Coronavirus Screening Are you exhibiting any of the following symptoms?: Yes Symptoms: Cough: New Onset, Shortness of Breath Close contact with a COVID-19 positive Pt in past 14-21 Days: Yes - Review of Systems Constitutional: No Symptoms, No Fever, No Chills Eyes: No Symptoms Ears, Nose, & Throat: No Symptoms Respiratory: No Symptoms, No Cough, No Dyspnea Cardiac: No Symptoms, No Chest Pain, No Edema, No Syncope Abdominal/Gastrointestinal: No Symptoms, No Abdominal Pain, No Nausea, No Vomiting, No Diarrhea Genitourinary Symptoms: No Symptoms, No Dysuria Musculoskeletal: No Symptoms, No Back Pain, No Neck Pain Skin: No Symptoms, No Rash Neurological: No Symptoms, No Dizziness, No Focal Weakness, No Sensory Changes Psychological: No Symptoms Endocrine: No Symptoms Hematologic/Lymphatic: No Symptoms Immunological/Allergic: No Symptoms All Other Systems: Reviewed and Negative - Past Medical History Pertinent Past Medical History: Yes Neurological History: No Pertinent History ENT History: No Pertinent History Cardiac History: No Pertinent History Respiratory History: No Pertinent History Endocrine Medical History: No Pertinent History Musculoskeletal History: No Pertinent History GI Medical History: GERD History: No Pertinent History Psycho-Social History: Depression Female Reproductive Disorders: No Pertinent History Other Medical History: PMHX: DEPRESSION. SX HX CHOLECYSTECTOMY, TENDON RELEASE LEFT WRIST. - Past Surgical History Past Surgical History: Yes Neuro Surgical History: No Pertinent History Cardiac: No Pertinent History Respiratory: No Pertinent History Gastrointestinal: Cholecystectomy Genitourinary: No Pertinent History Musculoskeletal: Other Female Surgical History: No Pertinent History Other Surgical History: tendon release lt wrist. toenail removed. tendon released,egd - Social History Smoking Status: Former smoker How long have you smoked: 1yr Exposure to second hand smoke: Yes Drug Use: none Patient Lives Alone: No Significant Family History: no pertinent family hx - Female History Hx Last Menstrual Period: september Hx Now: Yes Expected Date of Delivery: 08/17/20 Gestational Age: 23 weeks 4 - Nursing Vital Signs Nursing Vital Signs: Initial Vital Signs Temperature 98.2 F 04/24/20 20:41 Pulse Rate 113 H 04/24/20 20:41 Respiratory Rate 18 04/24/20 20:41 Blood Pressure 155/98 04/24/20 20:41 O2 Sat by Pulse Oximetry 100 04/24/20 20:41 Pain Scale Pain Intensity 2 - Physical Exam General Appearance: no apparent distress, alert Eye Exam: PERRL/EOMI, eyes nml inspection Ears, Nose, Throat Exam: normal ENT inspection, TMs normal, pharynx normal, moist mucous membranes Neck Exam: normal inspection, non-tender, supple, full range of motion Respiratory Exam: normal breath sounds, lungs clear, airway intact, No respiratory distress, No diminished breath sounds, No accessory muscle use, No prolonged expirations Cardiovascular Exam: regular rate/rhythm, normal heart sounds, normal peripheral pulses Gastrointestinal/Abdomen Exam: soft, normal bowel sounds, No tenderness, No mass Back Exam: normal inspection, normal range of motion, No CVA tenderness, No vertebral tenderness Extremity Exam: normal inspection, normal range of motion, pelvis stable Neurologic Exam: alert, oriented x 3, cooperative, normal mood/affect, nml cerebellar function, nml station & gait, sensation nml, No motor deficits Skin Exam: normal color, warm, dry, No rash Lymphatic Exam: No adenopathy SpO2 Interpretation: normal SpO2: 98 O2 Delivery: Room Air - Course Nursing assessment & vital signs reviewed: Yes Ordered Tests: Active Orders 24 hr Category Date Time Status Respiratory Therapy Assessment DAILY RT 04/24/20 21:37 Completed Medication Summary Discontinued Medications Generic Name Dose Route Start Last Admin Trade Name Freq PRN Reason Stop Dose Admin Albuterol Sulfate 4 puff 04/24/20 21:17 04/24/20 21:34 Ventolin Common Canister IH 04/24/20 21:18 4 puff ONCE STA Administration Albuterol Sulfate 8 gm 04/24/20 22:00 04/24/20 22:07 Ventolin Hfa Mdi IH 04/24/20 22:01 8 gm ONCE ONE Administration - Progress Progress: improved Progress Note: 04/24/20 22:[address] Brown on-call [employer]ILD[employer] physician. There is no indication to repeat the work-up that was done earlier in the day. Patient was treated with albuterol inhaler. Patient reassessed. Symptoms significantly improved. Patient will be discharged home on albuterol inhaler. We advised patient to follow-up with her [employer]ILD[employer]ATION [employer] physician as scheduled. Patient should have a referral to pulmonology for evaluation of her shortness of breath. Patient will forward this information to her [employer]ILD[employer] physician for referral. Patient states she is ready for discharge. Discussed with : Tom Counseled pt/family regarding: lab results, diagnosis, need for follow-up, rad results - Departure Departure Disposition: Home Clinical Impression: Bronchitis Condition: Stable Critical Care Time: No Referrals: SKYLAR PARSON [Primary Care Provider] - Additional Instructions: Please follow-up with your [employer]ILDING [employer]ATION INST[employer] physician as scheduled. You will likely need a referral to a furnace reliner to further assess your shortness of breath. This referral will come from your [employer]ILDING [employer]ATION INST[employer]ER physician or her primary care doctor. Discharge/Care Plan JOESPH TRINH was seen on 04/24/20 in the Emergency Room. The patient was counseled regarding Diagnosis,Lab results, Imaging studies, need for follow up and when to return to the Emergency Room. Prescriptions given: Discharge Note I have spoken with the patient and/or caregivers. I have explained the patient's condition, diagnosis and treatment plan based on the information available to me at this time. I have answered the patient's and/or caregiver's questions and addressed any concerns. The patient and/or caregivers have as good understanding of the patient's diagnosis, condition and treatment plan as can be expected at this point. The vital signs have been stable. The patient's condition is stable and appropriate for discharge from the emergency department. The patient will pursue further outpatient evaluation with the primary care physician or other designated or consulting physician as outlined in the discharge instructions. The patient and/or caregivers are agreeable to this plan of care and follow-up instructions have been explained in detail. The patient and/or caregivers have received these instruction. The patient/and or caregivers are aware that any significant change in condition or worsening of symptoms should prompt an immediate return to this or the closest emergency department or call 911.
[2020-04-24 22:12] VITALS: BP 130/77; PULSE 107
== END 2020-04-24 22:19 | disposition home or self-care (01) ==
LOC: ED 20:35
DX: R06.02 Shortness of breath (principal); J40 Bronchitis, not specified as acute or chronic; Z3A.23 23 weeks gestation of pregnancy
CPT/HCPCS: 94640; 99283; A9270-GY

== ENCOUNTER 2020-05-06 15:00 | Observation (INO) | payer BC ==
[2020-05-06 17:22] LABS: Appearance CLOUDY (CLEAR); Bacteria RARE /HPF (NEGATIVE); Bilirubin NEGATIVE (NEGATIVE); Blood NEGATIVE Ery/ul (0-5); Epithelial Cells FEW /HPF (FEW); Glucose NEGATIVE (NEGATIVE); Ketones TRACE (NEGATIVE); Leukocyte Esterase NEGATIVE (NEGATIVE); Mucus MANY /HPF (NEGATIVE); Nitrite NEGATIVE (NEGATIVE); Protein,Urine Dip 30 (Negative); Specific Gravity 1.026 (1.005-1.025); Urobilinogen 2 mg/dL (0-1)
[2020-05-06] MEDS ORDERED: Lactated Ringers 1,000 ML IV ONE ×2 (17:45→19:26)
[2020-05-06 18:06] LABS: Creatinine, Urine Random 301.6 mg/dl
[2020-05-06 18:45] LABS: Absolute Neutrophil Ct (ANC) 10.75 (1.4-6.9); BASOPHIL % 0.1 % (0.0-0.4); Basophil (Absolute #) 0.02 (0-0.4); Eosinophil % 1.3 % (0.00-5.0); Eosinophil (Absolute #) 0.19 (0-0.5); Hematocrit 36.2 % (35-47); Hemoglobin 11.4 gm/dl (12.0-16.0); Lymphocyte (Absolute #) 2.31 (1.0-4.6); Lymphocytes % 16.3 % (24.0-44.0); Mean Cell Volume 85.6 fl (78-100); Mean Corpuscular Hgb Concent. 31.5 g/dl (32-36); Mean Platelet Volume 10.3 fl (7.5-11.0); Monocyte (Absolute #) 0.89 (0.0-1.3); Monocytes % 6.3 % (0.0-12.0); Platelet Count 374 K/mm3 (150-450); Red Blood Count 4.23 M/mm3 (4.1-5.4); Red Cell Distribution Width 12.7 % (11.5-14.0); White Blood Count 14.2 K/mm3 (4.0-10.5)
[2020-05-06 18:50] LABS: ALBUMIN 3.8 g/dL (3.5-5.0); ALKALINE PHOSPHATASE 112 U/L (38-126); ANION GAP 13.8 MEQ/L (5-15); BLOOD UREA NITROGEN 6 mg/dL (7-17); CHLORIDE 105 mmol/L (98-107); Calcium 9.2 mg/dL (8.4-10.2); Carbon Dioxide 21 mmol/L (22-30); Creatinine 1 0.62 mg/dL (0.52-1.04); EST GLOMERULAR FILTRATION RATE > 60.0 ML/MIN; Glucose 104 mg/dL (74-106); Potassium 3.6 mmol/L (3.5-5.1); SGOT/AST 19 U/L (14-36); SGPT/ALT 13 U/L (0-35); SODIUM 136 mmol/L (137-145); Total Protein 7.1 g/dL (6.3-8.2)
[2020-05-06] MEDS ORDERED: TYLENOL 325 MG PO PRN (19:03)
[2020-05-06] MEDS ORDERED: Nubain 10 MG/ML IV PRN (19:07)
--- NOTE | 2020-05-06 19:22 | PCM.SSS ---
History of Present Illness - Chief Complaint Chief Complaint: back pain History of Present Illness: is a 19 year old female seen in [facility] for evaluation of cramping. Patient reports that she started with cramping around 4 am this am. Patient reports that she took some tylenol and that improved her symptoms however she reports that she started having cramping again so came in to the hospital to be evaluated. Patient reports that she continues to have pain/cramping. Patient reports recent ER visit for SOB and lower extremity pain. She was evaluated for DVT and her studies were neg. She reports she was given an inhaler due to SOB. Patient reports that she has been told that her ob Dr is keeping an eye on her for pre-eclampsia due to some BP elevations and some protein in her urine during routine clinic visits. Medications & Allergies Home Medications: Home Medication List Patient Own Med [Patient Own Medication] 1 each IH UD 05/06/20 [History Confirmed 05/06/20] Vits W-Ca,Fe,FA(<1Mg) [] 1 tablet PO DAILY 05/06/20 [History Confirmed 05/06/20] Cefdinir 300 mg PO Q12H 2 Days #4 capsule 05/07/20 [Rx] Allergies/Adverse Reactions: Allergies Allergy/AdvReac Type Severity Reaction Status Date / Time morphine AdvReac Mild Vomiting Verified 04/24/20 20:56 - Past Medical History Past Medical History: Yes Neurological History: No Pertinent History ENT History: No Pertinent History Cardiac History: No Pertinent History Respiratory History: No Pertinent History Endocrine Medical History: No Pertinent History Musculoskelatal History: No Pertinent History GI Medical History: GERD History: No Pertinent History Pyscho-Social History: Depression Reproductive Disorders: No Pertinent History Comment: PMHX: DEPRESSION. SX HX CHOLECYSTECTOMY, TENDON RELEASE LEFT WRIST. - Female History Expected Date of Delivery: 08/16/20 - Past Surgical History Past Surgical History: Yes Neuro Surgical History: No Pertinent History Cardiac History: No Pertinent History Respiratory Surgery: No Pertinent History GI Surgical History: Cholecystectomy Genitourinary Surgical Hx: No Pertinent History Musculskeletal Surgical Hx: Other Female Surgical History: No Pertinent History Other Surgical History: tendon release lt wrist. toenail removed. tendon released,egd - Social History Smoking Status: Never smoker How long have you smoked: 1yr Exposure to second hand smoke: Yes Alcohol: None Drug Use: none Significant Family History: no pertinent family hx - Physical Exam Vital Signs: Vital Signs - 24 hr Temp Pulse Resp BP BP 05/06/20 17:30 136/67 05/06/20 15:22 98.6 F 106 H 18 136/83 05/06/20 15:20 98.6 F 106 H 18 83 Results - Labs Lab/Micro Results: Lab Results-Last 24 Hours 05/06/20 05/06/20 05/06/20 Range/Units 17:00 17:13 18:27 WBC 14.2 H (4.0-10.5) K/mm3 RBC 4.23 (4.1-5.4) M/mm3 Hgb 11.4 L (12.0-16.0) gm/dl Hct 36.2 (35-47) % MCV 85.6 (78-100) fl MCH 27.0 (26-32) pg MCHC 31.5 L (32-36) g/dl RDW 12.7 (11.5-14.0) % Plt Count 374 (150-450) K/mm3 MPV 10.3 (7.5-11.0) fl Gran % 76.0 H (36.0-66.0) % Eos # (Auto) 0.19 (0-0.5) Absolute Lymphs (auto) 2.31 (1.0-4.6) Absolute Monos (auto) 0.89 (0.0-1.3) Lymphocytes % 16.3 L (24.0-44.0) % Monocytes % 6.3 (0.0-12.0) % Eosinophils % 1.3 (0.00-5.0) % Basophils % 0.1 (0.0-0.4) % Absolute Granulocytes 10.75 H (1.4-6.9) Basophils # 0.02 (0-0.4) Sodium (137-145) mmol/L Potassium (3.5-5.1) mmol/L Chloride (98-107) mmol/L Carbon Dioxide (22-30) mmol/L Anion Gap (5-15) MEQ/L BUN (7-17) mg/dL Creatinine (0.52-1.04) mg/dL Estimated GFR ML/MIN Glucose (74-106) mg/dL Uric Acid (2.6-6.0) mg/dL Calcium (8.4-10.2) mg/dL Total Bilirubin (0.2-1.3) mg/dL AST (14-36) U/L ALT (0-35) U/L Alkaline Phosphatase (38-126) U/L Serum Total Protein (6.3-8.2) g/dL Albumin (3.5-5.0) g/dL Urine Color VICKY (YELLOW) Urine Appearance CLOUDY (CLEAR) Urine pH 5.0 (5-6) Ur Specific [place] 1.026 (1.005-1.025) Urine Protein 30 (Negative) Urine Ketones TRACE (NEGATIVE) Urine Blood NEGATIVE (0-5) Fabio/ul Urine Nitrite NEGATIVE (NEGATIVE) Urine Bilirubin NEGATIVE (NEGATIVE) Urine Urobilinogen 2 (0-1) mg/dL Ur Leukocyte Esterase NEGATIVE (NEGATIVE) Urine WBC (Auto) 11-15 (0-5) /HPF Urine RBC (Auto) 6-10 (0-2) /HPF U Epithel Cells (Auto) FEW (FEW) /HPF Urine Bacteria (Auto) RARE (NEGATIVE) /HPF Calcium Oxalate Crystal 6-10 (NEGATIVE) /HPF Urine Mucus (Auto) MANY (NEGATIVE) /HPF Urine Culture Reflexed YES (NO) Ur Random Creatinine 301.6 mg/dl U Random Total Protein 7.0 (<12) mg/dl U [place] Prot/Creat Ratio 0.02 (0.00-0.15) mg/mg Urine Glucose NEGATIVE (NEGATIVE) mg/dL 05/06/20 05/06/20 Range/Units 18:27 18:27 WBC (4.0-10.5) K/mm3 RBC (4.1-5.4) M/mm3 Hgb (12.0-16.0) gm/dl Hct (35-47) % MCV (78-100) fl MCH (26-32) pg MCHC (32-36) g/dl RDW (11.5-14.0) % Plt Count (150-450) K/mm3 MPV (7.5-11.0) fl Gran % (36.0-66.0) % Eos # (Auto) (0-0.5) Absolute Lymphs (auto) (1.0-4.6) Absolute Monos (auto) (0.0-1.3) Lymphocytes % (24.0-44.0) % Monocytes % (0.0-12.0) % Eosinophils % (0.00-5.0) % Basophils % (0.0-0.4) % Absolute Granulocytes (1.4-6.9) Basophils # (0-0.4) Sodium 136 L (137-145) mmol/L Potassium 3.6 (3.5-5.1) mmol/L Chloride 105 (98-107) mmol/L Carbon Dioxide 21 L (22-30) mmol/L Anion Gap 13.8 (5-15) MEQ/L BUN 6 L (7-17) mg/dL Creatinine 0.62 (0.52-1.04) mg/dL Estimated GFR > 60.0 ML/MIN Glucose 104 (74-106) mg/dL Uric Acid 4.3 (2.6-6.0) mg/dL Calcium 9.2 (8.4-10.2) mg/dL Total Bilirubin 0.20 (0.2-1.3) mg/dL AST 19 (14-36) U/L ALT 13 (0-35) U/L Alkaline Phosphatase 112 (38-126) U/L Serum Total Protein 7.1 (6.3-8.2) g/dL Albumin 3.8 (3.5-5.0) g/dL Urine Color (YELLOW) Urine Appearance (CLEAR) Urine pH (5-6) Ur Specific [place] (1.005-1.025) Urine Protein (Negative) Urine Ketones (NEGATIVE) Urine Blood (0-5) Fabio/ul Urine Nitrite (NEGATIVE) Urine Bilirubin (NEGATIVE) Urine Urobilinogen (0-1) mg/dL Ur Leukocyte Esterase (NEGATIVE) Urine WBC (Auto) (0-5) /HPF Urine RBC (Auto) (0-2) /HPF U Epithel Cells (Auto) (FEW) /HPF Urine Bacteria (Auto) (NEGATIVE) /HPF Calcium Oxalate Crystal (NEGATIVE) /HPF Urine Mucus (Auto) (NEGATIVE) /HPF Urine Culture Reflexed (NO) Ur Random Creatinine mg/dl U Random Total Protein (<12) mg/dl U [place] Prot/Creat Ratio (0.00-0.15) mg/mg Urine Glucose (NEGATIVE) mg/dL Hospital Summary - Vitals & Intake/Output Vital Signs: Vital Signs Temperature 98.6 F 05/06/20 15:22 Pulse Rate 106 H 05/06/20 15:22 Respiratory Rate 18 05/06/20 15:22 Blood Pressure 136/67 05/06/20 17:30 O2 Sat by Pulse Oximetry Intake & Output: Intake & Output 05/04/20 05/05/20 05/06/20 05/07/20 11:59 11:59 11:59 11:59 Intake Total 1500 Balance 1500 Weight 128.367 kg - Lab Result Diagrams: 05/06/20 18:27 05/06/20 18:27 Lab Results-Last 24 Hrs: Lab Results-Last 24 Hours 05/06/20 05/06/20 05/06/20 Range/Units 17:00 17:13 18:27 WBC 14.2 H (4.0-10.5) K/mm3 RBC 4.23 (4.1-5.4) M/mm3 Hgb 11.4 L (12.0-16.0) gm/dl Hct 36.2 (35-47) % MCV 85.6 (78-100) fl MCH 27.0 (26-32) pg MCHC 31.5 L (32-36) g/dl RDW 12.7 (11.5-14.0) % Plt Count 374 (150-450) K/mm3 MPV 10.3 (7.5-11.0) fl Gran % 76.0 H (36.0-66.0) % Eos # (Auto) 0.19 (0-0.5) Absolute Lymphs (auto) 2.31 (1.0-4.6) Absolute Monos (auto) 0.89 (0.0-1.3) Lymphocytes % 16.3 L (24.0-44.0) % Monocytes % 6.3 (0.0-12.0) % Eosinophils % 1.3 (0.00-5.0) % Basophils % 0.1 (0.0-0.4) % Absolute Granulocytes 10.75 H (1.4-6.9) Basophils # 0.02 (0-0.4) Sodium (137-145) mmol/L Potassium (3.5-5.1) mmol/L Chloride (98-107) mmol/L Carbon Dioxide (22-30) mmol/L Anion Gap (5-15) MEQ/L BUN (7-17) mg/dL Creatinine (0.52-1.04) mg/dL Estimated GFR ML/MIN Glucose (74-106) mg/dL Uric Acid (2.6-6.0) mg/dL Calcium (8.4-10.2) mg/dL Total Bilirubin (0.2-1.3) mg/dL AST (14-36) U/L ALT (0-35) U/L Alkaline Phosphatase (38-126) U/L Serum Total Protein (6.3-8.2) g/dL Albumin (3.5-5.0) g/dL Urine Color VICKY (YELLOW) Urine Appearance CLOUDY (CLEAR) Urine pH 5.0 (5-6) Ur Specific [place] 1.026 (1.005-1.025) Urine Protein 30 (Negative) Urine Ketones TRACE (NEGATIVE) Urine Blood NEGATIVE (0-5) Fabio/ul Urine Nitrite NEGATIVE (NEGATIVE) Urine Bilirubin NEGATIVE (NEGATIVE) Urine Urobilinogen 2 (0-1) mg/dL Ur Leukocyte Esterase NEGATIVE (NEGATIVE) Urine WBC (Auto) 11-15 (0-5) /HPF Urine RBC (Auto) 6-10 (0-2) /HPF U Epithel Cells (Auto) FEW (FEW) /HPF Urine Bacteria (Auto) RARE (NEGATIVE) /HPF Calcium Oxalate Crystal 6-10 (NEGATIVE) /HPF Urine Mucus (Auto) MANY (NEGATIVE) /HPF Urine Culture Reflexed YES (NO) Ur Random Creatinine 301.6 mg/dl U Random Total Protein 7.0 (<12) mg/dl U [place] Prot/Creat Ratio 0.02 (0.00-0.15) mg/mg Urine Glucose NEGATIVE (NEGATIVE) mg/dL 05/06/20 05/06/20 Range/Units 18:27 18:27 WBC (4.0-10.5) K/mm3 RBC (4.1-5.4) M/mm3 Hgb (12.0-16.0) gm/dl Hct (35-47) % MCV (78-100) fl MCH (26-32) pg MCHC (32-36) g/dl RDW (11.5-14.0) % Plt Count (150-450) K/mm3 MPV (7.5-11.0) fl Gran % (36.0-66.0) % Eos # (Auto) (0-0.5) Absolute Lymphs (auto) (1.0-4.6) Absolute Monos (auto) (0.0-1.3) Lymphocytes % (24.0-44.0) % Monocytes % (0.0-12.0) % Eosinophils % (0.00-5.0) % Basophils % (0.0-0.4) % Absolute Granulocytes (1.4-6.9) Basophils # (0-0.4) Sodium 136 L (137-145) mmol/L Potassium 3.6 (3.5-5.1) mmol/L Chloride 105 (98-107) mmol/L Carbon Dioxide 21 L (22-30) mmol/L Anion Gap 13.8 (5-15) MEQ/L BUN 6 L (7-17) mg/dL Creatinine 0.62 (0.52-1.04) mg/dL Estimated GFR > 60.0 ML/MIN Glucose 104 (74-106) mg/dL Uric Acid 4.3 (2.6-6.0) mg/dL Calcium 9.2 (8.4-10.2) mg/dL Total Bilirubin 0.20 (0.2-1.3) mg/dL AST 19 (14-36) U/L ALT 13 (0-35) U/L Alkaline Phosphatase 112 (38-126) U/L Serum Total Protein 7.1 (6.3-8.2) g/dL Albumin 3.8 (3.5-5.0) g/dL Urine Color (YELLOW) Urine Appearance (CLEAR) Urine pH (5-6) Ur Specific [place] (1.005-1.025) Urine Protein (Negative) Urine Ketones (NEGATIVE) Urine Blood (0-5) Fabio/ul Urine Nitrite (NEGATIVE) Urine Bilirubin (NEGATIVE) Urine Urobilinogen (0-1) mg/dL Ur Leukocyte Esterase (NEGATIVE) Urine WBC (Auto) (0-5) /HPF Urine RBC (Auto) (0-2) /HPF U Epithel Cells (Auto) (FEW) /HPF Urine Bacteria (Auto) (NEGATIVE) /HPF Calcium Oxalate Crystal (NEGATIVE) /HPF Urine Mucus (Auto) (NEGATIVE) /HPF Urine Culture Reflexed (NO) Ur Random Creatinine mg/dl U Random Total Protein (<12) mg/dl U [place] Prot/Creat Ratio (0.00-0.15) mg/mg Urine Glucose (NEGATIVE) mg/dL - Discharge Disposition: Home, Self-Care Condition: Stable Prescriptions: New Cefdinir 300 mg PO Q12H 2 Days #4 capsule Continue Vits W-Ca,Fe,FA(<1Mg) [] 1 tablet PO DAILY Patient Own Med [Patient Own Medication] 1 each UD Additional Instructions: Patient will need to follow up with ob this week. Follow up with: SKYLAR PARSON [Primary Care Provider] -
[2020-05-06] MEDS ORDERED: ECOTRIN 81 MG PO SCH (19:41)
[2020-05-06] MEDS: Lactated Ringers 1,000 ML IV SCH (21:18)
[2020-05-06] MEDS ORDERED: ROCEPHIN 1 Gm-D5w 50 ml Bag** 1 G/50 ML IVPB IV ONE (21:28)
[2020-05-06] MEDS: ROCEPHIN 1 Gm-D5w 50 ml Bag** 1 G/50 ML IVPB IV SCH ×3 (21:36→21:56)
[2020-05-06 22:01] VITALS: O2SAT 97
[2020-05-07] MEDS: Lactated Ringers 1,000 ML IV SCH (05:46)
[2020-05-07 06:11] VITALS: BP 122/68; PULSE 82
[2020-05-07] MEDS ORDERED: ROCEPHIN 1 Gm-D5w 50 ml Bag** 1 G/50 ML IVPB IV SCH (22:00)
== END 2020-05-07 09:25 | disposition home or self-care (01) ==
LOC: OB 15:00
PROVIDERS: ADMIT Family Medicine; ATTEND Family Medicine
DX: O26.892 Other specified pregnancy related conditions, second trimester (principal); Z3A.25 25 weeks gestation of pregnancy; M54.9 Dorsalgia, unspecified
CPT/HCPCS: 36415; 80053; 81001; 82570; 84156; 84550; 85025; 87086; J0696; A9270-GY

== ENCOUNTER 2020-10-24 16:08 | Emergency (ER) | payer BC, MEDICAID ==
[2020-10-24 16:15] VITALS: O2SAT 99
--- NOTE | 2020-10-24 16:47 | XRAY ---
Indication: Pain following fall. Comparison: August 28, 2018. 3 view right hand demonstrates new nondisplaced 5th metacarpal head comminuted fracture with soft tissue swelling. No bony, articular, or soft tissue abnormalities.
--- NOTE | 2020-10-24 16:50 | ERPHSYRPT ---
- History of Present Illness Time Seen by Provider: 10/24/20 16:25 Source: patient Exam Limitations: no limitations Patient Subjective Stated Complaint: pt fell over dog and landed on a bouncer , co pain to right hand Triage Nursing Assessment: pt alert, walked in, resp easy, skin w/d/p. has swelling to right hand , strong radial pulse Physician History: Patient is a 20-year-old white female who fell over a dog striking her hand on a table suffering an injury to her right hand. She denies any loss of consciousness or any other injury or any others painful site. Occurred: just prior to arrival Method of Injury: direct blow Severity of Pain-Max: moderate Severity of Pain-Current: moderate Extremities Pain Location: hand: right, 5th finger: right Modifying Factors: Improves With: movement Associated Symptoms: none Allergies/Adverse Reactions: morphine Adverse Reaction (Mild, Verified 10/24/20 16:16) Vomiting Home Medications: Bupropion HCl Xl 150 mg [Wellbutrin XL 150 MG] 1 ea DAILY 10/24/20 [History] Hx Tetanus, Diphtheria Vaccination/Date Given: Yes (unknown) Hx Influenza Vaccination/Date Given: No Hx Pneumococcal Vaccination/Date Given: No Immunizations Up to Date: Yes Travel Risk - International Travel Have you traveled outside of the country in past 3 weeks: No - Coronavirus Screening Are you exhibiting any of the following symptoms?: No Close contact with a COVID-19 positive Pt in past 14-21 Days: No - Vaccine Status Have you recieved a Covid-19 vaccination: No - Review of Systems Constitutional: No Fever, No Chills Eyes: No Symptoms Ears, Nose, & Throat: No Symptoms Respiratory: No Cough, No Dyspnea Cardiac: No Chest Pain, No Edema, No Syncope Abdominal/Gastrointestinal: No Abdominal Pain, No Nausea, No Vomiting, No Diarrhea Genitourinary Symptoms: No Dysuria Musculoskeletal: Other (Swelling and tenderness over the fifth right metacarpal), No Back Pain, No Neck Pain Skin: No Rash Neurological: No Dizziness, No Focal Weakness, No Sensory Changes Psychological: No Symptoms Endocrine: No Symptoms All Other Systems: Reviewed and Negative - Past Medical History Pertinent Past Medical History: No Neurological History: No Pertinent History ENT History: No Pertinent History Cardiac History: No Pertinent History Respiratory History: No Pertinent History Endocrine Medical History: No Pertinent History Musculoskeletal History: No Pertinent History GI Medical History: GERD History: No Pertinent History Psycho-Social History: Depression Female Reproductive Disorders: No Pertinent History Other Medical History: PMHX: DEPRESSION. SX HX CHOLECYSTECTOMY, TENDON RELEASE LEFT WRIST. - Past Surgical History Past Surgical History: Yes Neuro Surgical History: No Pertinent History Cardiac: No Pertinent History Respiratory: No Pertinent History Gastrointestinal: Cholecystectomy Genitourinary: No Pertinent History Musculoskeletal: Other Female Surgical History: Section Other Surgical History: tendon release lt wrist. toenail removed. tendon released,egd - Social History Smoking Status: Never smoker How long have you smoked: 1yr Exposure to second hand smoke: No Drug Use: none Patient Lives Alone: No Significant Family History: no pertinent family hx - Female History Hx Last Menstrual Period: october 04 2019 Hx Now: No - Nursing Vital Signs Nursing Vital Signs: Initial Vital Signs Temperature 98.1 F 10/24/20 16:10 Pulse Rate 70 10/24/20 16:10 Respiratory Rate 18 10/24/20 16:10 Blood Pressure 154/75 10/24/20 16:10 O2 Sat by Pulse Oximetry 99 10/24/20 16:10 Pain Scale Pain Intensity 9 - Physical Exam General Appearance: mild distress, alert Eyes, Ears, Nose, Throat Exam: moist mucous membranes Neck Exam: non-tender, supple Cardiovascular/Respiratory Exam: chest non-tender, normal breath sounds, regular rate/rhythm, no respiratory distress Abdominal Exam: non-tender, No guarding Back Exam: normal inspection, No vertebral tenderness Hand Exam: bone tenderness (For the distal right fifth metacarpal), limited ROM, soft tissue tenderness, stiffness Neuro/Tendon Exam: normal sensation, normal motor functions Mental Status Exam: alert, oriented x 3, cooperative Skin Exam: normal color, warm, dry SpO2 Interpretation: normal SpO2: 99 O2 Delivery: Room Air Procedures - Splinting Time of Procedure: 16:50 Location of Splint: Hand Type of Splint: Other (Gutter splint) Splint Applied By: ED Nurse Pre-Proc Neuro Vasc Exam: normal Post-Proc Neuro Vasc Exam: neurovascular intact - Course Nursing assessment & vital signs reviewed: Yes - Radiology Exams Hand X-ray Interpretation: Interpreted by me, Other (Comminuted fracture distal end of the right fifth metacarpal) Ordered Tests: Active Orders 24 hr Category Date Time Status Cold Application STAT Care 10/24/20 16:14 Active HAND (MINIMUM 3 VIEWS) Stat Exams 10/24/20 16:16 Taken - Progress Progress: improved - Departure Departure Disposition: Home Clinical Impression: Fracture of metacarpal of right hand, closed Condition: Stable Critical Care Time: No Referrals: SKYLAR PARSON [Primary Care Provider] - Instructions: Boxer's Fracture (DC) Additional Instructions: Follow-up with the Ortho clinic Prescriptions: Hydrocodone/Acetaminophen [Hydrocodone-Acetamin 5-325 mg] 1 tab PO Q6HPRN PRN 3 Days #12 tablet MDD 4 PRN Reason: Pain
[2020-10-24 17:09] VITALS: BP 146/88; PULSE 60
== END 2020-10-24 17:14 | disposition home or self-care (01) ==
LOC: ED 16:08
DX: S62.306A Unspecified fracture of fifth metacarpal bone, right hand, initial encounter for closed fracture (principal); W18.31XA Fall on same level due to stepping on an object, initial encounter; Y93.K1 Activity, walking an animal; Y92.89 Other specified places as the place of occurrence of the external cause; M79.641 Pain in right hand
CPT/HCPCS: 29126; 73130; 99283

== ENCOUNTER 2020-11-11 20:34 | Emergency (ER) | payer MEDICAID ==
--- NOTE | 2020-11-11 21:15 | ERPHSYRPT ---
- History of Present Illness Time Seen by Provider: 11/11/20 21:00 Historian: patient Exam Limitations: no limitations Physician History: This is a 20-year-old obese white female who presents with 1 to 1-1/2-hour sudden onset of bilateral infra umbilical abdominal pain. She has no associated nausea vomiting or diarrhea. She does not have a cough she does not have jenifer rtness of breath. Patient states she is never had this before. She does not have flank pain. She does not have hematuria or dysuria. At this time, the patient does not want any medication for pain control. Patient has recurrent, chronic abdominal pain issues. He does have a history of depression. She is status post cholecystectomy. Patient's primary care provider is nurse practitioner Asha David. Timing/Duration: today Activities at Onset: none Quality: aching, cramping Abdominal Pain Onset Location: periumbilical Pain Radiation: no radiation Severity of Pain-Max: mild (To moderate) Severity of Pain-Current: mild Modifying Factors: Improves With: nothing Associated Symptoms: denies symptoms Previous symptoms: same symptoms as today, no recent treatment Allergies/Adverse Reactions: morphine Adverse Reaction (Mild, Verified 11/11/20 21:16) Vomiting Home Medications: Bupropion HCl Xl 150 mg [Wellbutrin XL 150 MG] 1 ea PO HS 10/24/20 [History] Hx Tetanus, Diphtheria Vaccination/Date Given: Yes (unknown) Hx Influenza Vaccination/Date Given: No Hx Pneumococcal Vaccination/Date Given: No Travel Risk - International Travel Have you traveled outside of the country in past 3 weeks: No - Coronavirus Screening Are you exhibiting any of the following symptoms?: No Close contact with a COVID-19 positive Pt in past 14-21 Days: No - Vaccine Status Have you recieved a Covid-19 vaccination: No - Review of Systems Constitutional: No Symptoms Eyes: No Symptoms Ears, Nose, & Throat: No Symptoms Respiratory: No Symptoms Cardiac: No Symptoms Abdominal/Gastrointestinal: Abdominal Pain, No Nausea, No Vomiting, No Diarrhea Genitourinary Symptoms: No Symptoms Musculoskeletal: No Symptoms Skin: No Symptoms Neurological: No Symptoms Psychological: No Symptoms Endocrine: No Symptoms Hematologic/Lymphatic: No Symptoms Immunological/Allergic: No Symptoms All Other Systems: Reviewed and Negative - Past Medical History Pertinent Past Medical History: No Neurological History: No Pertinent History ENT History: No Pertinent History Cardiac History: No Pertinent History Respiratory History: No Pertinent History Endocrine Medical History: No Pertinent History Musculoskeletal History: No Pertinent History GI Medical History: GERD History: No Pertinent History Psycho-Social History: Depression Female Reproductive Disorders: No Pertinent History Other Medical History: PMHX: DEPRESSION. SX HX CHOLECYSTECTOMY, TENDON RELEASE LEFT WRIST. - Past Surgical History Past Surgical History: Yes Neuro Surgical History: No Pertinent History Cardiac: No Pertinent History Respiratory: No Pertinent History Gastrointestinal: Cholecystectomy Genitourinary: No Pertinent History Musculoskeletal: Other Female Surgical History: Section Other Surgical History: tendon release lt wrist. toenail removed. tendon released,egd - Social History Smoking Status: Never smoker How long have you smoked: 1yr Exposure to second hand smoke: No Drug Use: none Patient Lives Alone: No Significant Family History: no pertinent family hx - Nursing Vital Signs Nursing Vital Signs: Initial Vital Signs Temperature 97.9 F 11/11/20 21:08 Pulse Rate 95 H 11/11/20 21:08 Respiratory Rate 18 11/11/20 21:08 Blood Pressure 155/79 11/11/20 21:08 O2 Sat by Pulse Oximetry 97 11/11/20 21:08 Pain Scale Pain Intensity 10 - Physical Exam General Appearance: no apparent distress, alert, anxiety, obese Eye Exam: PERRL/EOMI, eyes nml inspection Ears, Nose, Throat Exam: normal ENT inspection, moist mucous membranes Neck Exam: normal inspection, non-tender, supple, full range of motion Respiratory Exam: normal breath sounds, lungs clear, airway intact, No chest tenderness, No respiratory distress Cardiovascular Exam: regular rate/rhythm, normal heart sounds, normal peripheral pulses Gastrointestinal/Abdomen Exam: soft, normal bowel sounds, tenderness (Bilateral lower quadrants.), No guarding, No rebound Pelvic Exam: not done Rectal Exam: not done Back Exam: normal inspection, normal range of motion, No CVA tenderness, No vertebral tenderness Extremity Exam: normal inspection, normal range of motion, pelvis stable Neurologic Exam: alert, oriented x 3, cooperative, 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 nml as tested, normal mood/affect, nml cerebellar function, nml station & gait, sensation nml Skin Exam: normal color, warm, dry Lymphatic Exam: No adenopathy SpO2 Interpretation: normal O2 Delivery: Room Air - Course Nursing assessment & vital signs reviewed: Yes Ordered Tests: Active Orders 24 hr Category Date Time Status IV Insertion STAT Care 11/11/20 21:30 Active ABDOMEN AND PELVIS W/0 CONTRAS [CT] Stat Exams 11/12/20 00:30 Taken AMYLASE Stat Lab 11/11/20 21:45 Completed CBC W DIFF Stat Lab 11/11/20 21:45 Completed CMP Stat Lab 11/11/20 21:45 Completed CULTURE,URINE Stat Lab 11/11/20 21:45 Received HCG,QUALITATIVE URINE Stat Lab 11/11/20 21:45 Completed LIPASE Stat Lab 11/11/20 21:45 Completed Lactic Acid Stat Lab 11/11/20 21:30 Completed UA W/RFX UR CULTURE Stat Lab 11/11/20 21:45 Completed Lab/Rad Data: Laboratory Result Diagrams 11/11/20 21:45 11/11/20 21:45 Laboratory Results 11/11/20 11/11/20 11/11/20 Range/Units 21:45 21:45 21:45 WBC 9.3 (4.0-10.5) K/mm3 RBC 4.58 (4.1-5.4) M/mm3 Hgb 12.5 (12.0-16.0) gm/dl Hct 38.0 (35-47) % MCV 83.0 (78-100) fl MCH 27.3 (26-32) pg MCHC 32.9 (32-36) g/dl RDW 14.7 H (11.5-14.0) % Plt Count 318 (150-450) K/mm3 MPV 10.6 (7.5-11.0) fl Gran % 63.8 (36.0-66.0) % Eos # (Auto) 0.24 (0-0.5) Absolute Lymphs (auto) 2.55 (1.0-4.6) Absolute Monos (auto) 0.54 (0.0-1.3) Lymphocytes % 27.4 (24.0-44.0) % Monocytes % 5.8 (0.0-12.0) % Eosinophils % 2.6 (0.00-5.0) % Basophils % 0.4 (0.0-0.4) % Absolute Granulocytes 5.93 (1.4-6.9) Basophils # 0.04 (0-0.4) Sodium 138 (137-145) mmol/L Potassium 3.6 (3.5-5.1) mmol/L Chloride 104 (98-107) mmol/L Carbon Dioxide 21 L (22-30) mmol/L Anion Gap 15.5 H (5-15) MEQ/L BUN 17 (7-17) mg/dL Creatinine 0.73 (0.52-1.04) mg/dL Estimated GFR > 60.0 ML/MIN Glucose 108 H (74-106) mg/dL Lactic Acid (0.4-2.0) Calcium 9.4 (8.4-10.2) mg/dL Total Bilirubin 0.40 (0.2-1.3) mg/dL AST 63 H (14-36) U/L ALT 77 H (0-35) U/L Alkaline Phosphatase 82 (38-126) U/L Serum Total Protein 7.4 (6.3-8.2) g/dL Albumin 4.4 (3.5-5.0) g/dL Amylase 35 (30-110) U/L Lipase 73 (23-300) U/L Urine Color YELLOW (YELLOW) Urine Appearance CLOUDY (CLEAR) Urine pH 5.0 (5-6) Ur Specific [place] 1.028 (1.005-1.025) Urine Protein NEGATIVE (Negative) Urine Ketones NEGATIVE (NEGATIVE) Urine Blood NEGATIVE (0-5) Fabio/ul Urine Nitrite NEGATIVE (NEGATIVE) Urine Bilirubin NEGATIVE (NEGATIVE) Urine Urobilinogen NEGATIVE (0-1) mg/dL Ur Leukocyte Esterase SMALL (NEGATIVE) Urine WBC (Auto) 11-15 (0-5) /HPF Urine RBC (Auto) 0-2 (0-2) /HPF U Epithel Cells (Auto) FEW (FEW) /HPF Urine Bacteria (Auto) RARE (NEGATIVE) /HPF Urine Mucus (Auto) SLIGHT (NEGATIVE) /HPF Urine Culture Reflexed YES (NO) Urine Glucose NEGATIVE (NEGATIVE) mg/dL Urine HCG, Qual (Negative) 11/11/20 11/11/20 Range/Units 21:45 21:30 WBC (4.0-10.5) K/mm3 RBC (4.1-5.4) M/mm3 Hgb (12.0-16.0) gm/dl Hct (35-47) % MCV (78-100) fl MCH (26-32) pg MCHC (32-36) g/dl RDW (11.5-14.0) % Plt Count (150-450) K/mm3 MPV (7.5-11.0) fl Gran % (36.0-66.0) % Eos # (Auto) (0-0.5) Absolute Lymphs (auto) (1.0-4.6) Absolute Monos (auto) (0.0-1.3) Lymphocytes % (24.0-44.0) % Monocytes % (0.0-12.0) % Eosinophils % (0.00-5.0) % Basophils % (0.0-0.4) % Absolute Granulocytes (1.4-6.9) Basophils # (0-0.4) Sodium (137-145) mmol/L Potassium (3.5-5.1) mmol/L Chloride (98-107) mmol/L Carbon Dioxide (22-30) mmol/L Anion Gap (5-15) MEQ/L BUN (7-17) mg/dL Creatinine (0.52-1.04) mg/dL Estimated GFR ML/MIN Glucose (74-106) mg/dL Lactic Acid 0.9 (0.4-2.0) Calcium (8.4-10.2) mg/dL Total Bilirubin (0.2-1.3) mg/dL AST (14-36) U/L ALT (0-35) U/L Alkaline Phosphatase (38-126) U/L Serum Total Protein (6.3-8.2) g/dL Albumin (3.5-5.0) g/dL Amylase (30-110) U/L Lipase (23-300) U/L Urine Color (YELLOW) Urine Appearance (CLEAR) Urine pH (5-6) Ur Specific [place] (1.005-1.025) Urine Protein (Negative) Urine Ketones (NEGATIVE) Urine Blood (0-5) Fabio/ul Urine Nitrite (NEGATIVE) Urine Bilirubin (NEGATIVE) Urine Urobilinogen (0-1) mg/dL Ur Leukocyte Esterase (NEGATIVE) Urine WBC (Auto) (0-5) /HPF Urine RBC (Auto) (0-2) /HPF U Epithel Cells (Auto) (FEW) /HPF Urine Bacteria (Auto) (NEGATIVE) /HPF Urine Mucus (Auto) (NEGATIVE) /HPF Urine Culture Reflexed (NO) Urine Glucose (NEGATIVE) mg/dL Urine HCG, Qual NEGATIVE (Negative) - Progress Progress: improved, pain not gone completely Progress Note: 11/12/20 01:55 CAT scan of the abdomen pelvis without contrast shows a left ovarian cyst. The appendix is seen and it is normal. There is some free pelvic fluid present. Counseled pt/family regarding: lab results, diagnosis, need for follow-up, rad results - Departure Departure Disposition: Home Clinical Impression: UTI (urinary tract infection), Left ovarian cyst Condition: Stable Critical Care Time: No Referrals: SKYLAR DAVID [Primary Care Provider] - Additional Instructions: Drink plenty of fluids. Use Tylenol and ibuprofen for pain control. Take antibiotics as prescribed. Follow-up with your primary care doctor for persistent symptoms. Prescriptions: Ciprofloxacin [Cipro 500 MG] 500 mg PO BID #14 tablet
[2020-11-11 22:34] LABS: Absolute Neutrophil Ct (ANC) 5.93 (1.4-6.9); BASOPHIL % 0.4 % (0.0-0.4); Basophil (Absolute #) 0.04 (0-0.4); Eosinophil % 2.6 % (0.00-5.0); Eosinophil (Absolute #) 0.24 (0-0.5); Hemoglobin 12.5 gm/dl (12.0-16.0); Lymphocyte (Absolute #) 2.55 (1.0-4.6); Lymphocytes % 27.4 % (24.0-44.0); Mean Corpuscular Hemoglobin 27.3 pg (26-32); Mean Corpuscular Hgb Concent. 32.9 g/dl (32-36); Mean Platelet Volume 10.6 fl (7.5-11.0); Monocyte (Absolute #) 0.54 (0.0-1.3); Monocytes % 5.8 % (0.0-12.0); Neutrophil % 63.8 % (36.0-66.0); Platelet Count 318 K/mm3 (150-450); Red Blood Count 4.58 M/mm3 (4.1-5.4); Red Cell Distribution Width 14.7 % (11.5-14.0); White Blood Count 9.3 K/mm3 (4.0-10.5)
[2020-11-11 22:37] LABS: Appearance CLOUDY (CLEAR); Bacteria RARE /HPF (NEGATIVE); Bilirubin NEGATIVE (NEGATIVE); Blood NEGATIVE Ery/ul (0-5); Epithelial Cells FEW /HPF (FEW); Glucose NEGATIVE (NEGATIVE); Ketones NEGATIVE (NEGATIVE); Leukocyte Esterase SMALL (NEGATIVE); Mucus SLIGHT /HPF (NEGATIVE); Nitrite NEGATIVE (NEGATIVE); Protein,Urine Dip NEGATIVE (Negative); RBC 0-2 /HPF (0-2); Specific Gravity 1.028 (1.005-1.025); Urobilinogen NEGATIVE mg/dL (0-1)
[2020-11-11 22:43] LABS: ALBUMIN 4.4 g/dL (3.5-5.0); ALKALINE PHOSPHATASE 82 U/L (38-126); AMYLASE 35 U/L (30-110); ANION GAP 15.5 MEQ/L (5-15); BLOOD UREA NITROGEN 17 mg/dL (7-17); CHLORIDE 104 mmol/L (98-107); Calcium 9.4 mg/dL (8.4-10.2); Carbon Dioxide 21 mmol/L (22-30); Creatinine 1 0.73 mg/dL (0.52-1.04); EST GLOMERULAR FILTRATION RATE > 60.0 ML/MIN; Glucose 108 mg/dL (74-106); LIPASE 73 U/L (23-300); Potassium 3.6 mmol/L (3.5-5.1); SGOT/AST 63 U/L (14-36); SGPT/ALT 77 U/L (0-35); SODIUM 138 mmol/L (137-145); Total Protein 7.4 g/dL (6.3-8.2)
[2020-11-12] MEDS ORDERED: Levofloxacin 500 MG Tablet PO ONE (01:54)
[2020-11-12] MEDS ORDERED: Levofloxacin 500 MG Tablet ONE (01:58)
[2020-11-12 02:03] VITALS: BP 140/86; PULSE 60; O2SAT 100
--- NOTE | 2020-11-12 08:51 | XRAY ---
Indication: Lower abdomen pain. Multiple contiguous axial images obtained through the abdomen and pelvis without contrast. Comparison: October 31, 2019. Lung bases remain clear. Heart not enlarged. Noncontrasted stomach and bowel loops are nonobstructed. New bilateral ovary cysts, largest on the left measuring 5 cm with tiny pelvic free fluid. No walled off fluid collection or free air. Again previous cholecystectomy. Remaining liver, pancreas, spleen, adrenal glands, kidneys, ureters, bladder, uterus, and aorta are unremarkable for noncontrast exam. Osseous structures intact. No ventral or inguinal hernias. Impression: 1. New 5 cm left ovary cyst and tiny pelvic fluid. 3. Remaining CT abdomen/pelvis without contrast exam is negative. Comment: Preliminary interpretation made by C. No critical discrepancy.
== END 2020-11-12 02:10 | disposition home or self-care (01) ==
LOC: ED 20:34
DX: N39.0 Urinary tract infection, site not specified (principal); N83.202 Unspecified ovarian cyst, left side; R10.9 Unspecified abdominal pain
CPT/HCPCS: 36000; 36415; 74176; 80053; 81001; 82150; 83605; 83690; 84703; 85025; 87086; 99284; A9270-GY

== ENCOUNTER 2021-05-21 22:21 | Emergency (ER) | payer MEDICAID ==
--- NOTE | 2021-05-21 22:24 | ERPHSYRPT ---
- History of Present Illness Time Seen by Provider: 05/21/21 22:22 Source: patient Exam Limitations: no limitations Physician History: This is a 20-year-old obese white female who was brought in by law enforcement because of suicidal ideation. 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 Patient had an argument with her estranged . Patient denies alcohol or illicit drug use. Timing/Duration: today Severity of Symptoms-Max: moderate Severity of Symptoms-Current: moderate Context related to: spouse, living circumstances Suicidal thoughts: specific plan Associated Symptoms: depressed Previous symptoms: same symptoms as today Allergies/Adverse Reactions: latex Allergy (Verified 05/21/21 22:24) morphine Adverse Reaction (Mild, Verified 05/21/21 22:24) Vomiting Home Medications: No Reportable Medications [No Reported Medications] 05/21/21 [History] Hx Tetanus, Diphtheria Vaccination/Date Given: Yes (unknown) Hx Influenza Vaccination/Date Given: No Hx Pneumococcal Vaccination/Date Given: No Travel Risk - International Travel Have you traveled outside of the country in past 3 weeks: No - Coronavirus Screening Are you exhibiting any of the following symptoms?: No Close contact with a COVID-19 positive Pt in past 14-21 Days: No - Vaccine Status Have you recieved a Covid-19 vaccination: No - Past Medical History Pertinent Past Medical History: No Neurological History: No Pertinent History ENT History: No Pertinent History Cardiac History: Hypertension Respiratory History: Asthma Endocrine Medical History: No Pertinent History Musculoskeletal History: No Pertinent History GI Medical History: GERD History: No Pertinent History Psycho-Social History: Anxiety, Depression Female Reproductive Disorders: No Pertinent History Other Medical History: Inhaler (PRN), R Humerus Fracture (1 y/o), Tonsillectomy and Adenoidectomy, (2020), LUE tendon repair at wrist (01/28) - Past Surgical History Past Surgical History: Yes Neuro Surgical History: No Pertinent History Cardiac: No Pertinent History Respiratory: No Pertinent History Gastrointestinal: Cholecystectomy Genitourinary: No Pertinent History Musculoskeletal: Other Female Surgical History: Section Other Surgical History: tendon release lt wrist. toenail removed. tendon released,egd - Social History Smoking Status: Former smoker How long have you smoked: 1yr Exposure to second hand smoke: No Drug Use: none Patient Lives Alone: No Significant Family History: no pertinent family hx - Review of Systems Constitutional: No Symptoms Eyes: No Symptoms Ears, Nose, & Throat: No Symptoms Respiratory: No Symptoms Cardiac: No Symptoms Abdominal/Gastrointestinal: No Symptoms Genitourinary Symptoms: No Symptoms Musculoskeletal: No Symptoms Skin: No Symptoms Neurological: No Symptoms Psychological: No Symptoms Endocrine: No Symptoms Hematologic/Lymphatic: No Symptoms Immunological/Allergic: No Symptoms All Other Systems: Reviewed and Negative - Nursing Vital Signs Nursing Vital Signs: Initial Vital Signs Temperature 97.8 F 05/21/21 22:21 Pulse Rate 58 L 05/21/21 22:21 Respiratory Rate 18 05/21/21 22:21 Blood Pressure 142/85 05/21/21 22:21 O2 Sat by Pulse Oximetry 100 05/21/21 22:21 Pain Scale Pain Intensity 0 - Physical Exam General Appearance: no apparent distress, alert, anxiety, obese Eyes, Ears, Nose, Throat Exam: normal ENT inspection, moist mucous membranes Neck Exam: normal inspection, non-tender, supple, full range of motion Respiratory Exam: normal breath sounds, lungs clear, airway intact, No chest tenderness, No respiratory distress Cardiovascular Exam: regular rate/rhythm, normal heart sounds, normal peripheral pulses Gastrointestinal/Abdominal Exam: soft, normal bowel sounds, No tenderness Peripheral Pulses: dorsalis-pedis (L): 3+ Neurological Exam: 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, 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, 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, oriented x 3, depressed affect Appearance: disheveled Behavior/Eye Contact/Speech: alert & cooperative, avoids eye contact Thoughts/Hallucinations: no apparent hallucination Skin Exam: normal color, warm, dry SpO2 Interpretation: normal O2 Delivery: Room Air - Course Nursing assessment & vital signs reviewed: Yes Ordered Tests: Active Orders 24 hr Category Date Time Status EKG-ER Only STAT Care 05/21/21 22:24 Active HAND (MINIMUM 3 VIEWS) Stat Exams 05/21/21 23:01 Taken WRIST (MIN 3 VIEWS) Stat Exams 05/21/21 22:39 Taken ACETAMINOPHEN Stat Lab 05/21/21 22:51 Completed CBC W DIFF Stat Lab 05/21/21 22:51 Completed CMP Stat Lab 05/21/21 22:51 Completed COVID AG-BINAX NOW RAPID TEST Stat Lab 05/21/21 22:51 Completed ETHYL ALCOHOL Stat Lab 05/21/21 22:51 Completed HCG,QUALITATIVE URINE Stat Lab 05/21/21 22:54 Completed SALICYLATE Stat Lab 05/21/21 22:51 Completed UA W/RFX UR CULTURE Stat Lab 05/21/21 22:54 Completed Urine Triage Profile Stat Lab 05/21/21 22:54 Completed Lab/Rad Data: Laboratory Result Diagrams 05/21/21 22:51 05/21/21 22:51 Laboratory Results 05/21/21 05/21/21 05/21/21 Range/Units 22:54 22:54 22:54 WBC (4.0-10.5) K/mm3 RBC (4.1-5.4) M/mm3 Hgb (12.0-16.0) gm/dl Hct (35-47) % MCV (78-100) fl MCH (26-32) pg MCHC (32-36) g/dl RDW (11.5-14.0) % Plt Count (150-450) K/mm3 MPV (7.5-11.0) fl Gran % (36.0-66.0) % Eos # (Auto) (0-0.5) Absolute Lymphs (auto) (1.0-4.6) Absolute Monos (auto) (0.0-1.3) Lymphocytes % (24.0-44.0) % Monocytes % (0.0-12.0) % Eosinophils % (0.00-5.0) % Basophils % (0.0-0.4) % Absolute Granulocytes (1.4-6.9) Basophils # (0-0.4) Sodium (137-145) mmol/L Potassium (3.5-5.1) mmol/L Chloride (98-107) mmol/L Carbon Dioxide (22-30) mmol/L Anion Gap (5-15) MEQ/L BUN (7-17) mg/dL Creatinine (0.52-1.04) mg/dL Estimated GFR ML/MIN Glucose (74-106) mg/dL Calcium (8.4-10.2) mg/dL Total Bilirubin (0.2-1.3) mg/dL AST (14-36) U/L ALT (0-35) U/L Alkaline Phosphatase (38-126) U/L Serum Total Protein (6.3-8.2) g/dL Albumin (3.5-5.0) g/dL Urine Color YELLOW (YELLOW) Urine Appearance SLIGHTLY CLOUDY (CLEAR) Urine pH 5.0 (5-6) Ur Specific [place] 1.025 (1.005-1.025) Urine Protein NEGATIVE (Negative) Urine Ketones NEGATIVE (NEGATIVE) Urine Blood NEGATIVE (0-5) Fabio/ul Urine Nitrite NEGATIVE (NEGATIVE) Urine Bilirubin NEGATIVE (NEGATIVE) Urine Urobilinogen NEGATIVE (0-1) mg/dL Ur Leukocyte Esterase NEGATIVE (NEGATIVE) Urine WBC (Auto) 0-2 (0-5) /HPF Urine RBC (Auto) 0-2 (0-2) /HPF U Epithel Cells (Auto) RARE (FEW) /HPF Urine Bacteria (Auto) RARE (NEGATIVE) /HPF Urine Mucus (Auto) SLIGHT (NEGATIVE) /HPF Urine Culture Reflexed NO (NO) Urine Glucose NEGATIVE (NEGATIVE) mg/dL Urine HCG, Qual NEGATIVE (Negative) Salicylates (2-20) mg/dL Urine Opiates Level NEGATIVE (NEGATIVE) Ur Methadone NEGATIVE (NEGATIVE) Acetaminophen (10-30) ug/ml Urine Barbiturates NEGATIVE (NEGATIVE) Ur Phencyclidine (PCP) NEGATIVE (NEGATIVE) Urine Amphetamine NEGATIVE (NEGATIVE) U Benzodiazepine Level NEGATIVE (NEGATIVE) Urine Cocaine NEGATIVE (NEGATIVE) Urine Marijuana (THC) NEGATIVE (NEGATIVE) Ethyl Alcohol (0-10) mg/dL SARS-CoV-2 Ag (Rapid) (NEGATIVE) 05/21/21 05/21/21 05/21/21 Range/Units 22:51 22:51 22:51 WBC 10.2 (4.0-10.5) K/mm3 RBC 4.73 (4.1-5.4) M/mm3 Hgb 12.7 (12.0-16.0) gm/dl Hct 40.2 (35-47) % MCV 85.0 (78-100) fl MCH 26.8 (26-32) pg MCHC 31.6 L (32-36) g/dl RDW 14.2 H (11.5-14.0) % Plt Count 344 (150-450) K/mm3 MPV 10.3 (7.5-11.0) fl Gran % 69.9 H (36.0-66.0) % Eos # (Auto) 0.20 (0-0.5) Absolute Lymphs (auto) 2.32 (1.0-4.6) Absolute Monos (auto) 0.50 (0.0-1.3) Lymphocytes % 22.7 L (24.0-44.0) % Monocytes % 4.9 (0.0-12.0) % Eosinophils % 2.0 (0.00-5.0) % Basophils % 0.5 (0.0-0.4) % Absolute Granulocytes 7.13 H (1.4-6.9) Basophils # 0.05 (0-0.4) Sodium 140 (137-145) mmol/L Potassium 4.1 (3.5-5.1) mmol/L Chloride 103 (98-107) mmol/L Carbon Dioxide 25 (22-30) mmol/L Anion Gap 15.4 H (5-15) MEQ/L BUN 12 (7-17) mg/dL Creatinine 0.87 (0.52-1.04) mg/dL Estimated GFR > 60.0 ML/MIN Glucose 114 H (74-106) mg/dL Calcium 9.6 (8.4-10.2) mg/dL Total Bilirubin 0.30 (0.2-1.3) mg/dL AST 25 (14-36) U/L ALT 29 (0-35) U/L Alkaline Phosphatase 86 (38-126) U/L Serum Total Protein 7.7 (6.3-8.2) g/dL Albumin 4.6 (3.5-5.0) g/dL Urine Color (YELLOW) Urine Appearance (CLEAR) Urine pH (5-6) Ur Specific [place] (1.005-1.025) Urine Protein (Negative) Urine Ketones (NEGATIVE) Urine Blood (0-5) Fabio/ul Urine Nitrite (NEGATIVE) Urine Bilirubin (NEGATIVE) Urine Urobilinogen (0-1) mg/dL Ur Leukocyte Esterase (NEGATIVE) Urine WBC (Auto) (0-5) /HPF Urine RBC (Auto) (0-2) /HPF U Epithel Cells (Auto) (FEW) /HPF Urine Bacteria (Auto) (NEGATIVE) /HPF Urine Mucus (Auto) (NEGATIVE) /HPF Urine Culture Reflexed (NO) Urine Glucose (NEGATIVE) mg/dL Urine HCG, Qual (Negative) Salicylates < 1.0 L (2-20) mg/dL Urine Opiates Level (NEGATIVE) Ur Methadone (NEGATIVE) Acetaminophen < 10 L (10-30) ug/ml Urine Barbiturates (NEGATIVE) Ur Phencyclidine (PCP) (NEGATIVE) Urine Amphetamine (NEGATIVE) U Benzodiazepine Level (NEGATIVE) Urine Cocaine (NEGATIVE) Urine Marijuana (THC) (NEGATIVE) Ethyl Alcohol < 10 (0-10) mg/dL SARS-CoV-2 Ag (Rapid) NEGATIVE (NEGATIVE) - Progress Progress: unchanged Progress Note: 05/22/21 03:02 [facility] has reviewed the patient's chart and has accepted the patient for transfer for inpatient management Counseled pt/family regarding: lab results, diagnosis, need for follow-up, rad results - Departure Departure Disposition: Transfer Clinical Impression: Suicidal ideation Condition: Stable Critical Care Time: No Referrals: SKYLAR PARSON NP [Primary Care Provider] - Follow up/PCP as directed
[2021-05-21 22:54] LABS: Absolute Neutrophil Ct (ANC) 7.13 (1.4-6.9); Basophil (Absolute #) 0.05 (0-0.4); Hematocrit 40.2 % (35-47); Hemoglobin 12.7 gm/dl (12.0-16.0); Lymphocyte (Absolute #) 2.32 (1.0-4.6); Lymphocytes % 22.7 % (24.0-44.0); Mean Corpuscular Hemoglobin 26.8 pg (26-32); Mean Corpuscular Hgb Concent. 31.6 g/dl (32-36); Mean Platelet Volume 10.3 fl (7.5-11.0); Monocytes % 4.9 % (0.0-12.0); Neutrophil % 69.9 % (36.0-66.0); Platelet Count 344 K/mm3 (150-450); Red Blood Count 4.73 M/mm3 (4.1-5.4); Red Cell Distribution Width 14.2 % (11.5-14.0); White Blood Count 10.2 K/mm3 (4.0-10.5)
[2021-05-21 23:11] LABS: Appearance SLIGHTLY CLOUDY (CLEAR); Bacteria RARE /HPF (NEGATIVE); Bilirubin NEGATIVE (NEGATIVE); Blood NEGATIVE Ery/ul (0-5); Epithelial Cells RARE /HPF (FEW); Glucose NEGATIVE (NEGATIVE); Ketones NEGATIVE (NEGATIVE); Leukocyte Esterase NEGATIVE (NEGATIVE); Mucus SLIGHT /HPF (NEGATIVE); Nitrite NEGATIVE (NEGATIVE); Protein,Urine Dip NEGATIVE (Negative); RBC 0-2 /HPF (0-2); Specific Gravity 1.025 (1.005-1.025); Urobilinogen NEGATIVE mg/dL (0-1); WBC 0-2 /HPF (0-5)
[2021-05-21 23:14] LABS: ACETAMINOPHEN < 10 ug/ml (10-30); ALBUMIN 4.6 g/dL (3.5-5.0); ALKALINE PHOSPHATASE 86 U/L (38-126); ANION GAP 15.4 MEQ/L (5-15); BLOOD UREA NITROGEN 12 mg/dL (7-17); CHLORIDE 103 mmol/L (98-107); Calcium 9.6 mg/dL (8.4-10.2); Carbon Dioxide 25 mmol/L (22-30); Creatinine 1 0.87 mg/dL (0.52-1.04); EST GLOMERULAR FILTRATION RATE > 60.0 ML/MIN; ETHYL ALCOHOL < 10 mg/dL (0-10); Glucose 114 mg/dL (74-106); Potassium 4.1 mmol/L (3.5-5.1); SALICYLATE < 1.0 mg/dL (2-20); SGOT/AST 25 U/L (14-36); SGPT/ALT 29 U/L (0-35); SODIUM 140 mmol/L (137-145); Total Protein 7.7 g/dL (6.3-8.2)
[2021-05-21 23:28] LABS: COVID AG -BINAX NOW RAPID TEST NEGATIVE (NEGATIVE)
[2021-05-22 00:35] LABS: Amphetamine,Urine NEGATIVE (NEGATIVE); Barbiturate,Urine NEGATIVE (NEGATIVE); Benzodiazepine,Urine NEGATIVE (NEGATIVE); Cocaine,Urine NEGATIVE (NEGATIVE); Methadone,Urine NEGATIVE (NEGATIVE); Opiate,Urine NEGATIVE (NEGATIVE); PCP,Urine NEGATIVE (NEGATIVE); THC,Urine NEGATIVE (NEGATIVE)
[2021-05-22 03:04] VITALS: O2SAT 99
[2021-05-22 04:37] VITALS: BP 120/78; PULSE 78
--- NOTE | 2021-05-22 08:50 | XRAY ---
Indication: Pain following punching injury. Comparison: January 10, 2021. 3 view right hand again demonstrates old distal 5th metacarpal fracture. No new/acute bony, articular, or soft tissue abnormalities.
--- NOTE | 2021-05-22 08:50 | XRAY ---
Indication: Pain following punching injury. Comparison: None 3 view right wrist obtained. No bony, articular, or soft tissue abnormalities.
== END 2021-05-22 04:40 ==
LOC: ED 22:21
DX: R45.851 Suicidal ideations (principal); Z63.5 Disruption of family by separation and divorce; I10 Essential (primary) hypertension; K21.9 Gastro-esophageal reflux disease without esophagitis
CPT/HCPCS: 36415; 73110; 73130; 80053; 80307; 81001; 84703; 85025; 93005; 99000; 99285; G0480

== ENCOUNTER 2022-04-28 22:16 | Emergency (ER) | payer OTHER | END 2022-04-28 23:20 | disposition left against medical advice (07) | LOC: ED 22:16 | DX: Z53.21 Procedure and treatment not carried out due to patient leaving prior to being seen by health care provider (principal) ==

== ENCOUNTER 2022-04-30 11:36 | Emergency (ER) | payer OTHER ==
[2022-04-30 11:49] VITALS: O2SAT 98
[2022-04-30 12:32] LABS: Appearance Cloudy (Clear); Bacteria Many /HPF (None Seen); Bilirubin Negative (Negative); Blood Negative (Negative); Glucose, Urine Negative (Negative); Hyaline Casts NONE SEEN /LPF (0-2); Ketones Negative (Negative); Leukocyte Esterase Trace (Negative); Nitrite Negative (Negative); Ph 6.5 (4.6-8.0); Protein,Urine Dip Negative (Negative); RBC 0-2 /HPF (0-5); Specific Gravity >=1.030 (1.005-1.030)
[2022-04-30 12:33] LABS: Epithelial Cells Moderate /HPF (None Seen)
[2022-04-30 12:34] LABS: ADD URINE CULTURE? YES (NO)
--- NOTE | 2022-04-30 12:50 | XRAY ---
Indication: Low back pain 5 days. Comparison: November 10, 2019 3 view lumbar spine unchanged again demonstrating normal alignment with minimal L5-S1 disc space narrowing and cholecystectomy clips. No new/acute abnormalities.
[2022-04-30] MEDS ORDERED: TORAdol 30 mg Injection IM ONE (13:16)
[2022-04-30] MEDS ORDERED: TORAdol 30 mg Injection ONE (13:17)
--- NOTE | 2022-04-30 13:21 | ERPHSYRPT ---
- History of Present Illness Time Seen by Provider: 04/30/22 11:55 Source: patient Exam Limitations: no limitations Patient Subjective Stated Complaint: Pt states "For the past four days I have had horrible back pain and a fever at home. The pain is on my left and I know I have a huge ovarian cyst over there, that was what was causing the pain last time." Triage Nursing Assessment: Pt presented alert and oriented X 3, skin pwd. Pt ambulates with a slow shuffling gait. Pt able to speak in clear full sentences pt in no apparent respiratory distress. Physician History: Patient is a 21-year-old female presents to our ED with a 4-day history of low back pain. Pain is primarily to the left SI joint area. No specific trauma but patient admits to a history of the same type of back pain that eventually resolved over time. Patient states she felt feverish at home 4 days ago however currently afebrile. No recent back procedures. No saddle anesthesia. No IVDU. No saddle anesthesia. Symptoms are mild to moderate in intensity. No specific worsening improving factors. Patient otherwise feels well. She voices no other complaints or concerns at this time. Portions of this note were created with voice recognition technology. There may be grammatical, spelling, punctuation or sound alike errors Timing/Duration: day(s) (4 days ago) Method of Injury: unknown Quality: aching Back Pain Location: lumbar spine Severity of Pain-Max: moderate Severity of Pain-Current: mild (Pain is localized. No radiation.) Modifying Factors: Improves With: other (Movement and palpation to the left SI joint reproduces pain.) Associated Symptoms: denies symptoms, No urinary incontinence Previous symptoms: same symptoms as today Allergies/Adverse Reactions: latex Allergy (Verified 05/21/21 22:24) morphine Adverse Reaction (Mild, Verified 05/21/21 22:24) Vomiting Hx Tetanus, Diphtheria Vaccination/Date Given: Yes (unknown) Hx Influenza Vaccination/Date Given: No Hx Pneumococcal Vaccination/Date Given: No Immunizations Up to Date: Yes Travel Risk - International Travel Have you traveled outside of the country in past 3 weeks: No - Coronavirus Screening Are you exhibiting any of the following symptoms?: No Close contact with a COVID-19 positive Pt in past 14-21 Days: No - Vaccine Status Have you recieved a Covid-19 vaccination: No - Review of Systems Constitutional: No Symptoms, No Fever, No Chills Eyes: No Symptoms Ears, Nose, & Throat: No Symptoms Respiratory: No Symptoms, No Cough, No Dyspnea Cardiac: No Symptoms, No Chest Pain, No Edema, No Syncope Abdominal/Gastrointestinal: No Symptoms, No Abdominal Pain, No Nausea, No Vomiting, No Diarrhea Genitourinary Symptoms: No Symptoms, No Dysuria Musculoskeletal: No Symptoms, No Back Pain, No Neck Pain Skin: No Symptoms, No Rash Neurological: No Symptoms, No Dizziness, No Focal Weakness, No Sensory Changes Psychological: No Symptoms Endocrine: No Symptoms Hematologic/Lymphatic: No Symptoms Immunological/Allergic: No Symptoms All Other Systems: Reviewed and Negative - Past Medical History Pertinent Past Medical History: No Neurological History: No Pertinent History ENT History: No Pertinent History Cardiac History: Hypertension Respiratory History: Asthma Endocrine Medical History: No Pertinent History Musculoskeletal History: No Pertinent History GI Medical History: GERD History: No Pertinent History Psycho-Social History: Anxiety, Depression Female Reproductive Disorders: No Pertinent History Other Medical History: Inhaler (PRN), R Humerus Fracture (1 y/o), Tonsillectomy and Adenoidectomy, (2020), LUE tendon repair at wrist (01/28) - Past Surgical History Past Surgical History: Yes Neuro Surgical History: No Pertinent History Cardiac: No Pertinent History Respiratory: No Pertinent History Gastrointestinal: Cholecystectomy Genitourinary: No Pertinent History Musculoskeletal: Other Female Surgical History: Section Other Surgical History: tendon release lt wrist. toenail removed. tendon released,egd - Social History Smoking Status: Former smoker How long have you smoked: 1yr Exposure to second hand smoke: No Drug Use: none Patient Lives Alone: No Significant Family History: no pertinent family hx - Female History Hx Last Menstrual Period: 04/08/2022 Hx Now: (unknown) - Nursing Vital Signs Nursing Vital Signs: Initial Vital Signs Temperature 98.0 F 04/30/22 11:45 Pulse Rate 75 04/30/22 11:45 Respiratory Rate 18 04/30/22 11:45 Blood Pressure 143/81 04/30/22 11:45 O2 Sat by Pulse Oximetry 98 04/30/22 11:45 Pain Scale Pain Intensity 8 - Physical Exam General Appearance: no apparent distress, alert Eye Exam: PERRL/EOMI, eyes nml inspection Ears, Nose, Throat Exam: normal ENT inspection, TMs normal, pharynx normal Neck Exam: normal inspection, non-tender, supple, full range of motion, No meningismus, No midline tenderness Respiratory Exam: normal breath sounds, lungs clear, airway intact, No respiratory distress Cardiovascular Exam: regular rate/rhythm, normal heart sounds, normal peripheral pulses Gastrointestinal Exam: soft, No tenderness, No mass Back Exam: normal inspection, other (Palpation to the left SI joint and left lumbar paraspinal musculature reproduce pain.) Extremity Exam: normal inspection, normal range of motion, No calf tenderness, No pedal edema Neurologic Exam: alert, oriented x 3, 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 Otherwise no acute pathology observed on bar spine x-ray) Ordered Tests: Active Orders 24 hr Category Date Time Status LUMBAR LIMITED (2 OR 3 VIEWS) Stat Exams 04/30/22 12:09 Completed CULTURE,URINE Stat Lab 04/30/22 11:38 Received UA W/RFX UR CULTURE Stat Lab 04/30/22 11:38 Completed Medication Summary Discontinued Medications Generic Name Dose Route Start Last Admin Trade Name Antonyq PRN Reason Stop Dose Admin Ketorolac Tromethamine 30 mg 04/30/22 13:16 Ketorolac Tromethamine 30 Mg/Ml Inj IM 04/30/22 13:17 STAT ONE Ketorolac Tromethamine Confirm 04/30/22 13:17 Ketorolac Tromethamine 30 Mg/Ml Inj Administered 04/30/22 13:18 Dose 30 mg .ROUTE .STK-MED ONE Lab/Rad Data: Laboratory Results 04/30/22 Range/Units 11:38 Urine Color Yellow (Yellow) Urine Appearance Cloudy A (Clear) Urine pH 6.5 (4.6-8.0) Ur Specific [place] >=1.030 A (1.005-1.030) Urine Protein Negative (Negative) Urine Glucose (UA) Negative (Negative) mg/dL Urine Ketones Negative (Negative) Urine Blood Negative (Negative) Urine Nitrite Negative (Negative) Urine Bilirubin Negative (Negative) Urine Urobilinogen 1.0 A (0.2) mg/dL Ur Leukocyte Esterase Trace A (Negative) U Hyaline Cast (Auto) NONE SEEN (0-2) /LPF Urine Microscopic RBC 0-2 (0-5) /HPF Urine Microscopic WBC 3-5 (0-5) /HPF Ur Epithelial Cells Moderate A (None Seen) /HPF Urine Bacteria Many A (None Seen) /HPF Urine Culture Reflexed YES (NO) - Progress Progress: improved Progress Note: Patient 21-year-old female presents to our ED for evaluation of acute on chronic back pain. Physical exam reveals tenderness at the left SI joint and slightly at the left lumbar paraspinal musculature. Physical exam otherwise negative. Patient afebrile. Patient's complaint is acute. Complexity of complaint is moderate. No significant comorbidities to contribute the patient's current pathology. Test ordered include x-ray lumbar spine and urinalysis. X-ray shows displaced narrowing at L5 S1. Urinalysis negative. Patient received Toradol for pain control. Patient resting comfortably. Patient agrees to follow-up with primary care doctor within 48 hours for reevaluation. Level of EM service provided was low. Complexity of problem is low. Risk of complication and or risk of morbidity/mortality patient management is moderate. No critical care time. 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 Pain improved after administration of Toradol. Patient voices no other complaints or concerns this time. Will discharge home. She voices no other complaints or concerns at this time. Portions of this note were created with voice recognition technology. There may be grammatical, spelling, punctuation or sound alike errors 04/30/22 13:26 Counseled pt/family regarding: lab results, diagnosis, need for follow-up, rad results Medical Desision Making - Diagnostic Testing Diagnostic Testing: Diagnostic tests were ordered,analyzed, and reviewed by me and used in my medical decision making for this patient. Radiologic studies (if ordered) were read by me initially then discussed with the radiologist . - Departure Departure Disposition: Home Clinical Impression: Back pain, Lumbosacral strain Condition: Stable Critical Care Time: No Referrals: SKYLAR PARSON NP [Primary Care Provider] - Follow up/PCP as directed Additional Instructions: Discharge/Care Plan JOESPH TRINH was seen on 04/30/22 in the Emergency Room. The patient was counseled regarding Diagnosis,Lab results, Imaging studies, need for follow up and when to return to the Emergency Room. Prescriptions given: Discharge Note I have spoken with the patient and/or caregivers. I have explained the patient's condition, diagnosis and treatment plan based on the information available to me at this time. I have answered the patient's and/or caregiver's questions and addressed any concerns. The patient and/or caregivers have as good understanding of the patient's diagnosis, condition and treatment plan as can be expected at this point. The vital signs have been stable. The patient's condition is stable and appropriate for discharge from the emergency department. The patient will pursue further outpatient evaluation with the primary care physician or other designated or consulting physician as outlined in the discharge instructions. The patient and/or caregivers are agreeable to this plan of care and follow-up instructions have been explained in detail. The patient and/or caregivers have received these instruction. The patient/and or caregivers are aware that any significant change in condition or worsening of symptoms should prompt an immediate return to this or the closest emergency department or call 911. Prescriptions: Ketorolac Trometh 10 mg Tab [TORAdol 10 MG TABLET] 10 mg PO TID 5 Days #15 tablet
[2022-04-30 13:46] VITALS: BP 140/86; PULSE 70
== END 2022-04-30 13:45 | disposition home or self-care (01) ==
LOC: ED 11:36
DX: S39.012A Strain of muscle, fascia and tendon of lower back, initial encounter (principal); I10 Essential (primary) hypertension; Z28.310 Unvaccinated for COVID-19
CPT/HCPCS: 72100; 81001; 87086; 96372; 99283; J1885

== ENCOUNTER 2022-07-08 15:16 | Emergency (ER) | payer OTHER ==
--- NOTE | 2022-07-08 15:47 | ERPHSYRPT ---
- History of Present Illness Historian: patient Exam Limitations: no limitations Patient Subjective Stated Complaint: Pt states "I thought I was getting a migraine but the pain went from the right side of my head down into my neck and chest. I am a little nauseated as well. Triage Nursing Assessment: Pt presented alert and oriented X 3, skin pwd. Pt ambulates with an upright steady gait, able to speak in clear full sentences. Pt resting comfortably on the bed. Physician History: 22 yo WF w mid-sternal chest pain x1hr which radiates to her neck. pain is sharp and 8/10 on scale. Lying down makes the pain worse. She has dyspnea/nausea but d enies vomiting/diaphoresis. Pt has a h/o HTN w noncompliance but denies h/o PR/CAD/DM/hyperlipidemia/tobacco use. Cough/fever also denied. Timing/Duration: hour(s) (1hour) Activities at Onset: rest Quality: sharpness Location: substernal Chest Pain Radiation: neck Severity of Pain-Max: severe Severity of Pain-Current: severe Modifying Factors: Improves With: other (Worse when lying down) Associated Symptoms: denies symptoms, nausea, shortness of breath Prior Chest Pain/Cardiac Workup: no prior chest pain Nitro Today/Relief: no nitro taken today Aspirin Treatment Today: no aspirin today Allergies/Adverse Reactions: latex Allergy (Verified 05/21/21 22:24) morphine Adverse Reaction (Mild, Verified 05/21/21 22:24) Vomiting Home Medications: [place] Carbonate 150 mg PO DAILY 07/08/22 [History] Topiramate 50 mg PO DAILY 07/08/22 [History] Hx Tetanus, Diphtheria Vaccination/Date Given: Yes (unknown) Hx Influenza Vaccination/Date Given: No Hx Pneumococcal Vaccination/Date Given: No Travel Risk - International Travel Have you traveled outside of the country in past 3 weeks: No - Coronavirus Screening Are you exhibiting any of the following symptoms?: No Close contact with a COVID-19 positive Pt in past 14-21 Days: No - Vaccine Status Have you recieved a Covid-19 vaccination: No - Review of Systems Constitutional: No Symptoms Eyes: No Symptoms Ears, Nose, & Throat: No Symptoms Respiratory: No Symptoms, Dyspnea Cardiac: No Symptoms, Chest Pain Abdominal/Gastrointestinal: No Symptoms, Nausea Genitourinary Symptoms: No Symptoms Musculoskeletal: No Symptoms Skin: No Symptoms Neurological: No Symptoms Psychological: No Symptoms Endocrine: No Symptoms Hematologic/Lymphatic: No Symptoms Immunological/Allergic: No Symptoms - Past Medical History Pertinent Past Medical History: No Neurological History: No Pertinent History ENT History: No Pertinent History Cardiac History: Hypertension Respiratory History: Asthma Endocrine Medical History: No Pertinent History Musculoskeletal History: No Pertinent History GI Medical History: GERD History: No Pertinent History Psycho-Social History: Anxiety, Depression Female Reproductive Disorders: No Pertinent History Other Medical History: Inhaler (PRN), R Humerus Fracture (1 y/o), Tonsillectomy and Adenoidectomy, (2020), LUE tendon repair at wrist (01/28) - Past Surgical History Past Surgical History: Yes Neuro Surgical History: No Pertinent History Cardiac: No Pertinent History Respiratory: No Pertinent History Gastrointestinal: Cholecystectomy Genitourinary: No Pertinent History Musculoskeletal: Other Female Surgical History: Section Other Surgical History: tendon release lt wrist. toenail removed. tendon released,egd - Social History Smoking Status: Former smoker How long have you smoked: 1yr Exposure to second hand smoke: No Drug Use: none Patient Lives Alone: No Significant Family History: no pertinent family hx - Female History Hx Last Menstrual Period: 06/30/2022 Hx Now: No - Nursing Vital Signs Nursing Vital Signs: Initial Vital Signs Temperature 98.3 F 07/08/22 15:16 Pulse Rate 74 07/08/22 15:16 Respiratory Rate 20 07/08/22 15:16 Blood Pressure 159/102 07/08/22 15:16 O2 Sat by Pulse Oximetry 98 07/08/22 15:16 Pain Scale Pain Intensity 0 Hypertensive - Physical Exam General Appearance: no apparent distress Eye Exam: PERRL/EOMI, eyes nml inspection Ears, Nose, Throat Exam: normal ENT inspection, TMs normal, pharynx normal, moist mucous membranes Neck Exam: normal inspection, non-tender, supple, full range of motion, No meningismus, No mass, No Brudzinski, No Kernig's, No carotid bruit Respiratory Exam: normal breath sounds, chest tenderness, lungs clear, airway intact, No respiratory distress Cardiovascular Exam: regular rate/rhythm, normal heart sounds, normal peripheral pulses, capillary refill <2 sec, No murmur Gastrointestinal/Abdomen Exam: soft, normal bowel sounds, No tenderness Back Exam: normal inspection, normal range of motion, No CVA tenderness Extremity Exam: normal inspection, normal range of motion Neurologic Exam: alert, oriented x 3, cooperative, weather teacher II-XII nml as tested, normal mood/affect, nml cerebellar function, nml station & gait, sensation nml Skin Exam: normal color, warm, dry Lymphatic Exam: No adenopathy SpO2 Interpretation: normal SpO2: 98 O2 Delivery: Room Air - Course EKG Interpreted by Me: RATE (NSR/rate 61/Normal QT-QTc/No acute ST segment changes/Tall T waves) - Radiology Exams Chest X-ray Interpretation: Discussed w/ radiologist (CXR neg per Rad) Ordered Tests: Active Orders 24 hr Category Date Time Status EKG-ER Only STAT Care 07/08/22 15:41 Completed CHEST 1 VIEW (PORTABLE) Stat Exams 07/08/22 15:41 Completed CBC W DIFF Stat Lab 07/08/22 15:15 Completed CMP Stat Lab 07/08/22 15:15 Completed D-DIMER QUANTITATIVE Stat Lab 07/08/22 15:15 Completed PROTIME WITH INR Stat Lab 07/08/22 15:15 Completed PTT Stat Lab 07/08/22 15:15 Completed TROPONIN Q4H Lab 07/08/22 15:15 Completed Lab/Rad Data: Laboratory Result Diagrams 07/08/22 15:15 07/08/22 15:15 Laboratory Results 07/08/22 07/08/22 07/08/22 Range/Units 15:15 15:15 15:15 WBC (4.0-10.5) x10^3/uL RBC (4.1-5.4) x10^6/uL Hgb (12.0-16.0) g/dL Hct (35-47) % MCV (78-100) fL MCH (26-32) pg MCHC (32-36) g/dL RDW (11.5-14.0) % Plt Count (150-450) x10^3/uL MPV (7.5-11.0) fL Gran % (36.0-66.0) % Immature Gran % (Auto) (0.00-0.4) % Nucleat RBC Rel Count (0.00-0.1) % Eos # (Auto) (0-0.5) x10^3/uL Immature Gran # (Auto) (0.00-0.03) x10^3u/L Absolute Lymphs (auto) (1.0-4.6) x10^3/uL Absolute Monos (auto) (0.0-1.3) x10^3/uL Absolute Nucleated RBC (0.00-0.01) x10^3u/L Lymphocytes % (24.0-44.0) % Monocytes % (0.0-12.0) % Eosinophils % (0.00-5.0) % Basophils % (0.0-0.4) % Absolute Granulocytes (1.4-6.9) x10^3/uL Basophils # (0-0.4) x10^3/uL PT 10.3 (9.4-12.5) SECONDS INR 0.94 (0.8-3.0) APTT 27.5 (25.1-36.5) SECONDS D-Dimer 0.38 (0.0-0.50) mg/L Sodium 141 (137-145) mmol/L Potassium 4.1 (3.5-5.1) mmol/L Chloride 103 (98-107) mmol/L Carbon Dioxide 31 H (22-30) mmol/L Anion Gap 11.6 (5-15) MEQ/L BUN 16 (7-17) mg/dL Creatinine 0.90 (0.52-1.04) mg/dL Estimated GFR > 60.0 ML/MIN Glucose 103 (74-106) mg/dL Calcium 9.1 (8.4-10.2) mg/dL Total Bilirubin 0.40 (0.2-1.3) mg/dL AST 30 (14-36) U/L ALT 33 (0-35) U/L Alkaline Phosphatase 71 (38-126) U/L Troponin I < 0.012 (0.000-0.034) ng/mL Serum Total Protein 7.7 (6.3-8.2) g/dL Albumin 4.3 (3.5-5.0) g/dL 07/08/22 Range/Units 15:15 WBC 7.8 (4.0-10.5) x10^3/uL RBC 4.77 (4.1-5.4) x10^6/uL Hgb 13.0 (12.0-16.0) g/dL Hct 41.0 (35-47) % MCV 86.0 (78-100) fL MCH 27.3 (26-32) pg MCHC 31.7 L (32-36) g/dL RDW 12.7 (11.5-14.0) % Plt Count 352 (150-450) x10^3/uL MPV 10.3 (7.5-11.0) fL Gran % 51.1 (36.0-66.0) % Immature Gran % (Auto) 0.4 (0.00-0.4) % Nucleat RBC Rel Count 0.0 (0.00-0.1) % Eos # (Auto) 0.44 (0-0.5) x10^3/uL Immature Gran # (Auto) 0.03 (0.00-0.03) x10^3u/L Absolute Lymphs (auto) 2.79 (1.0-4.6) x10^3/uL Absolute Monos (auto) 0.51 (0.0-1.3) x10^3/uL Absolute Nucleated RBC 0.00 (0.00-0.01) x10^3u/L Lymphocytes % 35.8 (24.0-44.0) % Monocytes % 6.5 (0.0-12.0) % Eosinophils % 5.6 H (0.00-5.0) % Basophils % 0.6 (0.0-0.4) % Absolute Granulocytes 3.97 (1.4-6.9) x10^3/uL Basophils # 0.05 (0-0.4) x10^3/uL PT (9.4-12.5) SECONDS INR (0.8-3.0) APTT (25.1-36.5) SECONDS D-Dimer (0.0-0.50) mg/L Sodium (137-145) mmol/L Potassium (3.5-5.1) mmol/L Chloride (98-107) mmol/L Carbon Dioxide (22-30) mmol/L Anion Gap (5-15) MEQ/L BUN (7-17) mg/dL Creatinine (0.52-1.04) mg/dL Estimated GFR ML/MIN Glucose (74-106) mg/dL Calcium (8.4-10.2) mg/dL Total Bilirubin (0.2-1.3) mg/dL AST (14-36) U/L ALT (0-35) U/L Alkaline Phosphatase (38-126) U/L Troponin I (0.000-0.034) ng/mL Serum Total Protein (6.3-8.2) g/dL Albumin (3.5-5.0) g/dL - Progress Progress Note: 07/08/22 18:53 Nursing note and vital signs reviewed No food or housing insecurities noted All lab results reviewed and shared w pt CXR result reviewed and shared w pt Well's Criteria neg/DD neg Heart score 1 Pain most likely non-cardiac in nature. Will discharge home for outpt f/u Counseled pt/family regarding: lab results, diagnosis, need for follow-up, rad results Medical Desision Making - Diagnostic Testing Diagnostic test were ordered, analyzed, and reviewed by me: Yes Radiological Interpretation: Discussed w/ radiologist - Risk of complications Low Risk: Low risk of morbidity from additional dx testing or treatment - Departure Departure Disposition: Home Clinical Impression: Chest pain Condition: Stable Critical Care Time: No Referrals: SKYLAR PARSON NP [Primary Care Provider] - Follow up/PCP as directed Instructions: Chest Pain (DC) Additional Instructions: Follow up with your family MD Return to ER for increasing pain or shortness of breath
[2022-07-08 16:06] LABS: Absolute Neutrophil Ct (ANC) 3.97 x10^3/uL (1.4-6.9); BASOPHIL % 0.6 % (0.0-0.4); Basophil (Absolute #) 0.05 x10^3/uL (0-0.4); Eosinophil % 5.6 % (0.00-5.0); Eosinophil (Absolute #) 0.44 x10^3/uL (0-0.5); IMMATURE GRAN # 0.03 x10^3u/L (0.00-0.03); IMMATURE GRAN % 0.4 % (0.00-0.4); Lymphocyte (Absolute #) 2.79 x10^3/uL (1.0-4.6); Lymphocytes % 35.8 % (24.0-44.0); Mean Corpuscular Hemoglobin 27.3 pg (26-32); Mean Corpuscular Hgb Concent. 31.7 g/dL (32-36); Mean Platelet Volume 10.3 fL (7.5-11.0); Monocyte (Absolute #) 0.51 x10^3/uL (0.0-1.3); Monocytes % 6.5 % (0.0-12.0); Neutrophil % 51.1 % (36.0-66.0); Platelet Count 352 x10^3/uL (150-450); Red Blood Count 4.77 x10^6/uL (4.1-5.4); Red Cell Distribution Width 12.7 % (11.5-14.0); White Blood Count 7.8 x10^3/uL (4.0-10.5)
[2022-07-08 16:18] LABS: D-DIMER QUANTITATIVE 0.38 mg/L (0.0-0.50); INR 0.94 (0.8-3.0); PROTIME 10.3 SECONDS (9.4-12.5); PTT 27.5 SECONDS (25.1-36.5)
--- NOTE | 2022-07-08 16:37 | XRAY ---
Indication: Chest pain. Comparison: April 24, 2020 Portable chest again demonstrates normal heart, lungs, and bony thorax.
[2022-07-08 16:38] LABS: ALBUMIN 4.3 g/dL (3.5-5.0); ALKALINE PHOSPHATASE 71 U/L (38-126); ANION GAP 11.6 MEQ/L (5-15); BLOOD UREA NITROGEN 16 mg/dL (7-17); CHLORIDE 103 mmol/L (98-107); Calcium 9.1 mg/dL (8.4-10.2); Carbon Dioxide 31 mmol/L (22-30); EST GLOMERULAR FILTRATION RATE > 60.0 ML/MIN; Glucose 103 mg/dL (74-106); Potassium 4.1 mmol/L (3.5-5.1); SGOT/AST 30 U/L (14-36); SGPT/ALT 33 U/L (0-35); SODIUM 141 mmol/L (137-145); Total Protein 7.7 g/dL (6.3-8.2)
[2022-07-08 16:48] VITALS: BP 131/85
[2022-07-08 17:05] VITALS: PULSE 77
[2022-07-08 17:11] VITALS: O2SAT 98
== END 2022-07-08 17:16 | disposition home or self-care (01) ==
LOC: ED 15:16
DX: R07.9 Chest pain, unspecified (principal); R06.00 Dyspnea, unspecified; R11.0 Nausea; I10 Essential (primary) hypertension; Z79.899 Other long term (current) drug therapy; Z28.310 Unvaccinated for COVID-19
CPT/HCPCS: 36000; 36415; 71045; 80053; 84484; 85025; 85379; 85610; 85730; 93005; 99284